=== PATIENT | male | born 1990 | race Caucasian/White ===

== ENCOUNTER 2016-11-28 21:00 | Emergency (ER) | payer MEDICARE, OTHER ==
[2016-11-28 21:07] VITALS: PULSE 85; RESP 20; TEMP 98.8
--- NOTE | 2016-11-28 21:24 | ED ---
Extremity Problem HPI - General Chief complaint: Extremity Problem,Nontraumatic Stated complaint: left leg pain Time Seen by Provider: 11/28/16 21:21 Source: patient, RN notes reviewed Mode of arrival: ambulatory Limitations: no limitations - History of Present Illness Initial comments: 26-year-old male presents to emergency room chief complaint of left calf pain. Patient states he's been driving around about 5 cigars a day for the past 2 weeks. Patient states he started some Pain and tightness. Patient denies any chest pain or shortness of breath with this. Patient states that he never anything this before. Patient denies any falls traumas or injuries. Patient states bony pains for just deep in the calf. Patient states is not currently having any other symptoms at this time.Patient denies any recent fever, chills, shortness of breath, chest pain, back pain, abdominal pain, nausea vomiting, numbness or tingling, dysuria or hematuria, constipation or diarrhea, headaches or visual changes, or any other current symptoms. - Related Data Home Medications Medication Instructions Recorded Confirmed Fenofibrate [Lofibra] 54 mg PO HS 09/06/16 11/28/16 LORazepam [Ativan] 1 mg PO TID 09/06/16 11/28/16 [place] Carbonate 300 mg PO TID 09/06/16 11/28/16 Ondansetron Odt [Zofran ODT] 4 mg PO Q8H PRN 09/08/16 11/28/16 Albuterol Inhaler [Ventolin Hfa 2 puff INHALATION RT-QID PRN 11/28/16 11/28/16 Inhaler] Dicyclomine [Bentyl] 20 mg PO QID PRN 11/28/16 11/28/16 Fluticasone/Vilanterol [Breo 1 puff INHALATION RT-DAILY 11/28/16 11/28/16 Ellipta 200-25 Mcg INH] PARoxetine HCL [Paxil] 30 mg PO HS 11/28/16 11/28/16 QUEtiapine FUMARATE [SEROquel] 300 mg PO HS 11/28/16 11/28/16 Previous Rx's Medication Instructions Recorded Cholecalciferol [Vitamin D3] 1,000 unit PO DAILY #14 tab 01/28/16 Multivitamin [Men's Multi-Vitamin] 1 tab PO DAILY #14 tablet 01/28/16 Omeprazole [PriLOSEC] 40 mg PO DAILY #14 capsule. 01/28/16 Allergies Allergy/AdvReac Type Severity Reaction Status Date / Time Latex, Natural Rubber Allergy Severe Rash/Hives Verified 11/28/16 21:07 bupropion HCl Allergy Anaphylaxis Verified 11/28/16 21:07 [From Wellbutrin] divalproex sodium Allergy Swelling Verified 11/28/16 21:07 [From Depakote] gabapentin [From Neurontin] Allergy Anaphylaxis Verified 11/28/16 21:07 lamotrigine [From Lamictal] Allergy Swelling Verified 11/28/16 21:07 NSAIDS (Non-Steroidal Allergy Rash/Hives Verified 11/28/16 21:07 Anti-Inflamma Review of Systems ROS Statement: Those systems with pertinent positive or pertinent negative responses have been documented in the HPI. ROS Other: All systems not noted in ROS Statement are negative. Past Medical History Past Medical History: GERD/Reflux, Hyperlipidemia, Osteoarthritis (OA), Sleep Apnea/CPAP/BIPAP Additional Past Medical History / Comment(s): IRRITABLE BOWEL, PAST ANEMIA CHRONIC BACK PAIN/DDD LUMBAR REGION,KIDNEY STONE asperger's syndrome, chronic heat rash to R-arm, R-torso and back. History of Any Multi-Drug Resistant Organisms: None Reported Past Surgical History: Adenoidectomy, Appendectomy, Tonsillectomy Additional Past Surgical History / Comment(s): UPPP, VASECTOMY, SX FOR UNDESCENDED TESTICLE RT SIDE,EGD W/BX(NEG), GRAFTS ON GUMS YOUTH,LUMBAR FACET ARTHROPATHY LEFT L4,L5 SACRAL ALA MEDIAL BRACH RADIAL FREQUENCY ABLATION Past Anesthesia/Blood Transfusion Reactions: No Reported Reaction Additional Past Anesthesia/Blood Transfusion Reaction / Comment(s): CLAUSTERPHOBIA Past Psychological History: Anxiety, Bipolar, Depression, PTSD Additional Psychological History / Comment(s): PYSCHOSIS,AUTISM , LIVES WITH HIS MOM SHE POA FOR MEDICL BUT PT SIGNS OWN CONSENTS Smoking Status: Heavy tobacco smoker Past Alcohol Use History: None Reported Additional Past Alcohol Use History / Comment(s): Patient was a smoker for 7 years and quit one and half years ago. He states he quit chewing tobacco 1 year ago. He denies any medical marijuana, marijuana or street drug use. He denies any alcohol use. Patient is single and does not have any children. Past Drug Use History: None Reported - Past Family History Father Family Medical History: Diabetes Mellitus Additional Family Medical History / Comment(s): Patient's father is alive with no major medical problems. Mother Family Medical History: Fibromyalgia, Thyroid Disorder Additional Family Medical History / Comment(s): IBS Sister(s) Additional Family Medical History / Comment(s): Patient has 1 sister with no major medical problems. He does not have any brothers. General Exam - General Exam Comments Initial Comments: General: The patient is awake and alert, in no distress, and does not appear acutely ill. Neck: The neck is supple, there is no tenderness. Cardiovascular: There is a regular rate and rhythm. No murmur, rub or gallop is appreciated. Respiratory: Lungs are clear to auscultation, respirations are non-labored, breath sounds are equal. No wheezes, stridor, rales, or rhonchi. Musculoskeletal: Sensation intact with 2+ pulses. Left extremity. Plantar motion of left hip left knee and left ankle. No bony tenderness. Patient does have tenderness to palpation of the left calf with a positive Homans sign. No associated swelling noted. No redness or erythema. Less than 2 capillary refill. Neurological: CN II-XII intact, There are no obvious motor or sensory deficits. Coordination appears grossly intact. Speech is normal. Skin: Skin is warm and dry and no rashes or lesions are noted. Psychiatric: Normal mood and affect. Limitations: no limitations Course Vital Signs 11/28/16 21:03 Temperature 98.8 F Pulse Rate 85 Respiratory 20 Rate O2 Sat by Pulse 100 Oximetry Medical Decision Making - Medical Decision Making 26-year-old male presents to emergency room chief complaint of left calf pain. At this time This patient underwent an ultrasound. is negative for dvt. at this time we discussed the patient with a Muscle strain. We discussed Motrin Tylenol for pain control. Discussed return parameters and follow-up. We discussed all patient's questions. He stated he understood. This will be discharged home. - Radiology Data Radiology results: report reviewed, image reviewed Disposition Clinical Impression: Pain of left calf Disposition: HOME SELF-CARE Condition: Stable Instructions: Leg Cramps (ED) Additional Instructions: Please use medication as discussed. Please follow up with family doctor if symptoms have not improved over the next two days. Please return to the emergency room if your symptoms increase or worsen or for any other concerns. Referrals: Lázaro Ramsey MD [Primary Care Provider] - 1-2 days Time of Disposition: 23:29
--- NOTE | 2016-11-28 23:28 | US ---
EXAMINATION TYPE: US venous doppler duplex LE LT DATE OF EXAM: 11/28/2016 10:59 PM COMPARISON: NONE CLINICAL HISTORY: left leg pain, no surgeries, no hx of blood clots, not on any blood thinners. SIDE PERFORMED: left VESSELS IMAGED: External Iliac Vein (EIV) Common Femoral Vein Deep Femoral Vein Greater Saphenous Vein * Femoral Vein Popliteal Vein Small Saphenous Vein * Proximal Calf Veins (* superficial vessels) TECHNOLOGIST IMPRESSION: Left Leg: Appears negative for DVT IMPRESSION: Normal exam. No evidence of deep venous thrombosis in the left leg.
== END 2016-11-28 23:34 | disposition home or self-care (01) ==
LOC: EC 21:00
DX: M79.662 Pain in left lower leg (principal); G47.30 Sleep apnea, unspecified; M19.90 Unspecified osteoarthritis, unspecified site; F84.5 Asperger's syndrome; K58.9 Irritable bowel syndrome, unspecified; F31.9 Bipolar disorder, unspecified; K21.9 Gastro-esophageal reflux disease without esophagitis; F43.10 Post-traumatic stress disorder, unspecified; F17.200 Nicotine dependence, unspecified, uncomplicated; Z88.8 Allergy status to other drugs, medicaments and biological substances; Z88.6 Allergy status to analgesic agent; Z91.040 Latex allergy status; Z79.899 Other long term (current) drug therapy
CPT/HCPCS: 99283

== ENCOUNTER 2016-12-02 15:37 | Emergency (ER) | payer MEDICARE, OTHER ==
[2016-12-02 15:48] VITALS: BP 136/72; PULSE 90; RESP 18; TEMP 98.7
--- NOTE | 2016-12-02 16:28 | XR ---
EXAMINATION TYPE: XR knee complete LT DATE OF EXAM: 12/02/2016 4:22 PM COMPARISON: NONE HISTORY: 26-year-old male left knee pain after fall yesterday TECHNIQUE: 3 views FINDINGS: No acute fracture, subluxation, or dislocation. No significant knee joint effusion seen. Extensor mec hanism appears intact. Corticated bony irregularity at the tibial tuberosity. Mild anterior soft tiss ue swelling along the infrapatellar region. IMPRESSION: 1. No acute osseous abnormality seen. 2. Some bony changes at the tibial tuberosity may reflect prior Jaye-Schlatter's disease. 3. Some anterior soft tissue swelling along the infrapatellar region could relate to soft tissue inju ry.
--- NOTE | 2016-12-02 16:31 | ED ---
Lower Extremity Injury HPI - General Chief Complaint: Extremity Injury, Lower Stated Complaint: Fall/Leg Pain Time Seen by Provider: 12/02/16 16:10 Source: patient, RN notes reviewed Mode of arrival: ambulatory Limitations: no limitations - History of Present Illness Initial Comments: Patient is a 26-year-old male presenting to the EC stating that he slipped on the ice and injured his left knee. Patient reports that he fell on his knee and swelling. Patient reports that he was recently seen in the EC for likely hours unrelated to this injury. He denies any other injuries on the fall. Patient states that he is able to walk over his leg however he does have due to pain. Denies any peripheral paresthesias and denies any hip or ankle pain. Patient has full range of motion of his foot and toes. Patient denies any recent fever, chills, shortness of breath, chest pain, back pain, abdominal pain , nausea vomiting, numbness or tingling, dysuria or hematuria, constipation or diarrhea, headaches or visual changes, or any other current symptoms - Related Data Home Medications Medication Instructions Recorded Confirmed Fenofibrate [Lofibra] 54 mg PO HS 09/06/16 12/02/16 LORazepam [Ativan] 1 mg PO TID 09/06/16 12/02/16 [place] Carbonate 300 mg PO TID 09/06/16 12/02/16 Ondansetron Odt [Zofran ODT] 4 mg PO Q8H PRN 09/08/16 12/02/16 Albuterol Inhaler [Ventolin Hfa 2 puff INHALATION RT-QID PRN 11/28/16 12/02/16 Inhaler] Dicyclomine [Bentyl] 20 mg PO QID PRN 11/28/16 12/02/16 Fluticasone/Vilanterol [Breo 1 puff INHALATION RT-DAILY 11/28/16 12/02/16 Ellipta 200-25 Mcg INH] PARoxetine HCL [Paxil] 30 mg PO HS 11/28/16 12/02/16 QUEtiapine FUMARATE [SEROquel] 300 mg PO HS 11/28/16 12/02/16 Previous Rx's Medication Instructions Recorded Cholecalciferol [Vitamin D3] 1,000 unit PO DAILY #14 tab 01/28/16 Multivitamin [Men's Multi-Vitamin] 1 tab PO DAILY #14 tablet 01/28/16 Omeprazole [PriLOSEC] 40 mg PO DAILY #14 capsule. 01/28/16 Allergies Allergy/AdvReac Type Severity Reaction Status Date / Time Latex, Natural Rubber Allergy Severe Rash/Hives Verified 12/02/16 15:49 bupropion HCl Allergy Anaphylaxis Verified 12/02/16 15:49 [From Wellbutrin] divalproex sodium Allergy Swelling Verified 12/02/16 15:49 [From Depakote] gabapentin [From Neurontin] Allergy Anaphylaxis Verified 12/02/16 15:49 lamotrigine [From Lamictal] Allergy Swelling Verified 12/02/16 15:49 NSAIDS (Non-Steroidal Allergy Rash/Hives Verified 12/02/16 15:49 Anti-Inflamma Review of Systems ROS Statement: Those systems with pertinent positive or pertinent negative responses have been documented in the HPI. ROS Other: All systems not noted in ROS Statement are negative. Past Medical History Past Medical History: GERD/Reflux, Hyperlipidemia, Osteoarthritis (OA), Sleep Apnea/CPAP/BIPAP Additional Past Medical History / Comment(s): IRRITABLE BOWEL, PAST ANEMIA CHRONIC BACK PAIN/DDD LUMBAR REGION,KIDNEY STONE asperger's syndrome, chronic heat rash to R-arm, R-torso and back. History of Any Multi-Drug Resistant Organisms: None Reported Past Surgical History: Adenoidectomy, Appendectomy, Tonsillectomy Additional Past Surgical History / Comment(s): UPPP, VASECTOMY, SX FOR UNDESCENDED TESTICLE RT SIDE,EGD W/BX(NEG), GRAFTS ON GUMS YOUTH,LUMBAR FACET ARTHROPATHY LEFT L4,L5 SACRAL ALA MEDIAL BRACH RADIAL FREQUENCY ABLATION Past Anesthesia/Blood Transfusion Reactions: No Reported Reaction Additional Past Anesthesia/Blood Transfusion Reaction / Comment(s): CLAUSTERPHOBIA Past Psychological History: Anxiety, Bipolar, Depression, PTSD Additional Psychological History / Comment(s): PYSCHOSIS,AUTISM , LIVES WITH HIS MOM SHE POA FOR MEDICL BUT PT SIGNS OWN CONSENTS Smoking Status: Heavy tobacco smoker Past Alcohol Use History: Daily Additional Past Alcohol Use History / Comment(s): Patient was a smoker for 7 years and quit one and half years ago. He states he quit chewing tobacco 1 year ago. He denies any medical marijuana, marijuana or street drug use. He denies any alcohol use. Patient is single and does not have any children. Past Drug Use History: None Reported - Past Family History Father Family Medical History: Diabetes Mellitus Additional Family Medical History / Comment(s): Patient's father is alive with no major medical problems. Mother Family Medical History: Fibromyalgia, Thyroid Disorder Additional Family Medical History / Comment(s): IBS Sister(s) Additional Family Medical History / Comment(s): Patient has 1 sister with no major medical problems. He does not have any brothers. General Exam - General Exam Comments Initial Comments: Is a pleasant 18-year-old male. He is on appear to be in any acute distress. Limitations: no limitations General appearance: alert, in no apparent distress Head exam: Present: atraumatic, normocephalic, normal inspection Eye exam: Present: normal appearance, PERRL, EOMI. Absent: scleral icterus, conjunctival injection, periorbital swelling ENT exam: Present: normal exam, mucous membranes moist Neck exam: Present: normal inspection. Absent: tenderness, meningismus, lymphadenopathy Respiratory exam: Present: normal lung sounds bilaterally. Absent: respiratory distress, wheezes, rales, rhonchi, stridor Cardiovascular Exam: Present: regular rate, normal rhythm, normal heart sounds. Absent: systolic murmur, diastolic murmur, rubs, gallop, clicks Extremities exam: Present: normal inspection, full ROM, normal capillary refill. Absent: tenderness, pedal edema, joint swelling, calf tenderness Left Upper Leg exam: Present: normal inspection, full ROM Knee exam: Present: normal inspection, full ROM Lower Leg exam: Present: normal inspection, full ROM (Evidence of [place]- Schlatter syndrome with increased tibial tuberosity.), tenderness (mild tenderness to MCL) Ankle exam: Present: normal inspection, full ROM Foot/Toe exam: Present: normal inspection, full ROM Neurovascular tendon exam: Present: no vascular compromise Gait: observed and normal Back exam: Present: normal inspection Neurological exam: Present: alert, oriented X3, CN II-XII intact Psychiatric exam: Present: normal affect, normal mood Skin exam: Present: warm, dry, intact, normal color. Absent: rash Course Vital Signs 12/02/16 15:45 Temperature 98.7 F Pulse Rate 90 Respiratory 18 Rate Blood Pressure 136/72 O2 Sat by Pulse 96 Oximetry Medical Decision Making - Medical Decision Making Patient is 26-year-old with chief complaint of left knee injury after slipping on the ice and falling. He denies any other injury. X-rays read to know no acute abnormalities. 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 Patient will be given an Zeeshan wrap and anti-inflammatory medications. Patient also be given a referral to orthopedics. - Radiology Data Radiology results: report reviewed Left knee x-ray reveals no acute osseous abnormality seen. There are some bony changes at the tibial tuberosity that may reflect prior Neil-Schlatter's disease. Some anterior soft tissue swelling along the infrapatellar region which could relate to a soft tissue injury. Was read by Dr. Elam. Disposition Clinical Impression: Strain of left knee Disposition: HOME SELF-CARE Condition: Good Instructions: Knee Sprain (ED) Additional Instructions: Patient started to rest, ice, and elevate leg. Follow-up with a orthopedic physician symptoms continue to persist. Take anti-inflammatory medications as discussed. Return to the EC if any alarming signs or symptoms occur. Referrals: Lázaro Ramsey MD [Primary Care Provider] - 1-2 days Time of Disposition: 16:34
== END 2016-12-02 16:41 | disposition home or self-care (01) ==
LOC: EC 15:37
DX: S86.812A Strain of other muscle(s) and tendon(s) at lower leg level, left leg, initial encounter (principal); W00.0XXA Fall on same level due to ice and snow, initial encounter; E78.5 Hyperlipidemia, unspecified; M19.90 Unspecified osteoarthritis, unspecified site; Z79.899 Other long term (current) drug therapy; Z88.8 Allergy status to other drugs, medicaments and biological substances; Z88.6 Allergy status to analgesic agent; Z91.040 Latex allergy status; F17.200 Nicotine dependence, unspecified, uncomplicated; Z79.51 Long term (current) use of inhaled steroids; F43.10 Post-traumatic stress disorder, unspecified
CPT/HCPCS: 99283

== ENCOUNTER 2016-12-23 00:20 | Emergency (ER) | payer MEDICARE, OTHER ==
--- NOTE | 2016-12-23 00:29 | ED ---
General Adult HPI - General Stated complaint: SOB Time Seen by Provider: 12/23/16 00:20 Source: RN notes reviewed - History of Present Illness Initial comments: This is a 26-year-old male who presents emergency Department by EMS after having an asthma attack at home. Patient states she could barely breathe when he called EMS. EMS states he wasn't moving much air at the scene they gave him 2 breathing treatments as well as some Solu-Medrol. Patient states that much better but not quite to his baseline. Patient states this started about 2 hours prior to arrival. Patient states prior to that he was having no symptoms. Patient denied any fever chills or cough recently. Patient denied any chest pain. Patient denied headache patient denied numbness weakness. Patient denied abdominal pain patient denies nausea vomiting diarrhea. Patient denied any lightheadedness dizziness or near syncopal episode. Patient denies any leg swelling or calf pain. Patient states he only has a rescue inhaler at home and he uses had a couple of times it did not seem to help. - Related Data Home Medications Medication Instructions Recorded Confirmed Fenofibrate [Lofibra] 54 mg PO HS 09/06/16 12/23/16 LORazepam [Ativan] 1 mg PO TID 09/06/16 12/23/16 [place] Carbonate 300 mg PO TID 09/06/16 12/23/16 Ondansetron Odt [Zofran ODT] 4 mg PO Q8H PRN 09/08/16 12/23/16 Albuterol Inhaler [Ventolin Hfa 2 puff INHALATION RT-QID PRN 11/28/16 12/23/16 Inhaler] Dicyclomine [Bentyl] 20 mg PO QID PRN 11/28/16 12/23/16 Fluticasone/Vilanterol [Breo 1 puff INHALATION RT-DAILY 11/28/16 12/23/16 Ellipta 200-25 Mcg INH] PARoxetine HCL [Paxil] 30 mg PO HS 11/28/16 12/23/16 QUEtiapine FUMARATE [SEROquel] 300 mg PO HS 11/28/16 12/23/16 Previous Rx's Medication Instructions Recorded Cholecalciferol [Vitamin D3] 1,000 unit PO DAILY #14 tab 01/28/16 Multivitamin [Men's Multi-Vitamin] 1 tab PO DAILY #14 tablet 01/28/16 Omeprazole [PriLOSEC] 40 mg PO DAILY #14 capsule. 01/28/16 predniSONE 40 mg PO DAILY #8 tab 12/23/16 Allergies Allergy/AdvReac Type Severity Reaction Status Date / Time Latex, Natural Rubber Allergy Severe Rash/Hives Verified 12/23/16 00:32 bupropion HCl Allergy Anaphylaxis Verified 12/23/16 00:32 [From Wellbutrin] divalproex sodium Allergy Swelling Verified 12/23/16 00:32 [From Depakote] gabapentin [From Neurontin] Allergy Anaphylaxis Verified 12/23/16 00:32 lamotrigine [From Lamictal] Allergy Swelling Verified 12/23/16 00:32 NSAIDS (Non-Steroidal Allergy Rash/Hives Verified 12/23/16 00:32 Anti-Inflamma Review of Systems ROS Statement: Those systems with pertinent positive or pertinent negative responses have been documented in the HPI. ROS Other: All systems not noted in ROS Statement are negative. Past Medical History Past Medical History: GERD/Reflux, Hyperlipidemia, Osteoarthritis (OA), Sleep Apnea/CPAP/BIPAP Additional Past Medical History / Comment(s): IRRITABLE BOWEL, PAST ANEMIA CHRONIC BACK PAIN/DDD LUMBAR REGION,KIDNEY STONE asperger's syndrome, chronic heat rash to R-arm, R-torso and back. History of Any Multi-Drug Resistant Organisms: None Reported Past Surgical History: Adenoidectomy, Appendectomy, Tonsillectomy Additional Past Surgical History / Comment(s): UPPP, VASECTOMY, SX FOR UNDESCENDED TESTICLE RT SIDE,EGD W/BX(NEG), GRAFTS ON GUMS YOUTH,LUMBAR FACET ARTHROPATHY LEFT L4,L5 SACRAL ALA MEDIAL BRACH RADIAL FREQUENCY ABLATION Past Anesthesia/Blood Transfusion Reactions: No Reported Reaction Additional Past Anesthesia/Blood Transfusion Reaction / Comment(s): CLAUSTERPHOBIA Past Psychological History: Anxiety, Bipolar, Depression, PTSD Additional Psychological History / Comment(s): PYSCHOSIS,AUTISM , LIVES WITH HIS MOM SHE POA FOR MEDICL BUT PT SIGNS OWN CONSENTS Smoking Status: Heavy tobacco smoker Past Alcohol Use History: Daily Additional Past Alcohol Use History / Comment(s): Patient was a smoker for 7 years and quit one and half years ago. He states he quit chewing tobacco 1 year ago. He denies any medical marijuana, marijuana or street drug use. He denies any alcohol use. Patient is single and does not have any children. Past Drug Use History: None Reported - Past Family History Father Family Medical History: Diabetes Mellitus Additional Family Medical History / Comment(s): Patient's father is alive with no major medical problems. Mother Family Medical History: Fibromyalgia, Thyroid Disorder Additional Family Medical History / Comment(s): IBS Sister(s) Additional Family Medical History / Comment(s): Patient has 1 sister with no major medical problems. He does not have any brothers. General Exam - General Exam Comments Initial Comments: GENERAL: Patient is well-developed and well-nourished. Patient is nontoxic and well- hydrated and is in mild distress. ENT: Neck is soft and supple. No significant lymphadenopathy is noted. Oropharynx is clear. Moist mucous membranes. Neck has full range of motion without eliciting any pain. EYES: The sclera were anicteric and conjunctiva were pink and moist. Extraocular movements were intact and pupils were equal round and reactive to light. Eyelids were unremarkable. PULMONARY: Unlabored respirations. Good breath sounds bilaterally. No audible rales rhonchi or wheezing was noted. CARDIOVASCULAR: Patient is tachycardic at about 110 beats a minute ABDOMEN: Soft and nontender with normal bowel sounds. No palpable organomegaly was noted. There is no palpable pulsatile mass. SKIN: Skin is clear with no lesions or rashes and otherwise unremarkable. NEUROLOGIC: Patient is alert and oriented x3. Cranial nerves II through XII are grossly intact. Motor and sensory are also intact. Normal speech, volume and content. Symmetrical smile. MUSCULOSKELETAL: Normal extremities with adequate strength and full range of motion. LYMPHATICS: No significant lymphadenopathy is noted PSYCHIATRIC: Normal psychiatric evaluation. Course Vital Signs 12/23/16 12/23/16 00:20 01:10 Temperature 97.8 F Pulse Rate 115 H 98 Respiratory 24 18 Rate Blood Pressure 125/85 133/81 O2 Sat by Pulse 100 Oximetry Medical Decision Making - Medical Decision Making EKG shows a sinus tachycardia at 109 bpm [place] interval 236 QRS is under 22 QT interval 368 QTC is 495. Patient's EKG shows no ST segment elevation or depression or T wave abnormalities are noted Patient's chest x-ray shows no acute abdomen. I went back into the room to reevaluate the patient his lungs were clear and he stated he felt back to his baseline. Patient states he does have access to a nebulizer at home and he will do that next few days. - Lab Data Result diagrams: 12/23/16 00:38 12/23/16 00:38 Lab Results 12/23/16 12/23/16 Range/Units 00:38 00:38 WBC 6.7 (3.8-10.6) k/uL RBC 4.40 (4.30-5.90) m/uL Hgb 13.4 (13.0-17.5) gm/dL Hct 41.7 (39.0-53.0) % MCV 94.7 (80.0-100.0) fL MCH 30.5 (25.0-35.0) pg MCHC 32.2 (31.0-37.0) g/dL RDW 13.5 (11.5-15.5) % Plt Count 217 (150-450) k/uL Neutrophils % 62 % Lymphocytes % 27 % Monocytes % 6 % Eosinophils % 3 % Basophils % 1 % Neutrophils # 4.2 (1.3-7.7) k/uL Lymphocytes # 1.8 (1.0-4.8) k/uL Monocytes # 0.4 (0-1.0) k/uL Eosinophils # 0.2 (0-0.7) k/uL Basophils # 0.0 (0-0.2) k/uL Sodium 141 (137-145) mmol/L Potassium 3.5 (3.5-5.1) mmol/L Chloride 107 (98-107) mmol/L Carbon Dioxide 23 (22-30) mmol/L Anion Gap 11 mmol/L BUN 16 (9-20) mg/dL Creatinine 1.00 (0.66-1.25) mg/dL Est GFR (MDRD) Af Amer >60 (>60 ml/min/1.73 sqM) Est GFR (MDRD) Non-Af >60 (>60 ml/min/1.73 sqM) Glucose 139 H (74-99) mg/dL Calcium 9.9 (8.4-10.2) mg/dL Total Bilirubin 0.8 (0.2-1.3) mg/dL AST 20 (17-59) U/L ALT 32 (21-72) U/L Alkaline Phosphatase 40 (38-126) U/L Total Protein 6.9 (6.3-8.2) g/dL Albumin 4.4 (3.5-5.0) g/dL Disposition Clinical Impression: Acute asthma exacerbation Disposition: HOME SELF-CARE Instructions: Asthma (ED) Prescriptions: predniSONE 40 mg PO DAILY #8 tab Referrals: Lázaro Ramsey MD [Primary Care Provider] - 1-2 days Time of Disposition: 01:35
[2016-12-23 00:32] VITALS: TEMP 97.8
[2016-12-23 01:00] LABS: Basophils % (A) 1 %; CHCM 32.9; Eosinophils # (A) 0.2 k/uL (0-0.7); Eosinophils % (A) 3 %; HCT 41.7 % (39.0-53.0); HDW 2.53; HGB 13.4 gm/dL (13.0-17.5); Luc % (Auto) 2; Lymphocytes # (A) 1.8 k/uL (1.0-4.8); Lymphocytes % (A) 27 %; MCH 30.5 pg (25.0-35.0); MCHC 32.2 g/dL (31.0-37.0); MCV 94.7 fL (80.0-100.0); Mean Platelet Volume 8.8; Monocytes # (A) 0.4 k/uL (0-1.0); Monocytes % (A) 6 %; Neutrophils # (A) 4.2 k/uL (1.3-7.7); Neutrophils % (A) 62 %; RDW 13.5 % (11.5-15.5); WBC 6.7 k/uL (3.8-10.6); WBC (Perox) 6.88
--- NOTE | 2016-12-23 01:14 | XR ---
EXAMINATION TYPE: XR chest 2V DATE OF EXAM: 12/23/2016 12:47 AM COMPARISON: October 28, 2016 HISTORY: Difficulty in breathing TECHNIQUE: Frontal and lateral views of the chest are obtained. FINDINGS: There is suggestion of azygous fissure in the right upper lobe of lung. There is possibility of chron ic bronchitis changes with peribronchial cuffing. There is suggestion of mild left-sided pleural effu nadira and left basilar lung infiltrate. No pneumothorax is noted. The cardiac silhouette size is within normal limits. The osseous structures are intact. IMPRESSION: 1. Suggestion of mild left-sided pleural effusion and left basilar lung infiltrate better seen in the lateral view. 2. Possible chronic bronchitis.
[2016-12-23 01:21] LABS: ALT 32 U/L (21-72); AST 20 U/L (17-59); Alkaline Phosphatase 40 U/L (38-126); Anion Gap 11 mmol/L; Blood Urea Nitrogen 16 mg/dL (9-20); Calcium 9.9 mg/dL (8.4-10.2); Carbon Dioxide 23 mmol/L (22-30); Chloride 107 mmol/L (98-107); Glucose 139 mg/dL (74-99); Non-African American GFR(MDRD) >60 (>60 ml/min/1.73 sqM); Potassium 3.5 mmol/L (3.5-5.1); Sodium 141 mmol/L (137-145); Total Bilirubin 0.8 mg/dL (0.2-1.3); Total Protein 6.9 g/dL (6.3-8.2)
[2016-12-23 01:43] VITALS: BP 133/75; PULSE 100; RESP 20
== END 2016-12-23 01:42 | disposition home or self-care (01) ==
LOC: EC 00:20
DX: J45.901 Unspecified asthma with (acute) exacerbation (principal); F41.9 Anxiety disorder, unspecified; E78.5 Hyperlipidemia, unspecified; F31.9 Bipolar disorder, unspecified; K58.9 Irritable bowel syndrome, unspecified; Z79.899 Other long term (current) drug therapy; Z79.51 Long term (current) use of inhaled steroids; Z88.8 Allergy status to other drugs, medicaments and biological substances; Z91.040 Latex allergy status; G47.30 Sleep apnea, unspecified; Z99.89 Dependence on other enabling machines and devices; Z87.891 Personal history of nicotine dependence
CPT/HCPCS: 36415; 71020; 80053; 85025; 93005; 99285

== ENCOUNTER 2016-12-23 18:29 | Observation (INO) | payer MEDICARE, OTHER ==
[2016-12-23] MEDS ORDERED: ALBUTEROL NEBULIZED 2.5 MG/3 ML INHALATION STA (18:39)
[2016-12-23] MEDS ORDERED: IPRATROPIUM-ALBUTEROL 3 ML NEB INHALATION STA (19:01)
[2016-12-23] MEDS ORDERED: SODIUM CHLORIDE 0.9% 1,000 ML IV ONE (19:06)
[2016-12-23] MEDS ORDERED: methylPREDNISolone SOD SUCCI 125 MG/2 ML VIAL IV STA (19:06)
[2016-12-23] MEDS ORDERED: ACETAMINOPHEN TAB 500 MG TAB PO STA (19:07)
--- NOTE | 2016-12-23 19:27 | ED ---
SOB HPI - General Chief Complaint: Shortness of Breath Stated Complaint: nya Time Seen by Provider: 12/23/16 18:56 Source: patient Mode of arrival: ambulatory Limitations: no limitations - History of Present Illness Initial Comments: This is a 26-year-old male with a recent diagnosis of asthma who presents emergency department for worsening shortness of breath over the last 24 hours. He was seen here in the emergency department earlier this morning and was discharged home after negative workup. He states he's been using his albuterol throughout the day and he has had progressively worsening shortness of breath. He denies any cough. No chest pain. No abdominal pain. No fevers or chills at home. He denies any other complaints. - Related Data Home Medications Medication Instructions Recorded Confirmed Fenofibrate [Lofibra] 54 mg PO HS 09/06/16 12/23/16 LORazepam [Ativan] 1 mg PO TID PRN 09/06/16 12/23/16 [place] Carbonate 300 mg PO TID 09/06/16 12/23/16 Ondansetron Odt [Zofran ODT] 4 mg PO Q8H PRN 09/08/16 12/23/16 Albuterol Inhaler [Ventolin Hfa 2 puff INHALATION RT-QID PRN 11/28/16 12/23/16 Inhaler] Dicyclomine [Bentyl] 20 mg PO QID PRN 11/28/16 12/23/16 Fluticasone/Vilanterol [Breo 1 puff INHALATION RT-DAILY 11/28/16 12/23/16 Ellipta 200-25 Mcg INH] PARoxetine HCL [Paxil] 30 mg PO HS 11/28/16 12/23/16 Montelukast [Singulair] 10 mg PO HS 12/23/16 12/23/16 QUEtiapine [SEROquel] 800 mg PO HS 12/23/16 12/23/16 Previous Rx's Medication Instructions Recorded Cholecalciferol [Vitamin D3] 1,000 unit PO DAILY #14 tab 01/28/16 Multivitamin [Men's Multi-Vitamin] 1 tab PO DAILY #14 tablet 01/28/16 Omeprazole [PriLOSEC] 40 mg PO DAILY #14 capsule. 01/28/16 predniSONE 40 mg PO DAILY #8 tab 12/23/16 Allergies Allergy/AdvReac Type Severity Reaction Status Date / Time Latex, Natural Rubber Allergy Severe Rash/Hives Verified 12/23/16 19:39 bupropion HCl Allergy Anaphylaxis Verified 12/23/16 19:39 [From Wellbutrin] divalproex sodium Allergy Swelling Verified 12/23/16 19:39 [From Depakote] gabapentin [From Neurontin] Allergy Anaphylaxis Verified 12/23/16 19:39 lamotrigine [From Lamictal] Allergy Swelling Verified 12/23/16 19:39 NSAIDS (Non-Steroidal Allergy Rash/Hives Verified 12/23/16 19:39 Anti-Inflamma Review of Systems ROS Statement: Those systems with pertinent positive or pertinent negative responses have been documented in the HPI. ROS Other: All systems not noted in ROS Statement are negative. Past Medical History Past Medical History: GERD/Reflux, Hyperlipidemia, Osteoarthritis (OA), Sleep Apnea/CPAP/BIPAP Additional Past Medical History / Comment(s): IRRITABLE BOWEL, PAST ANEMIA CHRONIC BACK PAIN/DDD LUMBAR REGION,KIDNEY STONE asperger's syndrome, chronic heat rash to R-arm, R-torso and back. History of Any Multi-Drug Resistant Organisms: None Reported Past Surgical History: Adenoidectomy, Appendectomy, Tonsillectomy Additional Past Surgical History / Comment(s): UPPP, VASECTOMY, SX FOR UNDESCENDED TESTICLE RT SIDE,EGD W/BX(NEG), GRAFTS ON GUMS YOUTH,LUMBAR FACET ARTHROPATHY LEFT L4,L5 SACRAL ALA MEDIAL BRACH RADIAL FREQUENCY ABLATION Past Anesthesia/Blood Transfusion Reactions: No Reported Reaction Additional Past Anesthesia/Blood Transfusion Reaction / Comment(s): CLAUSTERPHOBIA Past Psychological History: Anxiety, Bipolar, Depression, PTSD Additional Psychological History / Comment(s): PYSCHOSIS,AUTISM , LIVES WITH HIS MOM SHE POA FOR MEDICL BUT PT SIGNS OWN CONSENTS Smoking Status: Heavy tobacco smoker Past Alcohol Use History: Daily Additional Past Alcohol Use History / Comment(s): Patient was a smoker for 7 years and quit one and half years ago. He states he quit chewing tobacco 1 year ago. He denies any medical marijuana, marijuana or street drug use. He denies any alcohol use. Patient is single and does not have any children. Past Drug Use History: None Reported - Past Family History Father Family Medical History: Diabetes Mellitus Additional Family Medical History / Comment(s): Patient's father is alive with no major medical problems. Mother Family Medical History: Fibromyalgia, Thyroid Disorder Additional Family Medical History / Comment(s): IBS Sister(s) Additional Family Medical History / Comment(s): Patient has 1 sister with no major medical problems. He does not have any brothers. General Exam - General Exam Comments Initial Comments: Constitutional: Awake alert Appears comfortable Head: Normocephalic atraumatic Eyes: no conjunctival injection No scleral icterus EOMI Neck: No JVD Supple Heart: Regular rate rhythm normal S1-S2 no murmurs Lungs: Diminished breath sounds bilaterally No wheezing No rales, tachypnea Abdomen: Soft nondistended nontender Extremities: Non edematous DP pulses intact Radial pulses intact Neuro: A&Ox3 No focal neurologic deficits Psych: Appropriate mood and affect Limitations: no limitations Course Vital Signs 12/23/16 12/23/16 12/23/16 18:32 18:48 18:59 Temperature 100 F H Pulse Rate 130 H 128 H 115 H Respiratory 26 H Rate Blood Pressure 129/79 O2 Sat by Pulse 100 Oximetry 12/23/16 12/23/16 12/23/16 19:03 19:23 20:07 Temperature 98.0 F Pulse Rate 117 H 94 91 Respiratory 20 Rate Blood Pressure 135/73 O2 Sat by Pulse 99 Oximetry Medical Decision Making - Medical Decision Making Patient is improved after breathing treatments. Patient's breath sounds are equal bilaterally and improved. Ox and saturations have been stable since he arrived. He has not required oxygen. Chest x-ray was reviewed from this morning and showed what appeared to be a left-sided infiltrate. Chest x-ray now and does not show the same however the patient is febrile and tachycardic on arrival with elevated lactate. A going to keep him in observation overnight for breathing treatments and antibiotics. Dr. Terrazas accepts the admission. - Lab Data Result diagrams: 12/23/16 19:22 12/23/16 19:22 Lab Results 12/23/16 12/23/16 12/23/16 Range/Units 19:22 19:22 19:22 WBC 9.8 (3.8-10.6) k/uL RBC 4.33 (4.30-5.90) m/uL Hgb 13.2 (13.0-17.5) gm/dL Hct 40.8 (39.0-53.0) % MCV 94.2 (80.0-100.0) fL MCH 30.4 (25.0-35.0) pg MCHC 32.3 (31.0-37.0) g/dL RDW 13.7 (11.5-15.5) % Plt Count 282 (150-450) k/uL Neutrophils % 79 % Lymphocytes % 13 % Monocytes % 8 % Eosinophils % 0 % Basophils % 0 % Neutrophils # 7.7 (1.3-7.7) k/uL Lymphocytes # 1.2 (1.0-4.8) k/uL Monocytes # 0.8 (0-1.0) k/uL Eosinophils # 0.0 (0-0.7) k/uL Basophils # 0.0 (0-0.2) k/uL Sodium 142 (137-145) mmol/L Potassium 4.3 (3.5-5.1) mmol/L Chloride 104 (98-107) mmol/L Carbon Dioxide 22 (22-30) mmol/L Anion Gap 16 mmol/L BUN 13 (9-20) mg/dL Creatinine 1.06 (0.66-1.25) mg/dL Est GFR (MDRD) Af Amer >60 (>60 ml/min/1.73 sqM) Est GFR (MDRD) Non-Af >60 (>60 ml/min/1.73 sqM) Glucose 107 H (74-99) mg/dL Plasma Lactic Acid Gaudencio 3.5 H* (0.7-2.0) mmol/L Calcium 10.5 H (8.4-10.2) mg/dL Magnesium 2.0 (1.6-2.3) mg/dL Total Bilirubin 0.4 (0.2-1.3) mg/dL AST 20 (17-59) U/L ALT 28 (21-72) U/L Alkaline Phosphatase 45 (38-126) U/L Total Protein 7.4 (6.3-8.2) g/dL Albumin 4.7 (3.5-5.0) g/dL Influenza Type A RNA (Not Detectd) Influenza Type B (PCR) (Not Detectd) 12/23/16 Range/Units 19:22 WBC (3.8-10.6) k/uL RBC (4.30-5.90) m/uL Hgb (13.0-17.5) gm/dL Hct (39.0-53.0) % MCV (80.0-100.0) fL MCH (25.0-35.0) pg MCHC (31.0-37.0) g/dL RDW (11.5-15.5) % Plt Count (150-450) k/uL Neutrophils % % Lymphocytes % % Monocytes % % Eosinophils % % Basophils % % Neutrophils # (1.3-7.7) k/uL Lymphocytes # (1.0-4.8) k/uL Monocytes # (0-1.0) k/uL Eosinophils # (0-0.7) k/uL Basophils # (0-0.2) k/uL Sodium (137-145) mmol/L Potassium (3.5-5.1) mmol/L Chloride (98-107) mmol/L Carbon Dioxide (22-30) mmol/L Anion Gap mmol/L BUN (9-20) mg/dL Creatinine (0.66-1.25) mg/dL Est GFR (MDRD) Af Amer (>60 ml/min/1.73 sqM) Est GFR (MDRD) Non-Af (>60 ml/min/1.73 sqM) Glucose (74-99) mg/dL Plasma Lactic Acid Gaudencio (0.7-2.0) mmol/L Calcium (8.4-10.2) mg/dL Magnesium (1.6-2.3) mg/dL Total Bilirubin (0.2-1.3) mg/dL AST (17-59) U/L ALT (21-72) U/L Alkaline Phosphatase (38-126) U/L Total Protein (6.3-8.2) g/dL Albumin (3.5-5.0) g/dL Influenza Type A RNA Not Detected (Not Detectd) Influenza Type B (PCR) Not Detected (Not Detectd) Disposition Clinical Impression: Asthma exacerbation, CAP (community acquired pneumonia) Disposition: ADMITTED IP TO THIS HOSP Condition: Stable
[2016-12-23 19:39] LABS: Basophils % (A) 0 %; CH 31.2; CHCM 33.3; Eosinophils % (A) 0 %; HCT 40.8 % (39.0-53.0); HDW 2.53; HGB 13.2 gm/dL (13.0-17.5); Luc # (Auto) 0.06; Luc % (Auto) 1; Lymphocytes # (A) 1.2 k/uL (1.0-4.8); Lymphocytes % (A) 13 %; MCH 30.4 pg (25.0-35.0); MCHC 32.3 g/dL (31.0-37.0); MCV 94.2 fL (80.0-100.0); Mean Platelet Volume 8.6; Monocytes # (A) 0.8 k/uL (0-1.0); Monocytes % (A) 8 %; Neutrophils # (A) 7.7 k/uL (1.3-7.7); Neutrophils % (A) 79 %; RBC 4.33 m/uL (4.30-5.90); RDW 13.7 % (11.5-15.5); WBC 9.8 k/uL (3.8-10.6); WBC (Perox) 10.07
[2016-12-23 19:49] LABS: ALT 28 U/L (21-72); AST 20 U/L (17-59); Alkaline Phosphatase 45 U/L (38-126); Anion Gap 16 mmol/L; Blood Urea Nitrogen 13 mg/dL (9-20); Calcium 10.5 mg/dL (8.4-10.2); Carbon Dioxide 22 mmol/L (22-30); Chloride 104 mmol/L (98-107); Glucose 107 mg/dL (74-99); Non-African American GFR(MDRD) >60 (>60 ml/min/1.73 sqM); Potassium 4.3 mmol/L (3.5-5.1); Sodium 142 mmol/L (137-145); Total Bilirubin 0.4 mg/dL (0.2-1.3); Total Protein 7.4 g/dL (6.3-8.2)
[2016-12-23] MEDS ORDERED: LEVOFLOXACIN 500MG-D5W PMX 500 MG in DEXTROSE/WATER 1 100ML.BAG IVPB STA (20:11)
--- NOTE | 2016-12-23 20:21 | XR ---
EXAMINATION TYPE: XR chest 3V DATE OF EXAM: 12/23/2016 7:45 PM COMPARISON: NONE HISTORY: Pain and fever TECHNIQUE: Frontal and 2 lateral views of the chest are obtained. FINDINGS: There is no focal air space opacity, pleural effusion, or pneumothorax seen. The cardiac silhouette size is within normal limits. The osseous structures are intact. IMPRESSION: No acute cardiopulmonary process.
[2016-12-23] MEDS: SODIUM CHLORIDE 0.9% 1,000 ML IV SCH (20:56)
[2016-12-23] MEDS ORDERED: PARoxetine 10 MG TAB PO SCH (21:00)
[2016-12-23] MEDS: QUEtiapine 400 MG TAB PO SCH (21:46)
[2016-12-23] MEDS: LITHIUM CARBONATE 300 MG CAP PO SCH (21:47)
[2016-12-23] MEDS: MONTELUKAST 10 MG TAB PO SCH (21:47)
[2016-12-23] MEDS: LORazepam 1 MG TAB PO PRN (21:50)
[2016-12-23] MEDS ORDERED: IPRATROPIUM-ALBUTEROL 3 ML NEB INHALATION PRN (23:02)
[2016-12-24] MEDS: IPRATROPIUM-ALBUTEROL 3 ML NEB INHALATION SCH ×4 (07:49→19:00)
[2016-12-24] MEDS: predniSONE 20 MG TAB PO SCH (08:40)
[2016-12-24] MEDS: LITHIUM CARBONATE 300 MG CAP PO SCH ×3 (08:41→19:38)
[2016-12-24] MEDS: PANTOPRAZOLE 40 MG TABLET PO SCH (08:41)
[2016-12-24] MEDS: LORazepam 1 MG TAB PO PRN ×3 (08:43→19:35)
[2016-12-24] MEDS: SODIUM CHLORIDE 0.9% 1,000 ML IV SCH ×3 (09:11→19:50)
--- NOTE | 2016-12-24 14:07 | HP ---
DATE OF ADMISSION: CHIEF COMPLAINT: Difficulty in breathing. HISTORY OF PRESENT ILLNESS: Mr. Delgado is a 26-year-old male with a past medical history of GERD, hyperlipidemia, Asperger syndrome, anxiety, bipolar disorder, depression, PTSD, coming into the hospital with a chief complaint of difficulty in breathing. The patient came into the ER yesterday morning and then he was given breathing treatments and sent home but states after going home he was taking his albuterol inhalations, but did not feel better and so came into the hospital again. At the time of admission, the patient was found to have fever of 100 and he was tachycardic and tachypneic so patient was admitted for further evaluation. Patient states that he has been having difficulty in breathing and also chest tightness for the past 2 days. Patient has cough but no increased sputum production. He smokes everyday and thinks that he has chronic bronchitis. But overall he was feeling fatigue and has generalized weakness. He denies having any chest pain or abdominal pain. REVIEW OF SYSTEMS: CONSTITUTIONAL: No fevers, chills or rigors. RESPIRATORY: As per HPI. CARDIAC: No chest pain or palpitations. GI: No abdominal pain, nausea, vomiting, or diarrhea. : No dysuria or hematuria. HEMATOLOGICAL: No history of recurrent infections or easy bruising. RHEUMATOLOGICAL: No history of joint aches or pains. All 13 review of systems are done and negative except for the ones mentioned in the HPI. Past medical history is significant for GERD, hyperlipidemia, IBS, Asperger syndrome and anxiety, depression, PTSD. Allergies to LATEX, BUPROPION, DEPAKOTE, GABAPENTIN, LAMOTRIGINE and NSAIDs. The patient's home medications he is on: 1. Multivitamin 1 tablet p.o. daily. 2. Omeprazole 40 mg p.o. daily. 3. Cholecalciferol 1000 units p.o. daily. 4. [place] carbonate 300 mg p.o. 3 times a day. 5. Ativan 1 mg p.o. 3 times a day. 6. Fenofibrate 54 mg q.h.s. 7. Zofran 4 mg p.o. q.8 hours p.r.n. for nausea and vomiting. 8. Breo Ellipta 200/25 one puff b.i.d. 9. Albuterol inhalations ( ) mg p.o. 4 times a day. 10. Prednisone 20 mg p.o. daily. 11. Singulair 10 mg p.o. q.h.s. 12. Seroquel 400 mg p.o. 2 pills q.h.s. SOCIAL HISTORY: He smokes every day 1 to 2 cigarettes per day. Alcohol occasionally and socially and no history of intravenous drug abuse. PSYCHIATRIC HISTORY: Patient has significant psychiatric history with anxiety, depression, bipolar disorder as Asperger syndrome. He lives with his mother at home and fiance. FAMILY HISTORY: The patient denies having any family history of asthma, but positive for IBS and diabetes mellitus. On examination at the time of admission, the patient's heart rate 130, respiratory rate 26, temperature 100, blood pressure 129/79, saturating at 100% on room air. GENERAL EXAMINATION: The patient is appropriate for his age. He has mild tremors. HEAD: Atraumatic, normocephalic. EYES: Pupils round and reactive to light. NECK: No JVD. No thyromegaly. CARDIOVASCULAR: S1, S2 heard. No additional sounds. LUNGS: Bilateral breath sounds are positive and no wheezing. Slightly diminished breath sounds on the right side compared to the left. ABDOMEN: Soft, nontender, no organomegaly. Bowel sounds are positive. EXTREMITIES: No edema, no cyanosis, no clubbing. 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 No focal neurological deficits. PSYCHIATRIC: Appropriate in mood and affect. PATIENT'S LABS: White count of 9.8, hemoglobin 13.2, platelets of 282. Sodium 142, potassium 4.3, chloride 104, bicarb 22, BUN 13, creatinine 1.06. Lactic acid at 3.5 and repeat at 2.3. Serology negative for influenza A and B. Chest x-ray that was done from yesterday showing mild left-sided pleural effusion and left basilar lung infiltrate that was seen in the lateral view. ASSESSMENT AND PLAN: 1. Community-acquired pneumonia. The patient has been started on Levaquin, that will be continued. 2. Acute exacerbation of asthma secondary to #1. Will continue with steroids and breathing treatments. 3. History of posttraumatic stress disorder. 4. History of anxiety/depression. 5. Asperger syndrome. 6. Hyperlipidemia. 7. Gastroesophageal reflux disease. 8. Irritable bowel syndrome. 9. Osteoarthritis. PLAN: Plan is to continue the patient on Levaquin, breathing treatments and steroids. Resume his home medications and further recommendations to follow depending on the progress of the patient.
[2016-12-24] MEDS ORDERED: ACETAMINOPHEN TAB 325 MG TAB PO PRN (19:36)
[2016-12-24] MEDS: MONTELUKAST 10 MG TAB PO SCH (19:38)
[2016-12-24] MEDS: QUEtiapine 400 MG TAB PO SCH (19:38)
[2016-12-24] MEDS ORDERED: LORazepam 2 MG/ML SYRINGE IV PRN (19:49)
[2016-12-24] MEDS: HYDROcodone/APAP 5-325MG 1 EACH TAB PO PRN (20:16)
[2016-12-24] MEDS ORDERED: LEVOFLOXACIN 500 MG TAB PO SCH (21:00)
[2016-12-24 23:40] VITALS: RESP 18
[2016-12-25 06:31] LABS: Basophils % (A) 0 %; CH 30.6; CHCM 31.5; Eosinophils % (A) 1 %; HCT 38.3 % (39.0-53.0); HDW 2.56; HGB 12.2 gm/dL (13.0-17.5); Luc % (Auto) 2; Lymphocytes # (A) 1.8 k/uL (1.0-4.8); Lymphocytes % (A) 29 %; MCH 31.1 pg (25.0-35.0); MCHC 31.9 g/dL (31.0-37.0); MCV 97.5 fL (80.0-100.0); Mean Platelet Volume 8.2; Monocytes # (A) 0.3 k/uL (0-1.0); Monocytes % (A) 5 %; Neutrophils % (A) 63 %; RBC 3.92 m/uL (4.30-5.90); WBC 6.3 k/uL (3.8-10.6); WBC (Perox) 6.57
[2016-12-25 06:53] LABS: Anion Gap 8 mmol/L; Blood Urea Nitrogen 8 mg/dL (9-20); Carbon Dioxide 26 mmol/L (22-30); Chloride 110 mmol/L (98-107); Glucose 86 mg/dL (74-99); Non-African American GFR(MDRD) >60 (>60 ml/min/1.73 sqM); Potassium 4.1 mmol/L (3.5-5.1); Sodium 144 mmol/L (137-145)
[2016-12-25 07:38] VITALS: BP 139/76; TEMP 97.9
[2016-12-25] MEDS: IPRATROPIUM-ALBUTEROL 3 ML NEB INHALATION SCH ×2 (08:17→11:11)
[2016-12-25] MEDS: HYDROcodone/APAP 5-325MG 1 EACH TAB PO PRN (08:58)
[2016-12-25] MEDS: predniSONE 20 MG TAB PO SCH (08:59)
[2016-12-25] MEDS: LITHIUM CARBONATE 300 MG CAP PO SCH (08:59)
[2016-12-25] MEDS: LORazepam 1 MG TAB PO PRN (09:03)
[2016-12-25] MEDS: PANTOPRAZOLE 40 MG TABLET PO SCH (10:03)
[2016-12-25 11:13] VITALS: PULSE 92
[2016-12-25] MEDS ORDERED: LORazepam 1 MG TAB PO SCH (14:00)
--- NOTE | 2016-12-26 17:38 | DS ---
DATE OF ADMISSION: 12/23/2016 DATE OF DISCHARGE: 12/25/2016 HOSPITAL COURSE: Mr. Delgado is a 26-year-old I made a past medical history of GERD, hypertension, Asperger syndrome, anxiety bipolar disorder, depression, PTSD, coming the hospital with a chief complaint of difficulty in breathing. The patient was found to have fever at the time of admission was tachycardic and tachypneic. So the patient has been treated for acute asthma exacerbation secondary to community acquired pneumonia. The patient was started on steroids and given breathing treatments and started on Levaquin. Patient's symptoms did improve. The patient has long-standing history of psychiatric disorders including anxiety, Asperger syndrome and depression. His symptoms were under control during the hospital stay. The patient states that his breathing has improved and he does not have any fevers. On clinical exam today, patient's lungs are clear to auscultation. No wheezes are heard. So he is being discharged home in stable condition. DISCHARGE DIAGNOSES: 1. Community acquired pneumonia. 2. Acute exacerbation of asthma, secondary to #1. 3. History of PTSD. 4. History of anxiety/depression unspecified. 5. Asperger syndrome. 6. Hyperlipidemia. 7. Gastroesophageal reflux disease. 8. Irritable bowel syndrome. 9. Osteoarthritis. Patient's discharge medications: 1. Vitamin D3 1000 units p.o. daily. 2. Multivitamin 1 tablet p.o. daily. 3. Omeprazole 40 mg p.o. daily. 4. ( ) 55 mg p.o. q.h.s. 5. Ativan 1 mg p.o. 3 times a day. 6. [place] carbonate 300 mg p.o. 3 times a day. 7. Zofran 4 mg p.o. q.8 hours p.r.n. for nausea and vomiting. 8. Albuterol inhalation 2 puffs p.r.n. for shortness of breath. 9. Bentyl 20 mg p.o. 4 times a day p.r.n. for muscle spasms. 10. Breo Ellipta 200/25 mcg p.o. daily. 11. Singulair 10 mg p.o. q.h.s. 12. Quietepine 100 mg p.o. q.h.s. 13. Prednisone 40 mg p.o. for 3 days. 14. Levofloxacin 500 mg p.o. for 3 days. Follow-up: The patient is advised to follow up with his primary care physician, Dr. Ramsey in 2 to 3 days. Activity as tolerated. Diet: Normal diet. The patient is being discharged home in stable condition today.
== END 2016-12-25 12:12 | disposition home or self-care (01) ==
LOC: EC 18:29 → 3OBS 20:34
PROVIDERS: ADMIT Hospitalist; ATTEND Hospitalist
DX: J18.9 Pneumonia, unspecified organism (principal); J45.901 Unspecified asthma with (acute) exacerbation; F43.10 Post-traumatic stress disorder, unspecified; F41.9 Anxiety disorder, unspecified; F84.5 Asperger's syndrome; E78.5 Hyperlipidemia, unspecified; K21.9 Gastro-esophageal reflux disease without esophagitis; K58.9 Irritable bowel syndrome, unspecified; M19.90 Unspecified osteoarthritis, unspecified site; Z79.899 Other long term (current) drug therapy; F17.210 Nicotine dependence, cigarettes, uncomplicated; Z79.52 Long term (current) use of systemic steroids; Z88.8 Allergy status to other drugs, medicaments and biological substances; Z88.6 Allergy status to analgesic agent; Z91.040 Latex allergy status; F31.9 Bipolar disorder, unspecified; Z79.51 Long term (current) use of inhaled steroids
CPT/HCPCS: 96361 ×3; 96375 ×2; 99285 ×3; 96365; 36415; 94640 ×6; 94760; 93005; 80053; 80048; 83605; 83735; 85025 ×2; 87040; 87502; 71020; G0378 ×3; J2930; J1956; J7512 ×2

== ENCOUNTER 2016-12-26 18:51 | Emergency (ER) | payer MEDICARE, OTHER ==
[2016-12-26 19:10] VITALS: TEMP 98.4
[2016-12-26] MEDS ORDERED: HYDROmorphone 1 MG/ML 1 ML SYRINGE IM STA (20:02)
--- NOTE | 2016-12-26 20:09 | ED ---
General Adult HPI - General Chief complaint: Shortness of Breath Stated complaint: rt side pain, diff breathing Time Seen by Provider: 12/26/16 19:41 Source: patient, family, RN notes reviewed, old records reviewed Mode of arrival: wheelchair Limitations: no limitations - History of Present Illness Initial comments: Chief complaint and history of present illness: Patient was in emergency room twice in hospital once over the last 4 days. He saw's solution consultant today. The patient does have a history of asthma. He was placed on Pulmicort today. He was also complaining of a costochondritic-type pain in the right anterior lateral rib cage. Pain increases with coughing twisting turning and palpation. Conjunctiva control the pain by splinting it was just enough pressure from his 2 hands. No direct injury no fever. Currently on antibiotics. - Related Data Home Medications Medication Instructions Recorded Confirmed Fenofibrate [Lofibra] 54 mg PO HS 09/06/16 12/26/16 LORazepam [Ativan] 1 mg PO TID 09/06/16 12/26/16 [place] Carbonate 300 mg PO TID 09/06/16 12/26/16 Albuterol Inhaler [Ventolin Hfa 2 puff INHALATION RT-QID PRN 11/28/16 12/26/16 Inhaler] Dicyclomine [Bentyl] 20 mg PO QID PRN 11/28/16 12/26/16 Montelukast [Singulair] 10 mg PO HS 12/23/16 12/26/16 QUEtiapine [SEROquel] 800 mg PO HS 12/23/16 12/26/16 Budesonide/Formoterol Fumarate 2 puff INHALATION RT-BID 12/26/16 12/26/16 [Symbicort 160-4.5 Mcg Inhaler] Previous Rx's Medication Instructions Recorded Cholecalciferol [Vitamin D3] 1,000 unit PO DAILY #14 tab 01/28/16 Omeprazole [PriLOSEC] 40 mg PO DAILY #14 capsule. 01/28/16 Levofloxacin [Levaquin] 500 mg PO Q24H #3 tab 12/25/16 predniSONE 40 mg PO DAILY #3 tab 12/25/16 Acetaminophen-Codeine 300-30mg 1 tab PO Q6H PRN #20 tablet 12/26/16 [Tylenol #3] Allergies Allergy/AdvReac Type Severity Reaction Status Date / Time Latex, Natural Rubber Allergy Severe Rash/Hives Verified 12/26/16 19:10 bupropion HCl Allergy Anaphylaxis Verified 12/26/16 19:10 [From Wellbutrin] divalproex sodium Allergy Swelling Verified 12/26/16 19:10 [From Depakote] gabapentin [From Neurontin] Allergy Anaphylaxis Verified 12/26/16 19:10 lamotrigine [From Lamictal] Allergy Swelling Verified 12/26/16 19:10 NSAIDS (Non-Steroidal Allergy Rash/Hives Verified 12/26/16 19:10 Anti-Inflamma Review of Systems ROS Statement: Those systems with pertinent positive or pertinent negative responses have been documented in the HPI. Review of systems no headache or visual acuity changes no palpitations by does have chest pain which is reproducible with palpation coughing and breathing deep breathing. No rash noted though early shingles was discussed. No abdominal pain. No nausea vomiting or diarrhea. No neuro deficits. All systems are reviewed. Past medical problems significant for GERD, hyperlipidemia, osteoarthritis, sleep apnea for which she uses CPAP. And-year- old bowel syndrome. Surgeries include tonsils, adenoids, appendectomy.. Family history noncontributory ALLERGIES multiple as listed including nonsteroidals. Nonsmoker nondrinker. ROS Other: All systems not noted in ROS Statement are negative. Past Medical History Past Medical History: GERD/Reflux, Hyperlipidemia, Osteoarthritis (OA), Sleep Apnea/CPAP/BIPAP Additional Past Medical History / Comment(s): IRRITABLE BOWEL, PAST ANEMIA CHRONIC BACK PAIN/DDD LUMBAR REGION,KIDNEY STONE asperger's syndrome, chronic heat rash to R-arm, R-torso and back. History of Any Multi-Drug Resistant Organisms: None Reported Past Surgical History: Adenoidectomy, Appendectomy, Tonsillectomy Additional Past Surgical History / Comment(s): UPPP, VASECTOMY, SX FOR UNDESCENDED TESTICLE RT SIDE,EGD W/BX(NEG), GRAFTS ON GUMS YOUTH,LUMBAR FACET ARTHROPATHY LEFT L4,L5 SACRAL ALA MEDIAL BRACH RADIAL FREQUENCY ABLATION Past Anesthesia/Blood Transfusion Reactions: No Reported Reaction Additional Past Anesthesia/Blood Transfusion Reaction / Comment(s): CLAUSTERPHOBIA Past Psychological History: Anxiety, Bipolar, Depression, PTSD Additional Psychological History / Comment(s): PYSCHOSIS, AUTISM Smoking Status: Current every day smoker Past Alcohol Use History: Occasional Additional Past Alcohol Use History / Comment(s): Patient was a smoker for 7 years and quit one and half years ago. He states he quit chewing tobacco 1 year ago. He denies any medical marijuana, marijuana or street drug use. He denies any alcohol use. Patient is single and does not have any children. Past Drug Use History: None Reported - Past Family History Father Family Medical History: Diabetes Mellitus Additional Family Medical History / Comment(s): Patient's father is alive with no major medical problems. Mother Family Medical History: Fibromyalgia, Thyroid Disorder Additional Family Medical History / Comment(s): IBS Sister(s) Additional Family Medical History / Comment(s): depression General Exam - General Exam Comments Initial Comments: General: The patient is awake and alert, with moderate discomfort with deep breathing coughing twisting turning to the right lower lateral rib cage. Vital signs temp 98.4 pulse 150 her story rate 20 pulse ox I percent room air blood pressure 136/84. Eye: Pupils are equal, round and reactive to light, extra-ocular movements are intact ; there is normal conjunctiva bilaterally. No signs of icterus. Ears, nose, mouth and throat: There are moist mucous membranes and no oral lesions. Healed tympanic membranes from ear tubes. Neck: The neck is supple, there is no tenderness , no anterior cervical lymphadenopathy, no stiff neck. Cardiovascular: Tachycardic heart rate 1:15. No murmur, rub or gallop is appreciated. Respiratory: Lungs are clear to auscultation, respirations are non-labored, breath sounds are equal. No wheezes, stridor, rales, or rhonchi. Pain to the right anterolateral rib cage with palpation, coughing or deep breathing. He is able to splint the area and control of pain. Gastrointestinal: Soft, non-distended, non-tender abdomen without masses or organomegaly noted. There is no rebound or guarding present. No CVA tenderness. Bowel sounds are unremarkable. Back: There is no tenderness to palpation in the midline. There is no obvious deformity. No rashes noted. Musculoskeletal: Normal ROM, no tenderness, There is no pedal edema. There is no calf tenderness or swelling. Sensation intact. Neurological: No neuro deficits Skin: No rashes noted Limitations: no limitations Course Vital Signs 12/26/16 19:08 Temperature 98.4 F Pulse Rate 115 H Respiratory 20 Rate Blood Pressure 136/84 O2 Sat by Pulse 98 Oximetry Medical Decision Making - Medical Decision Making Medical decision-making. The patient has discomfort. Tylenol is not working. Nonsteroidals cannot be taken. He'll be placed on Tylenol threes which she has used in the past. We discussed risk of dependency. Patient will also received 1 pain shot emergency room prior to going his significant other will drive him home. Advised to follow-up with the family physician and his solution consultant or return emergency room as needed. Disposition Clinical Impression: Costochondritis, acute Narrative: Splint the area with her hands in order to decrease movement of the chest wall when coughing twisting turning or breathing. Use pain medication as directed continue with your inhalers and antibiotics. Follow-up with your family physician and solution consultant with emergency room as needed Disposition: HOME SELF-CARE Condition: Stable Instructions: Costochondritis (ED) Additional Instructions: Splint the area with your hand to control pain take Tylenol 3 for pain. Prescriptions: Acetaminophen-Codeine 300-30mg [Tylenol #3] 1 tab PO Q6H PRN #20 tablet PRN Reason: Pain Time of Disposition: 20:09
[2016-12-26 20:46] VITALS: BP 131/74; PULSE 78; RESP 16
== END 2016-12-26 20:45 | disposition home or self-care (01) ==
LOC: EC 18:51
DX: M94.0 Chondrocostal junction syndrome [Tietze] (principal); K21.9 Gastro-esophageal reflux disease without esophagitis; E78.5 Hyperlipidemia, unspecified; G47.30 Sleep apnea, unspecified; K58.9 Irritable bowel syndrome, unspecified; F31.9 Bipolar disorder, unspecified; F41.9 Anxiety disorder, unspecified; F43.10 Post-traumatic stress disorder, unspecified; F84.0 Autistic disorder; F29 Unspecified psychosis not due to a substance or known physiological condition; Z87.891 Personal history of nicotine dependence; Z79.51 Long term (current) use of inhaled steroids; Z79.899 Other long term (current) drug therapy; Z91.040 Latex allergy status; Z88.6 Allergy status to analgesic agent; Z88.8 Allergy status to other drugs, medicaments and biological substances
CPT/HCPCS: 99285; 96372; J1170; 71020; 99213

== ENCOUNTER 2017-01-10 18:22 | Emergency (ER) | payer MEDICARE, OTHER ==
--- NOTE | 2017-01-10 19:13 | ED ---
General Adult HPI - General Chief complaint: Urogenital Stated complaint: Testicule pain Time Seen by Provider: 01/10/17 19:00 Source: patient, RN notes reviewed Mode of arrival: ambulatory Limitations: no limitations - History of Present Illness Initial comments: Is a 26-year-old male presents to the emergency department complaining of left testicular pain. Patient states his been intermittent pain for the last 3 months. Patient states she had to have his right testicle tacked down when he was 1 years old. Patient states that the testicle seems to go up into the inguinal canal and it comes down and it causes excruciating pain today. Patient states it started before but never cause this much pain. Patient denies any dysuria hematuria urinary frequency. Patient states he does have a little bit of flank pain however. Patient denies any nausea vomiting or diarrhea. Patient states she's never followed up with this with his primary medical care doctor or urologist. Patient denies any fever or chills - Related Data Home Medications Medication Instructions Recorded Confirmed Fenofibrate [Lofibra] 54 mg PO HS 09/06/16 01/10/17 LORazepam [Ativan] 1 mg PO TID 09/06/16 01/10/17 Blackey Carbonate 300 mg PO TID 09/06/16 01/10/17 Albuterol Inhaler [Ventolin Hfa 2 puff INHALATION RT-QID PRN 11/28/16 01/10/17 Inhaler] Montelukast [Singulair] 10 mg PO HS 12/23/16 01/10/17 QUEtiapine [SEROquel] 800 mg PO HS 12/23/16 01/10/17 Budesonide/Formoterol Fumarate 2 puff INHALATION RT-BID 12/26/16 01/10/17 [Symbicort 160-4.5 Mcg Inhaler] Previous Rx's Medication Instructions Recorded Cholecalciferol [Vitamin D3] 1,000 unit PO DAILY #14 tab 01/28/16 Omeprazole [PriLOSEC] 40 mg PO DAILY #14 capsule. 01/28/16 Acetaminophen-Codeine 300-30mg 1 tab PO Q6H PRN #20 tablet 12/26/16 [Tylenol #3] Doxycycline [Vibramycin] 100 mg PO Q12HR 10 Days 01/10/17 Allergies Allergy/AdvReac Type Severity Reaction Status Date / Time Latex, Natural Rubber Allergy Severe Rash/Hives Verified 01/10/17 19:26 bupropion HCl Allergy Anaphylaxis Verified 01/10/17 19:26 [From Wellbutrin] divalproex sodium Allergy Swelling Verified 01/10/17 19:26 [From Depakote] gabapentin [From Neurontin] Allergy Anaphylaxis Verified 01/10/17 19:26 lamotrigine [From Lamictal] Allergy Swelling Verified 01/10/17 19:26 NSAIDS (Non-Steroidal Allergy Rash/Hives Verified 01/10/17 19:26 Anti-Inflamma Review of Systems ROS Statement: Those systems with pertinent positive or pertinent negative responses have been documented in the HPI. ROS Other: All systems not noted in ROS Statement are negative. Past Medical History Past Medical History: GERD/Reflux, Hyperlipidemia, Osteoarthritis (OA), Sleep Apnea/CPAP/BIPAP Additional Past Medical History / Comment(s): IRRITABLE BOWEL, PAST ANEMIA CHRONIC BACK PAIN/DDD LUMBAR REGION,KIDNEY STONE asperger's syndrome, chronic heat rash to R-arm, R-torso and back. History of Any Multi-Drug Resistant Organisms: None Reported Past Surgical History: Adenoidectomy, Appendectomy, Tonsillectomy Additional Past Surgical History / Comment(s): UPPP, VASECTOMY, SX FOR UNDESCENDED TESTICLE RT SIDE,EGD W/BX(NEG), GRAFTS ON GUMS YOUTH,LUMBAR FACET ARTHROPATHY LEFT L4,L5 SACRAL ALA MEDIAL BRACH RADIAL FREQUENCY ABLATION Past Anesthesia/Blood Transfusion Reactions: No Reported Reaction Additional Past Anesthesia/Blood Transfusion Reaction / Comment(s): CLAUSTERPHOBIA Past Psychological History: Anxiety, Bipolar, Depression, PTSD Additional Psychological History / Comment(s): PYSCHOSIS, AUTISM Smoking Status: Current every day smoker Past Alcohol Use History: Occasional Additional Past Alcohol Use History / Comment(s): Patient was a smoker for 7 years and quit one and half years ago. He states he quit chewing tobacco 1 year ago. He denies any medical marijuana, marijuana or street drug use. He denies any alcohol use. Patient is single and does not have any children. Past Drug Use History: None Reported - Past Family History Father Family Medical History: Diabetes Mellitus Additional Family Medical History / Comment(s): Patient's father is alive with no major medical problems. Mother Family Medical History: Fibromyalgia, Thyroid Disorder Additional Family Medical History / Comment(s): IBS Sister(s) Additional Family Medical History / Comment(s): depression General Exam - General Exam Comments Initial Comments: GENERAL Patient is well-developed and well-nourished. Patient is in mild distress. EYES Patient's pupils are equal and round. Extraocular motion is intact SKIN Unremarkable NEURO The patient is alert and oriented 3 PYSCH Patient has normal interpersonal interactions. MUSCULOSKELETAL All 4 times and full range of motion Genitalia On testicle exam there was no masses on any of the testicles there was some tenderness in the left testicle did not feel a prominent epididymis. Patient had no redness of the scrotum no lesions were noted Limitations: no limitations Course Vital Signs 01/10/17 18:56 Temperature 97.4 F L Pulse Rate 95 Respiratory 20 Rate Blood Pressure 127/82 O2 Sat by Pulse 100 Oximetry Medical Decision Making - Medical Decision Making Ultrasound shows no torsion and a possible epididymitis. - Lab Data Lab Results 01/10/17 Range/Units 19:26 Urine Color Yellow Urine Appearance Clear (Clear) Urine pH 7.5 (5.0-8.0) Ur Specific [place] 1.022 (1.001-1.035) Urine Protein 1+ H (Negative) Urine Glucose (UA) Negative (Negative) Urine Ketones Negative (Negative) Urine Blood Negative (Negative) Urine Nitrate Negative (Negative) Urine Bilirubin Negative (Negative) Urine Urobilinogen 6.0 (<2.0) mg/dL Ur Leukocyte Esterase Negative (Negative) Urine RBC 2 (0-5) /hpf Urine WBC 9 H (0-5) /hpf Urine WBC Clumps Rare H (None) /hpf Ur Squamous Epith Cells 5 H (0-4) /hpf Amorphous Sediment Rare H (None) /hpf Hyaline Casts 4 H (0-2) /lpf Urine Mucus Occasional H (None) /hpf Disposition Clinical Impression: Epididymitis Disposition: HOME SELF-CARE Condition: Good Instructions: Epididymitis (ED) Prescriptions: Doxycycline [Vibramycin] 100 mg PO Q12HR 10 Days Time of Disposition: 20:45
[2017-01-10 19:36] LABS: Amorphous Sediment,Urine Rare /hpf; Appearance,Urine Clear (Clear); Bilirubin,Urine Negative (Negative); Glucose,Urine (UA) Negative (Negative); Ketones,Urine Negative (Negative); Leukocyte Esterase,Urine Negative (Negative); Mucus,Urine Occasional /hpf; Nitrite,Urine Negative (Negative); PH, Urine 7.5 (5.0-8.0); Particle Count 6192; Protein,Urine 1+ (Negative); RBC,Urine 2 /hpf (0-5); Specific Gravity,Urine 1.022 (1.001-1.035); Squamous Epithelial Cell,Urine 5 /hpf (0-4); UA Billing (MACRO vs. MICRO) MICRO; WBC,Urine 9 /hpf (0-5)
--- NOTE | 2017-01-10 20:08 | US ---
EXAMINATION TYPE: US scrotum with doppler. Grayscale and color Doppler Duplex imaging performed of t billy scrotum. DATE OF EXAM: 01/10/2017 7:52 PM COMPARISON: NONE CLINICAL HISTORY: Pain in left testicle. EXAM MEASUREMENTS: TESTICLES: Right Testicle: 3.7 x 2.5 x 2.6 cm Left Testicle: 5.5 x 3.2 x 3.5 cm EPIDIDYMIS HEAD: Right Epididymis: 1.0 cm Left Epididymis: 1.6 cm, Appears heterogeneous Doppler performed to assess for testicular vascularity; good bilateral color flow and waveforms are s een. There is no evidence of testicular torsion. Presence of hydroceles: No Presence of varicoceles: Yes, small on the left TECHNOLOGIST IMPRESSION: Within the left testicle in the area of the mediastinum appears heterogeneo us, possible tubular ectasia of the rete testis vs other etiology. The left testicle also appears hyp ervascular compared to the right IMPRESSION: No testicular torsion or mass. No free fluid. Left epididymis is slightly larger than the right that is suggestive of epididymitis.
[2017-01-10] MEDS ORDERED: cefTRIAXone 1,000 MG VIAL (IM USE) IM STA (20:45)
[2017-01-10] MEDS ORDERED: MORPHINE SULFATE 10 MG/ML SYRINGE IM STA (20:51)
[2017-01-10 21:09] VITALS: BP 132/71; PULSE 89; RESP 18; TEMP 98.1
== END 2017-01-10 21:08 | disposition home or self-care (01) ==
LOC: EC 18:22
DX: N45.1 Epididymitis (principal); G47.30 Sleep apnea, unspecified; K21.9 Gastro-esophageal reflux disease without esophagitis; F84.5 Asperger's syndrome; E78.5 Hyperlipidemia, unspecified; F41.9 Anxiety disorder, unspecified; F31.9 Bipolar disorder, unspecified; F17.200 Nicotine dependence, unspecified, uncomplicated; Z87.442 Personal history of urinary calculi; Z79.899 Other long term (current) drug therapy; Z88.8 Allergy status to other drugs, medicaments and biological substances; Z91.040 Latex allergy status
CPT/HCPCS: 99284; 96372 ×2; 87591; 87491; 81001; 87086; 93975; 76870; J2270; J0696

== ENCOUNTER 2017-01-15 14:50 | Emergency (ER) | payer MEDICARE, OTHER ==
[2017-01-15 15:04] VITALS: BP 142/87; PULSE 83; RESP 17; TEMP 98.6
--- NOTE | 2017-01-15 16:18 | XR ---
EXAMINATION TYPE: XR knee complete LT DATE OF EXAM: 01/15/2017 3:58 PM CLINICAL HISTORY: EXAMINATION TYPE: XR knee complete LT DATE OF EXAM: 01/15/2017 3:58 PM CLINICAL HISTORY: pain TECHNIQUE: Three views of the left knee are obtained. COMPARISON: None. FINDINGS: There is no acute fracture/dislocation. The tri-compartment joint spaces appear within no rmal limits. The overlying soft tissue appears unremarkable. IMPRESSION: There is no acute fracture or dislocation
--- NOTE | 2017-01-15 16:43 | ED ---
Lower Extremity Injury HPI - General Chief Complaint: Extremity Injury, Lower Stated Complaint: Knee Pain Time Seen by Provider: 01/15/17 15:37 Source: patient Mode of arrival: wheelchair Limitations: physical limitation - History of Present Illness Initial Comments: Patient is a 26-year-old white male presenting to the emergency department with complaints of left knee pain. Patient states that he went to the refrigerator to get some food at 3 AM last night and when he bent down and he felt a pop. Patient complains of a tightness and sharp pain particularly to his lateral and posterior left knee and feels like his knee is unstable when he's walking. Pain is exacerbated with walking. Patient denies previous injury or trauma to left lower extremity. Patient is able to ambulate in the hospital and at the scene of injury. Patient denies chills, fevers, nausea, vomiting, shortness of breath, chest pain, or abdominal pain. Patient denies numbness or tingling. Place: home Severity: moderate Severity scale (1-10): 8 Improves With: immobilization, rest Worsens With: weight bearing, movement, palpation Context: other Associated Symptoms: snap/pop sensation, ambulatory Treatments Prior to Arrival: other (Tylenol.) - Related Data Home Medications Medication Instructions Recorded Confirmed Fenofibrate [Lofibra] 54 mg PO HS 09/06/16 01/10/17 LORazepam [Ativan] 1 mg PO TID 09/06/16 01/10/17 [place]cl[place] Carbonate 300 mg PO TID 09/06/16 01/10/17 Albuterol Inhaler [Ventolin Hfa 2 puff INHALATION RT-QID PRN 11/28/16 01/10/17 Inhaler] Montelukast [Singulair] 10 mg PO HS 12/23/16 01/10/17 QUEtiapine [SEROquel] 800 mg PO HS 12/23/16 01/10/17 Budesonide/Formoterol Fumarate 2 puff INHALATION RT-BID 12/26/16 01/10/17 [Symbicort 160-4.5 Mcg Inhaler] Previous Rx's Medication Instructions Recorded Cholecalciferol [Vitamin D3] 1,000 unit PO DAILY #14 tab 01/28/16 Omeprazole [PriLOSEC] 40 mg PO DAILY #14 capsule. 01/28/16 Acetaminophen-Codeine 300-30mg 1 tab PO Q6H PRN #20 tablet 12/26/16 [Tylenol #3] Doxycycline [Vibramycin] 100 mg PO Q12HR 10 Days 01/10/17 Allergies Allergy/AdvReac Type Severity Reaction Status Date / Time Latex, Natural Rubber Allergy Severe Rash/Hives Verified 01/15/17 15:01 bupropion HCl Allergy Anaphylaxis Verified 01/15/17 15:01 [From Wellbutrin] divalproex sodium Allergy Swelling Verified 01/15/17 15:01 [From Depakote] gabapentin [From Neurontin] Allergy Anaphylaxis Verified 01/15/17 15:01 lamotrigine [From Lamictal] Allergy Swelling Verified 01/15/17 15:01 NSAIDS (Non-Steroidal Allergy Rash/Hives Verified 01/15/17 15:01 Anti-Inflamma Review of Systems ROS Statement: Those systems with pertinent positive or pertinent negative responses have been documented in the HPI. ROS Other: All systems not noted in ROS Statement are negative. Past Medical History Past Medical History: GERD/Reflux, Hyperlipidemia, Osteoarthritis (OA), Sleep Apnea/CPAP/BIPAP Additional Past Medical History / Comment(s): IRRITABLE BOWEL, PAST ANEMIA CHRONIC BACK PAIN/DDD LUMBAR REGION,KIDNEY STONE asperger's syndrome, chronic heat rash to R-arm, R-torso and back. History of Any Multi-Drug Resistant Organisms: None Reported Past Surgical History: Adenoidectomy, Appendectomy, Tonsillectomy Additional Past Surgical History / Comment(s): UPPP, VASECTOMY, SX FOR UNDESCENDED TESTICLE RT SIDE,EGD W/BX(NEG), GRAFTS ON GUMS YOUTH,LUMBAR FACET ARTHROPATHY LEFT L4,L5 SACRAL ALA MEDIAL BRACH RADIAL FREQUENCY ABLATION Past Anesthesia/Blood Transfusion Reactions: No Reported Reaction Additional Past Anesthesia/Blood Transfusion Reaction / Comment(s): CLAUSTERPHOBIA Past Psychological History: Anxiety, Bipolar, Depression, PTSD Additional Psychological History / Comment(s): PYSCHOSIS, AUTISM Smoking Status: Current every day smoker Past Alcohol Use History: Occasional Additional Past Alcohol Use History / Comment(s): Patient was a smoker for 7 years and quit one and half years ago. He states he quit chewing tobacco 1 year ago. He denies any medical marijuana, marijuana or street drug use. He denies any alcohol use. Patient is single and does not have any children. Past Drug Use History: None Reported - Past Family History Father Family Medical History: Diabetes Mellitus Additional Family Medical History / Comment(s): Patient's father is alive with no major medical problems. Mother Family Medical History: Fibromyalgia, Thyroid Disorder Additional Family Medical History / Comment(s): IBS Sister(s) Additional Family Medical History / Comment(s): depression General Exam Limitations: physical limitation Course Vital Signs 01/15/17 15:01 Temperature 98.6 F Pulse Rate 83 Respiratory 17 Rate Blood Pressure 142/87 O2 Sat by Pulse 100 Oximetry Medical Decision Making - Medical Decision Making Left knee sprain. X-ray of left knee negative for acute fracture or dislocation. Knee immobilizer applied. Patient provided with prescription for crutches. Patient instructed to follow-up with orthopedic surgeon for management. Patient agrees with treatment plan. Discharge instructions and return parameters reviewed. Patient offered pain medication in the emergency department but refused. - Radiology Data Radiology results: report reviewed Left knee x-ray: No acute fracture or dislocation. Tricompartment joint spaces appear within normal limits. Overlying soft tissues appear unremarkable. Disposition Clinical Impression: Sprain of left knee Disposition: HOME SELF-CARE Condition: Good Instructions: Knee Sprain (ED) Additional Instructions: Avoid activity that causes pain. Use knee immobilizer and crutches for stability. Apply ice 20 minutes 4 times a day usually for 2-3 days. Elevate leg as much as possible. Continue Tylenol as needed for pain. Follow-up with orthopedic surgeon as directed. Please return to the emergency department if symptoms do not improve or get worse. Referrals: None,Stated [Primary Care Provider] - 1-2 days Nikolay Nieves DO [Doctor of Osteopathic Medicine] - 1-2 days Time of Disposition: 16:43
== END 2017-01-15 16:45 | disposition home or self-care (01) ==
LOC: EC 14:50
DX: S83.92XA Sprain of unspecified site of left knee, initial encounter (principal); X58.XXXA Exposure to other specified factors, initial encounter; K21.9 Gastro-esophageal reflux disease without esophagitis; E78.5 Hyperlipidemia, unspecified; Z87.442 Personal history of urinary calculi; F41.9 Anxiety disorder, unspecified; F32.9 Major depressive disorder, single episode, unspecified; F43.10 Post-traumatic stress disorder, unspecified; Z79.899 Other long term (current) drug therapy; Z79.51 Long term (current) use of inhaled steroids; F17.200 Nicotine dependence, unspecified, uncomplicated; Z88.6 Allergy status to analgesic agent; Z91.040 Latex allergy status; Z88.8 Allergy status to other drugs, medicaments and biological substances
CPT/HCPCS: 73562; 99283; L1830

== ENCOUNTER 2017-01-24 19:09 | Emergency (ER) | payer MEDICARE, OTHER ==
[2017-01-24 19:15] VITALS: BP 139/77; PULSE 94; RESP 18; TEMP 99.8
[2017-01-24] MEDS ORDERED: ORPHENADRINE 30 MG/ML 2 ML VIAL IM STA (19:27)
[2017-01-24] MEDS ORDERED: methylPREDNISolone SOD SUCCI 125 MG/2 ML VIAL IM STA (19:30)
[2017-01-24] MEDS ORDERED: ACETAMINOPHEN TAB 500 MG TAB PO STA (19:30)
--- NOTE | 2017-01-24 19:30 | ED ---
Back Pain HPI - General Chief Complaint: Back Pain/Injury Stated Complaint: Back Pain Time Seen by Provider: 01/24/17 19:16 Source: patient, RN notes reviewed Limitations: no limitations - History of Present Illness Initial Comments: 26-year-old male presents emergency department for evaluation of his chronic back pain. Patient has chronic back pain and he's been having this chronic back pain for many years. Patient states today his back pain for absolutely on the ground which normally helps but did not help today. Patient states that since that her back and goes down to the lumbar region. Patient states additional radiation in the legs. Patient states he has no loss of bladder function or saddle anesthesia. Patient states she was concerned due to the continuing pains without that he should be evaluated. Patient states that he is not currently having any other symptoms at this time.Patient denies any recent fever, chills, shortness of breath, chest pain, abdominal pain, nausea vomiting, numbness or tingling, dysuria or hematuria, constipation or diarrhea, headaches or visual changes, or any other current symptoms. - Related Data Home Medications Medication Instructions Recorded Confirmed Fenofibrate [Lofibra] 54 mg PO HS 09/06/16 01/24/17 LORazepam [Ativan] 1 mg PO TID 09/06/16 01/24/17 Ecru Carbonate 300 mg PO TID 09/06/16 01/24/17 Albuterol Inhaler [Ventolin Hfa 2 puff INHALATION RT-QID PRN 11/28/16 01/24/17 Inhaler] Montelukast [Singulair] 10 mg PO HS 12/23/16 01/24/17 QUEtiapine [SEROquel] 800 mg PO HS 12/23/16 01/24/17 Budesonide/Formoterol Fumarate 2 puff INHALATION RT-BID 12/26/16 01/24/17 [Symbicort 160-4.5 Mcg Inhaler] Previous Rx's Medication Instructions Recorded Cholecalciferol [Vitamin D3] 1,000 unit PO DAILY #14 tab 01/28/16 Omeprazole [PriLOSEC] 40 mg PO DAILY #14 capsule. 01/28/16 Acetaminophen-Codeine 300-30mg 1 tab PO Q6H PRN #20 tablet 12/26/16 [Tylenol #3] Doxycycline [Vibramycin] 100 mg PO Q12HR 10 Days 01/10/17 predniSONE 50 mg PO DAILY #5 tab 01/24/17 Allergies Allergy/AdvReac Type Severity Reaction Status Date / Time Latex, Natural Rubber Allergy Severe Rash/Hives Verified 01/15/17 15:01 bupropion HCl Allergy Anaphylaxis Verified 01/15/17 15:01 [From Wellbutrin] divalproex sodium Allergy Swelling Verified 01/15/17 15:01 [From Depakote] gabapentin [From Neurontin] Allergy Anaphylaxis Verified 01/15/17 15:01 lamotrigine [From Lamictal] Allergy Swelling Verified 01/15/17 15:01 NSAIDS (Non-Steroidal Allergy Rash/Hives Verified 01/15/17 15:01 Anti-Inflamma Review of Systems ROS Statement: Those systems with pertinent positive or pertinent negative responses have been documented in the HPI. ROS Other: All systems not noted in ROS Statement are negative. Past Medical History Past Medical History: GERD/Reflux, Hyperlipidemia, Osteoarthritis (OA), Sleep Apnea/CPAP/BIPAP Additional Past Medical History / Comment(s): IRRITABLE BOWEL, PAST ANEMIA CHRONIC BACK PAIN/DDD LUMBAR REGION,KIDNEY STONE asperger's syndrome, chronic heat rash to R-arm, R-torso and back. History of Any Multi-Drug Resistant Organisms: None Reported Past Surgical History: Adenoidectomy, Appendectomy, Tonsillectomy Additional Past Surgical History / Comment(s): UPPP, VASECTOMY, SX FOR UNDESCENDED TESTICLE RT SIDE,EGD W/BX(NEG), GRAFTS ON GUMS YOUTH,LUMBAR FACET ARTHROPATHY LEFT L4,L5 SACRAL ALA MEDIAL BRACH RADIAL FREQUENCY ABLATION Past Anesthesia/Blood Transfusion Reactions: No Reported Reaction Additional Past Anesthesia/Blood Transfusion Reaction / Comment(s): CLAUSTERPHOBIA Past Psychological History: Anxiety, Bipolar, Depression, PTSD Additional Psychological History / Comment(s): PYSCHOSIS, AUTISM Smoking Status: Current every day smoker Past Alcohol Use History: Occasional Additional Past Alcohol Use History / Comment(s): Patient was a smoker for 7 years and quit one and half years ago. He states he quit chewing tobacco 1 year ago. He denies any medical marijuana, marijuana or street drug use. He denies any alcohol use. Patient is single and does not have any children. Past Drug Use History: None Reported - Past Family History Father Family Medical History: Diabetes Mellitus Additional Family Medical History / Comment(s): Patient's father is alive with no major medical problems. Mother Family Medical History: Fibromyalgia, Thyroid Disorder Additional Family Medical History / Comment(s): IBS Sister(s) Additional Family Medical History / Comment(s): depression General Exam - General Exam Comments Initial Comments: General: The patient is awake and alert, in no distress, and does not appear acutely ill. Eye: Pupils are equal, round. Ears, nose, mouth and throat: There are moist mucous membranes. Neck: The neck is supple, there is no tenderness. Cardiovascular: There is a regular rate and rhythm. No murmur, rub or gallop is appreciated. Respiratory: Lungs are clear to auscultation, respirations are non-labored, breath sounds are equal. No wheezes, stridor, rales, or rhonchi. Gastrointestinal: Soft, non-distended, non-tender abdomen without masses or organomegaly noted. There is no rebound or guarding present. No CVA tenderness. Bowel sounds are unremarkable. Back: There is no tenderness to palpation in the midline. Bilateral straight leg raise. There is no obvious deformity. No rashes noted. Musculoskeletal: Normal ROM, no tenderness, There is no pedal edema. There is no calf tenderness or swelling. Sensation intact. Pulses equal bilaterally 2+. Neurological: CN II-XII intact, There are no obvious motor or sensory deficits. Coordination appears grossly intact. Speech is normal. Skin: Skin is warm and dry and no rashes or lesions are noted. Psychiatric: Cooperative, appropriate mood & affect, normal judgment. Limitations: no limitations Course Vital Signs 01/24/17 19:11 Temperature 99.8 F H Pulse Rate 94 Respiratory 18 Rate Blood Pressure 139/77 O2 Sat by Pulse 100 Oximetry Medical Decision Making - Medical Decision Making 26-year-old male presents emergency Department chief complaint for chronic back pain. This time patient will be placed on steroids for home. Due to the fact that he does have a positive straight leg raise. He received Norflex and financial here. We discussed return parameters and follow-up. We did discuss signs and symptoms to return the emergency department. We discussed all the patient's family's questions. He stated he understood the plan. EVIDENCE. He' ll be discharged. Disposition Clinical Impression: Chronic back pain Disposition: HOME SELF-CARE Condition: Stable Instructions: Chronic Back Pain (ED) Additional Instructions: Please use medication as discussed. Please follow up with family doctor if symptoms have not improved over the next two days. Please return to the emergency room if your symptoms increase or worsen or for any other concerns. Prescriptions: predniSONE 50 mg PO DAILY #5 tab Referrals: None,Stated [Primary Care Provider] - 1-2 days Chapin Isabel MD [STAFF PHYSICIAN] - 1-2 days Time of Disposition: 19:31
== END 2017-01-24 19:45 | disposition home or self-care (01) ==
LOC: EC 19:09
DX: M54.5 Low back pain (principal); G89.29 Other chronic pain; G47.30 Sleep apnea, unspecified; K21.9 Gastro-esophageal reflux disease without esophagitis; E78.5 Hyperlipidemia, unspecified; F31.9 Bipolar disorder, unspecified; F41.9 Anxiety disorder, unspecified; F84.5 Asperger's syndrome; F17.200 Nicotine dependence, unspecified, uncomplicated; Z88.8 Allergy status to other drugs, medicaments and biological substances; Z91.040 Latex allergy status; Z99.89 Dependence on other enabling machines and devices; Z79.51 Long term (current) use of inhaled steroids; Z87.442 Personal history of urinary calculi
CPT/HCPCS: 99283; 96372 ×2; J2360; J2930

== ENCOUNTER 2017-01-31 15:08 | Emergency (ER) | payer MEDICARE, OTHER ==
[2017-01-31 15:16] VITALS: RESP 18
[2017-01-31] MEDS ORDERED: SODIUM CHLORIDE 0.9% 500 ML IV STA (15:44)
[2017-01-31] MEDS ORDERED: SODIUM CHLORIDE 0.9% 1,000 ML IV STA (15:44)
--- NOTE | 2017-01-31 15:58 | ED ---
General Adult HPI - General Chief complaint: Abdominal Pain Stated complaint: Left side pain Time Seen by Provider: 01/31/17 15:38 Source: patient, RN notes reviewed, old records reviewed Mode of arrival: ambulatory Limitations: no limitations - History of Present Illness Initial comments: This is a 18-year-old male the ER for evaluation multiple nonspecific symptoms. Some bipolar disease on lithium. Multiple erythematous depressants. Patient denies drugs or upper patient coming in with left-sided facial numbness as well as left leg and arm numbness. Patient denies any recent fevers or illnesses, no recent headaches or trauma. Patient was seen by his family doctor earlier today and sent to ER for evaluation of possible CVA. Patient states the left side of his cheek and the left side of his face does feel numb. No pain. Patient also feels weak in his arm and leg. Patient never has prior symptoms before, he does have high cholesterol and his father did have a stroke at a young age - Related Data Home Medications Medication Instructions Recorded Confirmed Fenofibrate [Lofibra] 54 mg PO HS 09/06/16 01/31/17 LORazepam [Ativan] 1 mg PO TID 09/06/16 01/31/17 [place] Carbonate 300 mg PO TID 09/06/16 01/31/17 Albuterol Inhaler [Ventolin Hfa 2 puff INHALATION RT-QID PRN 11/28/16 01/31/17 Inhaler] Montelukast [Singulair] 10 mg PO HS 12/23/16 01/31/17 QUEtiapine [SEROquel] 800 mg PO HS 12/23/16 01/31/17 Budesonide/Formoterol Fumarate 2 puff INHALATION RT-BID 12/26/16 01/31/17 [Symbicort 160-4.5 Mcg Inhaler] Previous Rx's Medication Instructions Recorded Cholecalciferol [Vitamin D3] 1,000 unit PO DAILY #14 tab 01/28/16 Omeprazole [PriLOSEC] 40 mg PO DAILY #14 capsule. 01/28/16 Allergies Allergy/AdvReac Type Severity Reaction Status Date / Time Latex, Natural Rubber Allergy Severe Rash/Hives Verified 01/31/17 16:11 bupropion HCl Allergy Anaphylaxis Verified 01/31/17 16:11 [From Wellbutrin] divalproex sodium Allergy Swelling Verified 01/31/17 16:11 [From Depakote] gabapentin [From Neurontin] Allergy Anaphylaxis Verified 01/31/17 16:11 lamotrigine [From Lamictal] Allergy Swelling Verified 01/31/17 16:11 NSAIDS (Non-Steroidal Allergy Rash/Hives Verified 01/31/17 16:11 Anti-Inflamma Review of Systems ROS Statement: Those systems with pertinent positive or pertinent negative responses have been documented in the HPI. ROS Other: All systems not noted in ROS Statement are negative. Past Medical History Past Medical History: GERD/Reflux, Hyperlipidemia, Osteoarthritis (OA), Sleep Apnea/CPAP/BIPAP Additional Past Medical History / Comment(s): IRRITABLE BOWEL, PAST ANEMIA CHRONIC BACK PAIN/DDD LUMBAR REGION,KIDNEY STONE asperger's syndrome, chronic heat rash to R-arm, R-torso and back. History of Any Multi-Drug Resistant Organisms: None Reported Past Surgical History: Adenoidectomy, Appendectomy, Tonsillectomy Additional Past Surgical History / Comment(s): UPPP, VASECTOMY, SX FOR UNDESCENDED TESTICLE RT SIDE,EGD W/BX(NEG), GRAFTS ON GUMS YOUTH,LUMBAR FACET ARTHROPATHY LEFT L4,L5 SACRAL ALA MEDIAL BRACH RADIAL FREQUENCY ABLATION Past Anesthesia/Blood Transfusion Reactions: No Reported Reaction Additional Past Anesthesia/Blood Transfusion Reaction / Comment(s): CLAUSTERPHOBIA Past Psychological History: Anxiety, Bipolar, Depression, PTSD Additional Psychological History / Comment(s): PYSCHOSIS, AUTISM Smoking Status: Current every day smoker Past Alcohol Use History: Occasional Additional Past Alcohol Use History / Comment(s): Patient was a smoker for 7 years and quit one and half years ago. He states he quit chewing tobacco 1 year ago. He denies any medical marijuana, marijuana or street drug use. He denies any alcohol use. Patient is single and does not have any children. Past Drug Use History: None Reported - Past Family History Father Family Medical History: Diabetes Mellitus Additional Family Medical History / Comment(s): Patient's father is alive with no major medical problems. Mother Family Medical History: Fibromyalgia, Thyroid Disorder Additional Family Medical History / Comment(s): IBS Sister(s) Additional Family Medical History / Comment(s): depression General Exam - General Exam Comments Initial Comments: NIH of 0 Limitations: no limitations General appearance: alert, in no apparent distress Head exam: Present: atraumatic, normocephalic, normal inspection Eye exam: Present: normal appearance, PERRL, EOMI. Absent: scleral icterus, conjunctival injection, periorbital swelling ENT exam: Present: normal exam, mucous membranes moist Neck exam: Present: normal inspection. Absent: tenderness, meningismus, lymphadenopathy Respiratory exam: Present: normal lung sounds bilaterally. Absent: respiratory distress, wheezes, rales, rhonchi, stridor Cardiovascular Exam: Present: regular rate, normal rhythm, normal heart sounds. Absent: systolic murmur, diastolic murmur, rubs, gallop, clicks GI/Abdominal exam: Present: soft, normal bowel sounds. Absent: distended, tenderness, guarding, rebound, rigid Extremities exam: Present: normal inspection, full ROM, normal capillary refill. Absent: tenderness, pedal edema, joint swelling, calf tenderness Back exam: Present: normal inspection Neurological exam: Present: alert, oriented X3, CN II-XII intact Psychiatric exam: Present: normal affect, normal mood Skin exam: Present: warm, dry, intact, normal color. Absent: rash Course Vital Signs 01/31/17 15:13 Temperature 98.1 F Pulse Rate 121 H Respiratory 18 Rate Blood Pressure 145/90 O2 Sat by Pulse 100 Oximetry EKG Findings - EKG Comments: EKG Findings:: EKG shows normal sinus rhythm rate of 97 and a QRS 146, QRS 122, QTc 464 Medical Decision Making - Medical Decision Making 26 male to ER for evaluation. This patient is here today for evaluation of left -sided numbness in his face. Patient does appear to have sinus infection, CT brain is negative lab work is normal lithium level is normal. Patient has no profound and found neurological deficit on exam. Patient will be discharged home - Lab Data Result diagrams: 01/31/17 16:03 01/31/17 16:03 Lab Results 01/31/17 01/31/17 01/31/17 Range/Units 16:03 16:03 16:03 WBC 8.0 (3.8-10.6) k/uL RBC 4.74 (4.30-5.90) m/uL Hgb 14.8 (13.0-17.5) gm/dL Hct 45.1 (39.0-53.0) % MCV 95.1 (80.0-100.0) fL MCH 31.3 (25.0-35.0) pg MCHC 32.9 (31.0-37.0) g/dL RDW 13.5 (11.5-15.5) % Plt Count 261 (150-450) k/uL Neutrophils % 70 % Lymphocytes % 20 % Monocytes % 5 % Eosinophils % 2 % Basophils % 0 % Neutrophils # 5.6 (1.3-7.7) k/uL Lymphocytes # 1.6 (1.0-4.8) k/uL Monocytes # 0.4 (0-1.0) k/uL Eosinophils # 0.2 (0-0.7) k/uL Basophils # 0.0 (0-0.2) k/uL PT (9.0-12.0) sec INR (<1.1) APTT (22.0-30.0) sec Sodium 141 (137-145) mmol/L Potassium 4.7 (3.5-5.1) mmol/L Chloride 106 (98-107) mmol/L Carbon Dioxide 27 (22-30) mmol/L Anion Gap 8 mmol/L BUN 19 (9-20) mg/dL Creatinine 1.20 (0.66-1.25) mg/dL Est GFR (MDRD) Af Amer >60 (>60 ml/min/1.73 sqM) Est GFR (MDRD) Non-Af >60 (>60 ml/min/1.73 sqM) Glucose 87 (74-99) mg/dL Calcium 10.2 (8.4-10.2) mg/dL Phosphorus 3.7 (2.5-4.5) mg/dL Magnesium 2.2 (1.6-2.3) mg/dL Total Bilirubin 0.4 (0.2-1.3) mg/dL AST 23 (17-59) U/L ALT 32 (21-72) U/L Alkaline Phosphatase 43 (38-126) U/L Total Creatine Kinase 89 (55-170) U/L Total Protein 7.4 (6.3-8.2) g/dL Albumin 4.6 (3.5-5.0) g/dL Urine Color Urine Appearance (Clear) Urine pH (5.0-8.0) Ur Specific [place] (1.001-1.035) Urine Protein (Negative) Urine Glucose (UA) (Negative) Urine Ketones (Negative) Urine Blood (Negative) Urine Nitrate (Negative) Urine Bilirubin (Negative) Urine Urobilinogen (<2.0) mg/dL Ur Leukocyte Esterase (Negative) Urine Opiates Screen (NotDetected) Ur Oxycodone Screen (NotDetected) Urine Methadone Screen (NotDetected) Ur Propoxyphene Screen (NotDetected) Acetaminophen <10.0 ug/mL Ur Barbiturates Screen (NotDetected) U Tricyclic Antidepress (NotDetected) Ur Phencyclidine Scrn (NotDetected) Ur Amphetamines Screen (NotDetected) U Methamphetamines Scrn (NotDetected) U Benzodiazepines Scrn (NotDetected) [place] mmol/L Urine Cocaine Screen (NotDetected) U Marijuana (THC) Screen (NotDetected) 01/31/17 01/31/17 01/31/17 Range/Units 16:03 16:03 16:03 WBC (3.8-10.6) k/uL RBC (4.30-5.90) m/uL Hgb (13.0-17.5) gm/dL Hct (39.0-53.0) % MCV (80.0-100.0) fL MCH (25.0-35.0) pg MCHC (31.0-37.0) g/dL RDW (11.5-15.5) % Plt Count (150-450) k/uL Neutrophils % % Lymphocytes % % Monocytes % % Eosinophils % % Basophils % % Neutrophils # (1.3-7.7) k/uL Lymphocytes # (1.0-4.8) k/uL Monocytes # (0-1.0) k/uL Eosinophils # (0-0.7) k/uL Basophils # (0-0.2) k/uL PT 10.5 (9.0-12.0) sec INR 1.0 (<1.1) APTT 23.3 (22.0-30.0) sec Sodium (137-145) mmol/L Potassium (3.5-5.1) mmol/L Chloride (98-107) mmol/L Carbon Dioxide (22-30) mmol/L Anion Gap mmol/L BUN (9-20) mg/dL Creatinine (0.66-1.25) mg/dL Est GFR (MDRD) Af Amer (>60 ml/min/1.73 sqM) Est GFR (MDRD) Non-Af (>60 ml/min/1.73 sqM) Glucose (74-99) mg/dL Calcium (8.4-10.2) mg/dL Phosphorus (2.5-4.5) mg/dL Magnesium (1.6-2.3) mg/dL Total Bilirubin (0.2-1.3) mg/dL AST (17-59) U/L ALT (21-72) U/L Alkaline Phosphatase (38-126) U/L Total Creatine Kinase (55-170) U/L Total Protein (6.3-8.2) g/dL Albumin (3.5-5.0) g/dL Urine Color Yellow Urine Appearance Clear (Clear) Urine pH 6.5 (5.0-8.0) Ur Specific [place] 1.011 (1.001-1.035) Urine Protein Negative (Negative) Urine Glucose (UA) Negative (Negative) Urine Ketones Negative (Negative) Urine Blood Negative (Negative) Urine Nitrate Negative (Negative) Urine Bilirubin Negative (Negative) Urine Urobilinogen <2.0 (<2.0) mg/dL Ur Leukocyte Esterase Negative (Negative) Urine Opiates Screen Not Detected (NotDetected) Ur Oxycodone Screen Not Detected (NotDetected) Urine Methadone Screen Not Detected (NotDetected) Ur Propoxyphene Screen Not Detected (NotDetected) Acetaminophen ug/mL Ur Barbiturates Screen Not Detected (NotDetected) U Tricyclic Antidepress Detected H (NotDetected) Ur Phencyclidine Scrn Not Detected (NotDetected) Ur Amphetamines Screen Not Detected (NotDetected) U Methamphetamines Scrn Not Detected (NotDetected) U Benzodiazepines Scrn Detected H (NotDetected) [place] 0.7 mmol/L Urine Cocaine Screen Not Detected (NotDetected) U Marijuana (THC) Screen Not Detected (NotDetected) - Radiology Data Radiology results: report reviewed (CT brain is negative for acute disease), image reviewed Disposition Clinical Impression: Bipolar disorder, Acute sinusitis Disposition: HOME SELF-CARE Condition: Good Instructions: Sinusitis (ED) Referrals: Nonstaff,Physician [Primary Care Provider] - 1-2 days
[2017-01-31 16:22] LABS: Appearance,Urine Clear (Clear); Basophils % (A) 0 %; Bilirubin,Urine Negative (Negative); CH 30.9; CHCM 32.7; Eosinophils # (A) 0.2 k/uL (0-0.7); Eosinophils % (A) 2 %; Glucose,Urine (UA) Negative (Negative); HCT 45.1 % (39.0-53.0); HDW 2.61; HGB 14.8 gm/dL (13.0-17.5); Ketones,Urine Negative (Negative); Leukocyte Esterase,Urine Negative (Negative); Luc # (Auto) 0.18; Luc % (Auto) 2; Lymphocytes # (A) 1.6 k/uL (1.0-4.8); Lymphocytes % (A) 20 %; MCH 31.3 pg (25.0-35.0); MCHC 32.9 g/dL (31.0-37.0); MCV 95.1 fL (80.0-100.0); Mean Platelet Volume 8.4; Monocytes # (A) 0.4 k/uL (0-1.0); Monocytes % (A) 5 %; Neutrophils # (A) 5.6 k/uL (1.3-7.7); Neutrophils % (A) 70 %; Nitrite,Urine Negative (Negative); PH, Urine 6.5 (5.0-8.0); Protein,Urine Negative (Negative); RBC 4.74 m/uL (4.30-5.90); RDW 13.5 % (11.5-15.5); Specific Gravity,Urine 1.011 (1.001-1.035); UA Billing (MACRO vs. MICRO) CHEM; Urobilinogen,Urine <2.0 mg/dL (<2.0); WBC (Perox) 7.88
--- NOTE | 2017-01-31 16:28 | CT ---
EXAMINATION TYPE: CT brain wo con DATE OF EXAM: 01/31/2017 4:24 PM COMPARISON: NONE INDICATION: Left sided numbness and weakness. DLP: 1180.00 mGycm, Automated exposure control for dose reduction was used. CONTRAST: None CT of the brain is performed utilizing 3 mm thick sections through the posterior fossa and 3 mm thick sections through the remaining calvarium. Study is performed within 24 hours of arrival to the hosp ital. No abnormal hyperdensity is present to suggest an acute intracranial hemorrhage. No mass lesion is evident. No acute infarcts are evident. Ventricles and sulci are appropriate for the patient age. Mucosal thickening is through right ethmoid air cells. Some mucosal thickening is within the inferior right maxillary sinus. Mastoid air cells are clear. IMPRESSIONS: 1. No acute intracranial process. 2. Mild mucosal thickening within right ethmoid air cells.
[2017-01-31 16:30] LABS: Partial Thromboplastin Time 23.3 sec (22.0-30.0); Prothrombin Time 10.5 sec (9.0-12.0)
[2017-01-31 16:32] LABS: ALT 32 U/L (21-72); AST 23 U/L (17-59); Acetaminophen <10.0 ug/mL; Alkaline Phosphatase 43 U/L (38-126); Anion Gap 8 mmol/L; Blood Urea Nitrogen 19 mg/dL (9-20); Calcium 10.2 mg/dL (8.4-10.2); Carbon Dioxide 27 mmol/L (22-30); Chloride 106 mmol/L (98-107); Glucose 87 mg/dL (74-99); Magnesium 2.2 mg/dL (1.6-2.3); Non-African American GFR(MDRD) >60 (>60 ml/min/1.73 sqM); Phosphorous 3.7 mg/dL (2.5-4.5); Potassium 4.7 mmol/L (3.5-5.1); Sodium 141 mmol/L (137-145); Total Bilirubin 0.4 mg/dL (0.2-1.3); Total Protein 7.4 g/dL (6.3-8.2)
[2017-01-31 16:44] LABS: Creatine Kinase 89 U/L (55-170)
[2017-01-31 16:56] LABS: Creatine Kinase MB 0.9 ng/mL (0.0-2.4); Troponin I <0.012 ng/mL (0.000-0.034)
[2017-01-31 17:00] VITALS: BP 118/78; PULSE 90; TEMP 98.3
== END 2017-01-31 17:05 | disposition home or self-care (01) ==
LOC: EC 15:08
DX: J01.90 Acute sinusitis, unspecified (principal); F31.9 Bipolar disorder, unspecified; R29.898 Other symptoms and signs involving the musculoskeletal system; R20.0 Anesthesia of skin; K21.9 Gastro-esophageal reflux disease without esophagitis; K58.9 Irritable bowel syndrome, unspecified; E78.5 Hyperlipidemia, unspecified; M19.90 Unspecified osteoarthritis, unspecified site; F43.10 Post-traumatic stress disorder, unspecified; F41.9 Anxiety disorder, unspecified; Z87.891 Personal history of nicotine dependence; Z79.899 Other long term (current) drug therapy; Z91.040 Latex allergy status; Z88.8 Allergy status to other drugs, medicaments and biological substances; Z88.6 Allergy status to analgesic agent; Z90.49 Acquired absence of other specified parts of digestive tract; Z90.89 Acquired absence of other organs
CPT/HCPCS: 36415; 70450; 80053; 80178; 80306; 81003; 82550; 82553; 83520; 83735; 84100; 84484; 85025; 85610; 85730; 87086; 93005; 96360; 99285

== ENCOUNTER → 2017-03-02 | Outpatient (CLI) | payer MEDICARE, OTHER ==
[2017-03-02 11:26] LABS: Blood Urea Nitrogen 12 mg/dL (9-20); Non-African American GFR(MDRD) >60 (>60 ml/min/1.73 sqM)
[2017-03-02 11:41] LABS: Lithium 0.9 mmol/L
== END | disposition home or self-care (01) ==
LOC: LABWHC1 09:33
PROVIDERS: ATTEND Psychiatry & Neurology Psychiatry
DX: F33.9 Major depressive disorder, recurrent, unspecified (principal)
CPT/HCPCS: 36415; 80178; 82565; 84520

== ENCOUNTER 2017-03-05 04:27 | Emergency (ER) | payer MEDICARE, OTHER ==
[2017-03-05 05:10] LABS: Basophils % (A) 0 %; CH 30.8; CHCM 33.2; Eosinophils # (A) 0.3 k/uL (0-0.7); Eosinophils % (A) 5 %; HCT 42.3 % (39.0-53.0); HDW 2.64; HGB 14.2 gm/dL (13.0-17.5); Luc # (Auto) 0.16; Luc % (Auto) 3; Lymphocytes # (A) 2.1 k/uL (1.0-4.8); Lymphocytes % (A) 35 %; MCH 31.4 pg (25.0-35.0); MCHC 33.7 g/dL (31.0-37.0); MCV 93.3 fL (80.0-100.0); Mean Platelet Volume 7.7; Monocytes # (A) 0.4 k/uL (0-1.0); Monocytes % (A) 7 %; Neutrophils # (A) 3.1 k/uL (1.3-7.7); Neutrophils % (A) 50 %; RBC 4.53 m/uL (4.30-5.90); RDW 13.4 % (11.5-15.5); WBC 6.1 k/uL (3.8-10.6); WBC (Perox) 5.99
[2017-03-05 05:13] LABS: Appearance,Urine Clear (Clear); Bilirubin,Urine Negative (Negative); Glucose,Urine (UA) Negative (Negative); Ketones,Urine Negative (Negative); Leukocyte Esterase,Urine Negative (Negative); Nitrite,Urine Negative (Negative); Protein,Urine Trace (Negative); Specific Gravity,Urine 1.015 (1.001-1.035); UA Billing (MACRO vs. MICRO) CHEM
[2017-03-05 05:24] LABS: ALT 30 U/L (21-72); AST 19 U/L (17-59); Alkaline Phosphatase 38 U/L (38-126); Anion Gap 12 mmol/L; Blood Urea Nitrogen 10 mg/dL (9-20); Calcium 9.9 mg/dL (8.4-10.2); Carbon Dioxide 23 mmol/L (22-30); Chloride 108 mmol/L (98-107); Glucose 142 mg/dL (74-99); Non-African American GFR(MDRD) >60 (>60 ml/min/1.73 sqM); Potassium 4.2 mmol/L (3.5-5.1); Sodium 143 mmol/L (137-145); Total Bilirubin 0.5 mg/dL (0.2-1.3)
[2017-03-05 05:47] LABS: Creatine Kinase 107 U/L (55-170)
[2017-03-05 05:59] LABS: Creatine Kinase MB 0.9 ng/mL (0.0-2.4); Troponin I <0.012 ng/mL (0.000-0.034)
--- NOTE | 2017-03-05 07:31 | ED ---
GI Bleed HPI - General Chief complaint: GI Bleed Stated complaint: Bloody Diarrhea Time Seen by Provider: 03/05/17 04:52 Source: patient, family Mode of arrival: ambulatory Limitations: no limitations - Related Data Home Medications Medication Instructions Recorded Confirmed Fenofibrate [Lofibra] 54 mg PO HS 09/06/16 03/05/17 LORazepam [Ativan] 1 mg PO TID 09/06/16 03/05/17 [place] Carbonate 300 mg PO TID 09/06/16 03/05/17 Albuterol Inhaler [Ventolin Hfa 2 puff INHALATION RT-QID PRN 11/28/16 03/05/17 Inhaler] Montelukast [Singulair] 10 mg PO HS 12/23/16 03/05/17 QUEtiapine [SEROquel] 800 mg PO HS 12/23/16 03/05/17 Budesonide/Formoterol Fumarate 2 puff INHALATION RT-BID 12/26/16 03/05/17 [Symbicort 160-4.5 Mcg Inhaler] Mirtazapine [Remeron] 15 mg PO HS 03/05/17 03/05/17 Previous Rx's Medication Instructions Recorded Cholecalciferol [Vitamin D3] 1,000 unit PO DAILY #14 tab 01/28/16 Omeprazole [PriLOSEC] 40 mg PO DAILY #14 capsule. 01/28/16 Amoxicillin 500 mg PO Q8H #30 capsule 01/31/17 Ciprofloxacin HCl [Cipro] 500 mg PO Q12HR #14 tablet 03/05/17 metroNIDAZOLE [Flagyl] 500 mg PO TID #21 tab 03/05/17 Allergies Allergy/AdvReac Type Severity Reaction Status Date / Time Latex, Natural Rubber Allergy Severe Rash/Hives Verified 03/05/17 04:44 bupropion HCl Allergy Anaphylaxis Verified 03/05/17 04:44 [From Wellbutrin] divalproex sodium Allergy Swelling Verified 03/05/17 04:44 [From Depakote] gabapentin [From Neurontin] Allergy Anaphylaxis Verified 03/05/17 04:44 lamotrigine [From Lamictal] Allergy Swelling Verified 03/05/17 04:44 NSAIDS (Non-Steroidal Allergy Rash/Hives Verified 03/05/17 04:44 Anti-Inflamma Review of Systems ROS Statement: Those systems with pertinent positive or pertinent negative responses have been documented in the HPI. ROS Other: All systems not noted in ROS Statement are negative. Past Medical History Past Medical History: GERD/Reflux, Hyperlipidemia, Osteoarthritis (OA), Sleep Apnea/CPAP/BIPAP Additional Past Medical History / Comment(s): IRRITABLE BOWEL, PAST ANEMIA CHRONIC BACK PAIN/DDD LUMBAR REGION,KIDNEY STONE asperger's syndrome, chronic heat rash to R-arm, R-torso and back. History of Any Multi-Drug Resistant Organisms: None Reported Past Surgical History: Adenoidectomy, Appendectomy, Tonsillectomy Additional Past Surgical History / Comment(s): UPPP, VASECTOMY, SX FOR UNDESCENDED TESTICLE RT SIDE,EGD W/BX(NEG), GRAFTS ON GUMS YOUTH,LUMBAR FACET ARTHROPATHY LEFT L4,L5 SACRAL ALA MEDIAL BRACH RADIAL FREQUENCY ABLATION Past Anesthesia/Blood Transfusion Reactions: No Reported Reaction Additional Past Anesthesia/Blood Transfusion Reaction / Comment(s): CLAUSTERPHOBIA Past Psychological History: Anxiety, Bipolar, Depression, PTSD Additional Psychological History / Comment(s): PYSCHOSIS, AUTISM Smoking Status: Current every day smoker Past Alcohol Use History: Occasional Additional Past Alcohol Use History / Comment(s): Patient was a smoker for 7 years and quit one and half years ago. He states he quit chewing tobacco 1 year ago. He denies any medical marijuana, marijuana or street drug use. He denies any alcohol use. Patient is single and does not have any children. Past Drug Use History: None Reported - Past Family History Father Family Medical History: Diabetes Mellitus Additional Family Medical History / Comment(s): Patient's father is alive with no major medical problems. Mother Family Medical History: Fibromyalgia, Thyroid Disorder Additional Family Medical History / Comment(s): IBS Sister(s) Additional Family Medical History / Comment(s): depression General Exam Limitations: no limitations Course Vital Signs 03/05/17 03/05/17 03/05/17 04:40 06:35 07:00 Temperature 98 F 97.9 F Pulse Rate 111 H 85 80 Respiratory 20 18 16 Rate Blood Pressure 133/81 104/58 O2 Sat by Pulse 98 97 97 Oximetry Medical Decision Making - Lab Data Result diagrams: 03/05/17 04:52 03/05/17 04:52 Lab Results 03/05/17 03/05/17 03/05/17 Range/Units 04:12 04:12 04:50 WBC (3.8-10.6) k/uL RBC (4.30-5.90) m/uL Hgb (13.0-17.5) gm/dL Hct (39.0-53.0) % MCV (80.0-100.0) fL MCH (25.0-35.0) pg MCHC (31.0-37.0) g/dL RDW (11.5-15.5) % Plt Count (150-450) k/uL Neutrophils % % Lymphocytes % % Monocytes % % Eosinophils % % Basophils % % Neutrophils # (1.3-7.7) k/uL Lymphocytes # (1.0-4.8) k/uL Monocytes # (0-1.0) k/uL Eosinophils # (0-0.7) k/uL Basophils # (0-0.2) k/uL APTT (22.0-30.0) sec Sodium (137-145) mmol/L Potassium (3.5-5.1) mmol/L Chloride (98-107) mmol/L Carbon Dioxide (22-30) mmol/L Anion Gap mmol/L BUN (9-20) mg/dL Creatinine (0.66-1.25) mg/dL Est GFR (MDRD) Af Amer (>60 ml/min/1.73 sqM) Est GFR (MDRD) Non-Af (>60 ml/min/1.73 sqM) Glucose (74-99) mg/dL Plasma Lactic Acid [place] 1.2 (0.7-2.0) mmol/L Calcium (8.4-10.2) mg/dL Total Bilirubin (0.2-1.3) mg/dL AST (17-59) U/L ALT (21-72) U/L Alkaline Phosphatase (38-126) U/L Total Creatine Kinase (55-170) U/L CK-MB (CK-2) (0.0-2.4) ng/mL CK-MB (CK-2) Rel Index Troponin I (0.000-0.034) ng/mL Total Protein (6.3-8.2) g/dL Albumin (3.5-5.0) g/dL Urine Color Urine Appearance (Clear) Urine pH (5.0-8.0) Ur Specific [place] (1.001-1.035) Urine Protein (Negative) Urine Glucose (UA) (Negative) Urine Ketones (Negative) Urine Blood (Negative) Urine Nitrite (Negative) Urine Bilirubin (Negative) Urine Urobilinogen (<2.0) mg/dL Ur Leukocyte Esterase (Negative) Stool Occult Blood Negative (Negative) C. difficile (EIA) Intrp Negative (Negative) Blood Type Blood Type Confirm Blood Type Recheck Antibody Screen Spec Expiration Date 03/05/17 03/05/17 03/05/17 Range/Units 04:52 04:52 04:52 WBC 6.1 (3.8-10.6) k/uL RBC 4.53 (4.30-5.90) m/uL Hgb 14.2 (13.0-17.5) gm/dL Hct 42.3 (39.0-53.0) % MCV 93.3 (80.0-100.0) fL MCH 31.4 (25.0-35.0) pg MCHC 33.7 (31.0-37.0) g/dL RDW 13.4 (11.5-15.5) % Plt Count 257 (150-450) k/uL Neutrophils % 50 % Lymphocytes % 35 % Monocytes % 7 % Eosinophils % 5 % Basophils % 0 % Neutrophils # 3.1 (1.3-7.7) k/uL Lymphocytes # 2.1 (1.0-4.8) k/uL Monocytes # 0.4 (0-1.0) k/uL Eosinophils # 0.3 (0-0.7) k/uL Basophils # 0.0 (0-0.2) k/uL APTT (22.0-30.0) sec Sodium 143 (137-145) mmol/L Potassium 4.2 (3.5-5.1) mmol/L Chloride 108 H (98-107) mmol/L Carbon Dioxide 23 (22-30) mmol/L Anion Gap 12 mmol/L BUN 10 (9-20) mg/dL Creatinine 1.10 (0.66-1.25) mg/dL Est GFR (MDRD) Af Amer >60 (>60 ml/min/1.73 sqM) Est GFR (MDRD) Non-Af >60 (>60 ml/min/1.73 sqM) Glucose 142 H (74-99) mg/dL Plasma Lactic Acid [place] (0.7-2.0) mmol/L Calcium 9.9 (8.4-10.2) mg/dL Total Bilirubin 0.5 (0.2-1.3) mg/dL AST 19 (17-59) U/L ALT 30 (21-72) U/L Alkaline Phosphatase 38 (38-126) U/L Total Creatine Kinase 107 (55-170) U/L CK-MB (CK-2) 0.9 (0.0-2.4) ng/mL CK-MB (CK-2) Rel Index 0.8 Troponin I <0.012 (0.000-0.034) ng/mL Total Protein 7.0 (6.3-8.2) g/dL Albumin 4.5 (3.5-5.0) g/dL Urine Color Urine Appearance (Clear) Urine pH (5.0-8.0) Ur Specific [place] (1.001-1.035) Urine Protein (Negative) Urine Glucose (UA) (Negative) Urine Ketones (Negative) Urine Blood (Negative) Urine Nitrite (Negative) Urine Bilirubin (Negative) Urine Urobilinogen (<2.0) mg/dL Ur Leukocyte Esterase (Negative) Stool Occult Blood (Negative) C. difficile (EIA) Intrp (Negative) Blood Type Blood Type Confirm Blood Type Recheck Antibody Screen Spec Expiration Date 03/05/17 03/05/17 03/05/17 Range/Units 04:52 04:52 04:52 WBC (3.8-10.6) k/uL RBC (4.30-5.90) m/uL Hgb (13.0-17.5) gm/dL Hct (39.0-53.0) % MCV (80.0-100.0) fL MCH (25.0-35.0) pg MCHC (31.0-37.0) g/dL RDW (11.5-15.5) % Plt Count (150-450) k/uL Neutrophils % % Lymphocytes % % Monocytes % % Eosinophils % % Basophils % % Neutrophils # (1.3-7.7) k/uL Lymphocytes # (1.0-4.8) k/uL Monocytes # (0-1.0) k/uL Eosinophils # (0-0.7) k/uL Basophils # (0-0.2) k/uL APTT 22.5 (22.0-30.0) sec Sodium (137-145) mmol/L Potassium (3.5-5.1) mmol/L Chloride (98-107) mmol/L Carbon Dioxide (22-30) mmol/L Anion Gap mmol/L BUN (9-20) mg/dL Creatinine (0.66-1.25) mg/dL Est GFR (MDRD) Af Amer (>60 ml/min/1.73 sqM) Est GFR (MDRD) Non-Af (>60 ml/min/1.73 sqM) Glucose (74-99) mg/dL Plasma Lactic Acid [place] (0.7-2.0) mmol/L Calcium (8.4-10.2) mg/dL Total Bilirubin (0.2-1.3) mg/dL AST (17-59) U/L ALT (21-72) U/L Alkaline Phosphatase (38-126) U/L Total Creatine Kinase (55-170) U/L CK-MB (CK-2) (0.0-2.4) ng/mL CK-MB (CK-2) Rel Index Troponin I (0.000-0.034) ng/mL Total Protein (6.3-8.2) g/dL Albumin (3.5-5.0) g/dL Urine Color Yellow Urine Appearance Clear (Clear) Urine pH 6.0 (5.0-8.0) Ur Specific [place] 1.015 (1.001-1.035) Urine Protein Trace H (Negative) Urine Glucose (UA) Negative (Negative) Urine Ketones Negative (Negative) Urine Blood Negative (Negative) Urine Nitrite Negative (Negative) Urine Bilirubin Negative (Negative) Urine Urobilinogen 2.0 (<2.0) mg/dL Ur Leukocyte Esterase Negative (Negative) Stool Occult Blood (Negative) C. difficile (EIA) Intrp (Negative) Blood Type A Positive Blood Type Confirm Blood Type Recheck CABO Indicated Antibody Screen NEGATIVE Spec Expiration Date 03/08/2017 - 235103/05/17 Range/Units 05:52 WBC (3.8-10.6) k/uL RBC (4.30-5.90) m/uL Hgb (13.0-17.5) gm/dL Hct (39.0-53.0) % MCV (80.0-100.0) fL MCH (25.0-35.0) pg MCHC (31.0-37.0) g/dL RDW (11.5-15.5) % Plt Count (150-450) k/uL Neutrophils % % Lymphocytes % % Monocytes % % Eosinophils % % Basophils % % Neutrophils # (1.3-7.7) k/uL Lymphocytes # (1.0-4.8) k/uL Monocytes # (0-1.0) k/uL Eosinophils # (0-0.7) k/uL Basophils # (0-0.2) k/uL APTT (22.0-30.0) sec Sodium (137-145) mmol/L Potassium (3.5-5.1) mmol/L Chloride (98-107) mmol/L Carbon Dioxide (22-30) mmol/L Anion Gap mmol/L BUN (9-20) mg/dL Creatinine (0.66-1.25) mg/dL Est GFR (MDRD) Af Amer (>60 ml/min/1.73 sqM) Est GFR (MDRD) Non-Af (>60 ml/min/1.73 sqM) Glucose (74-99) mg/dL Plasma Lactic Acid [place] (0.7-2.0) mmol/L Calcium (8.4-10.2) mg/dL Total Bilirubin (0.2-1.3) mg/dL AST (17-59) U/L ALT (21-72) U/L Alkaline Phosphatase (38-126) U/L Total Creatine Kinase (55-170) U/L CK-MB (CK-2) (0.0-2.4) ng/mL CK-MB (CK-2) Rel Index Troponin I (0.000-0.034) ng/mL Total Protein (6.3-8.2) g/dL Albumin (3.5-5.0) g/dL Urine Color Urine Appearance (Clear) Urine pH (5.0-8.0) Ur Specific [place] (1.001-1.035) Urine Protein (Negative) Urine Glucose (UA) (Negative) Urine Ketones (Negative) Urine Blood (Negative) Urine Nitrite (Negative) Urine Bilirubin (Negative) Urine Urobilinogen (<2.0) mg/dL Ur Leukocyte Esterase (Negative) Stool Occult Blood (Negative) C. difficile (EIA) Intrp (Negative) Blood Type Blood Type Confirm A Positive Blood Type Recheck Antibody Screen Spec Expiration Date Disposition Clinical Impression: Diarrhea, Abdominal pain Disposition: HOME SELF-CARE Condition: Fair Instructions: Abdominal Pain (ED) Prescriptions: Ciprofloxacin HCl [Cipro] 500 mg PO Q12HR #14 tablet metroNIDAZOLE [Flagyl] 500 mg PO TID #21 tab Referrals: Janna Sanderson MD [Primary Care Provider] - 1-2 days
[2017-03-05 08:13] VITALS: BP 106/70; PULSE 89; RESP 20; TEMP 97.1
== END 2017-03-05 08:13 | disposition home or self-care (01) ==
LOC: EC 04:27
DX: R19.7 Diarrhea, unspecified (principal); R10.9 Unspecified abdominal pain; E78.5 Hyperlipidemia, unspecified; F84.5 Asperger's syndrome; F41.9 Anxiety disorder, unspecified; F31.9 Bipolar disorder, unspecified; Z88.6 Allergy status to analgesic agent; Z88.8 Allergy status to other drugs, medicaments and biological substances; Z91.040 Latex allergy status; Z79.51 Long term (current) use of inhaled steroids; Z79.899 Other long term (current) drug therapy; Z87.891 Personal history of nicotine dependence
CPT/HCPCS: 36415; 80053; 81003; 82272; 82550; 82553; 83605; 84484; 85025; 85730; 86850; 86900; 86901; 87324; 99284

== ENCOUNTER → 2017-03-16 | Outpatient (CLI) | payer MEDICARE, OTHER ==
--- NOTE | 2017-03-16 11:36 | FL ---
Small bowel follow-through INDICATION: Periumbilical pain, blood in stool, diarrhea, right lower quadrant pain TECHNIQUE: Single contrast technique is followed through the small bowel loops. Fluoroscopic imaging is performed over the terminal ileum. Jejunal fold pattern appears normal. Ileal fold pattern appears normal. No suspicious dilated loops o f bowel are evident. Transit time to the colon is 180 minutes. Real-time observation of small bowel loops was performed. Loops of bowel appear freely mobile. Perist alsis is evident. Terminal ileum is normal. IMPRESSIONS: 1. Transit time to the colon is somewhat slow at 3 hours. 2. Suspicious small bowel abnormality or terminal ileum abnormality is not identified.
== END | disposition home or self-care (01) ==
LOC: RADFLMAIN 07:31
PROVIDERS: ATTEND Physician Assistant
DX: R19.7 Diarrhea, unspecified (principal)
CPT/HCPCS: 74250

== ENCOUNTER 2017-04-02 19:23 | Emergency (ER) | payer MEDICARE, OTHER ==
[2017-04-02] MEDS ORDERED: FAMOTIDINE 20 MG/2 ML VIAL IV STA (19:45)
[2017-04-02] MEDS ORDERED: methylPREDNISolone SOD SUCCI 125 MG/2 ML VIAL IV STA (19:45)
[2017-04-02] MEDS ORDERED: SODIUM CHLORIDE 0.9% 1,000 ML IV ONE (19:49)
[2017-04-02 20:07] LABS: Basophils % (A) 0 %; CH 30.9; CHCM 32.3; Eosinophils # (A) 0.4 k/uL (0-0.7); Eosinophils % (A) 5 %; HCT 43.9 % (39.0-53.0); HDW 2.44; HGB 14.1 gm/dL (13.0-17.5); Luc # (Auto) 0.12; Luc % (Auto) 1; Lymphocytes # (A) 2.4 k/uL (1.0-4.8); Lymphocytes % (A) 26 %; MCH 30.9 pg (25.0-35.0); MCHC 32.2 g/dL (31.0-37.0); Mean Platelet Volume 7.6; Monocytes # (A) 0.5 k/uL (0-1.0); Monocytes % (A) 5 %; Neutrophils # (A) 5.6 k/uL (1.3-7.7); Neutrophils % (A) 62 %; RBC 4.58 m/uL (4.30-5.90); RDW 13.9 % (11.5-15.5); WBC 9.1 k/uL (3.8-10.6); WBC (Perox) 9.14
[2017-04-02] MEDS ORDERED: MORPHINE SULFATE 4 MG/ML SYRINGE IVP STA (20:23)
[2017-04-02 20:59] VITALS: BP 137/85; PULSE 86; RESP 18; TEMP 99.2
--- NOTE | 2017-04-02 21:12 | ED ---
Allergic Reaction HPI - General Chief complaint: Allergic Reaction Stated complaint: Allergic Reaction Source: patient Mode of arrival: ambulatory Limitations: no limitations - History of Present Illness Initial Comments: 26-year-old male with past medical history of medication-induced Hardy-Georgi syndrome presented for evaluation of ALLERGIC reaction. He states that he was started on baclofen for fibromyalgia yesterday and had his first dose yesterday as well. He took a second dose today and couple hours later he started breaking out in a rash and feeling very warm. He denies any shortness of breath or wheezing and does not feel as though his tongue or throat are swelling or closing off. He states that he has had multiple admissions in the past for Hardy-Georgi syndrome where he has broken out in a similar rash which eventually became blistering requiring admission and treatment for a burn. He took 50 mg of Benadryl prior to coming to the ED and states that it only provided minor improvement. He denies any chest pain, shortness of breath although he does feel very hot generally. - Related Data Home Medications Medication Instructions Recorded Confirmed Fenofibrate [Lofibra] 54 mg PO HS 09/06/16 04/02/17 LORazepam [Ativan] 1 mg PO TID PRN 09/06/16 04/02/17 [place] Carbonate 300 mg PO TID 09/06/16 04/02/17 Albuterol Inhaler [Ventolin Hfa 2 puff INHALATION RT-QID PRN 11/28/16 04/02/17 Inhaler] Montelukast [Singulair] 10 mg PO HS 12/23/16 04/02/17 QUEtiapine [SEROquel] 800 mg PO HS 12/23/16 04/02/17 Budesonide/Formoterol Fumarate 2 puff INHALATION RT-DAILY 12/26/16 04/02/17 [Symbicort 160-4.5 Mcg Inhaler] Mirtazapine [Remeron] 15 mg PO HS 03/05/17 04/02/17 Baclofen [Lioresal] 10 mg PO BID 04/02/17 04/02/17 Cholecalciferol [Vitamin D3] 5,000 unit PO HS 04/02/17 04/02/17 Previous Rx's Medication Instructions Recorded Omeprazole [PriLOSEC] 40 mg PO DAILY #14 capsule. 01/28/16 Allergies Allergy/AdvReac Type Severity Reaction Status Date / Time Latex, Natural Rubber Allergy Severe Rash/Hives Verified 04/02/17 19:32 baclofen Allergy Rash/Hives Verified 04/02/17 19:33 bupropion HCl Allergy Anaphylaxis Verified 04/02/17 19:32 [From Wellbutrin] divalproex sodium Allergy Swelling Verified 04/02/17 19:32 [From Depakote] gabapentin [From Neurontin] Allergy Anaphylaxis Verified 04/02/17 19:32 lamotrigine [From Lamictal] Allergy Swelling Verified 04/02/17 19:32 NSAIDS (Non-Steroidal Allergy Rash/Hives Verified 04/02/17 19:32 Anti-Inflamma Review of Systems ROS Statement: Those systems with pertinent positive or pertinent negative responses have been documented in the HPI. ROS Other: All systems not noted in ROS Statement are negative. Constitutional: Reports: fever. Denies: chills, weakness Eyes: Denies: eye pain, eye discharge, vision change ENT: Denies: ear pain, throat pain, dental pain, hearing loss Respiratory: Denies: cough, dyspnea, wheezes, hemoptysis, stridor Cardiovascular: Denies: chest pain, palpitations, dyspnea on exertion, orthopnea Endocrine: Denies: fatigue, polydipsia, polyuria Gastrointestinal: Reports: nausea. Denies: abdominal pain, vomiting, diarrhea, constipation, hematemesis Genitourinary: Denies: urgency, dysuria Musculoskeletal: Denies: back pain, arthralgia, myalgia Skin: Reports: rash. Denies: lesions, change in color, change in hair/nails Neurological: Denies: headache, weakness Psychiatric: Denies: anxiety, depression Hematological/Lymphatic: Denies: easy bleeding, easy bruising Past Medical History Past Medical History: GERD/Reflux, Hyperlipidemia, Osteoarthritis (OA), Sleep Apnea/CPAP/BIPAP Additional Past Medical History / Comment(s): IRRITABLE BOWEL, PAST ANEMIA CHRONIC BACK PAIN/DDD LUMBAR REGION,KIDNEY STONE asperger's syndrome, chronic heat rash to R-arm, R-torso and back. History of Any Multi-Drug Resistant Organisms: None Reported Past Surgical History: Adenoidectomy, Appendectomy, Tonsillectomy Additional Past Surgical History / Comment(s): UPPP, VASECTOMY, SX FOR UNDESCENDED TESTICLE RT SIDE,EGD W/BX(NEG), GRAFTS ON GUMS YOUTH,LUMBAR FACET ARTHROPATHY LEFT L4,L5 SACRAL ALA MEDIAL BRACH RADIAL FREQUENCY ABLATION Past Anesthesia/Blood Transfusion Reactions: No Reported Reaction Additional Past Anesthesia/Blood Transfusion Reaction / Comment(s): CLAUSTERPHOBIA Past Psychological History: Anxiety, Bipolar, Depression, PTSD Additional Psychological History / Comment(s): PYSCHOSIS, AUTISM Smoking Status: Current every day smoker Past Alcohol Use History: Occasional Additional Past Alcohol Use History / Comment(s): Patient was a smoker for 7 years and quit one and half years ago. He states he quit chewing tobacco 1 year ago. He denies any medical marijuana, marijuana or street drug use. He denies any alcohol use. Patient is single and does not have any children. Past Drug Use History: None Reported - Past Family History Father Family Medical History: Diabetes Mellitus Additional Family Medical History / Comment(s): Patient's father is alive with no major medical problems. Mother Family Medical History: Fibromyalgia, Thyroid Disorder Additional Family Medical History / Comment(s): IBS Sister(s) Additional Family Medical History / Comment(s): depression General Exam Limitations: no limitations General appearance: alert, in distress Head exam: Present: atraumatic, normocephalic, normal inspection Eye exam: Present: normal appearance, PERRL, EOMI. Absent: scleral icterus, conjunctival injection, periorbital swelling ENT exam: Present: normal exam, mucous membranes moist Neck exam: Present: normal inspection. Absent: tenderness, meningismus, lymphadenopathy Respiratory exam: Present: normal lung sounds bilaterally. Absent: respiratory distress, wheezes, rales, rhonchi, stridor Cardiovascular Exam: Present: normal rhythm, tachycardia, normal heart sounds. Absent: systolic murmur, diastolic murmur, rubs, gallop, clicks GI/Abdominal exam: Present: soft, normal bowel sounds. Absent: distended, tenderness, guarding, rebound, rigid Rectal exam: Present: deferred Extremities exam: Present: normal inspection, full ROM, normal capillary refill. Absent: tenderness, pedal edema, joint swelling, calf tenderness Back exam: Present: normal inspection Neurological exam: Present: alert, oriented X3, CN II-XII intact Psychiatric exam: Present: normal affect, normal mood Skin exam: Present: warm, dry, intact, rash, urticaria. Absent: vesicles Course Vital Signs 04/02/17 04/02/17 04/02/17 19:30 19:55 20:24 Temperature 98.2 F Pulse Rate 118 H 92 87 Respiratory 24 26 H 24 Rate Blood Pressure 136/83 141/86 151/89 O2 Sat by Pulse 100 97 98 Oximetry 04/02/17 20:57 Temperature 99.2 F Pulse Rate 86 Respiratory 18 Rate Blood Pressure 137/85 O2 Sat by Pulse 98 Oximetry Medical Decision Making - Medical Decision Making 26-year-old male with past medical history of medication-induced Hardy-Georgi syndrome presented for evaluation of rash after his second day of baclofen treatment. On physical examination he appears mildly distressed and anxious however lungs are clear to auscultation bilaterally and there are no wheezing. He does have a localized area of urticaria to the right neck, left lateral back, and the back of his neck. The patient further states that he has pain and discomfort in his groin however on inspection there are no lesions in the groin and exam is benign. Patient was provided with Pepcid and steroids as well as some pain control. On reevaluation the patient stated his pain had nearly resolved and he was feeling much better. the rashes that were previously noted had decreased markedly and were no longer irritating. He was advised to discontinue taking the baclofen and to follow-up with his primary care physician this week. He was further advised to return to this facility if his symptoms should worsen or persist. The patient acknowledged an understanding of this information and agreed with this plan of care. - Lab Data Result diagrams: 04/02/17 19:40 04/02/17 19:40 Lab Results 04/02/17 04/02/17 04/02/17 Range/Units 19:40 19:40 20:00 WBC 9.1 (3.8-10.6) k/uL RBC 4.58 (4.30-5.90) m/uL Hgb 14.1 (13.0-17.5) gm/dL Hct 43.9 (39.0-53.0) % MCV 96.0 (80.0-100.0) fL MCH 30.9 (25.0-35.0) pg MCHC 32.2 (31.0-37.0) g/dL RDW 13.9 (11.5-15.5) % Plt Count 274 (150-450) k/uL Neutrophils % 62 % Lymphocytes % 26 % Monocytes % 5 % Eosinophils % 5 % Basophils % 0 % Neutrophils # 5.6 (1.3-7.7) k/uL Lymphocytes # 2.4 (1.0-4.8) k/uL Monocytes # 0.5 (0-1.0) k/uL Eosinophils # 0.4 (0-0.7) k/uL Basophils # 0.0 (0-0.2) k/uL Sodium 144 (137-145) mmol/L Potassium 4.3 (3.5-5.1) mmol/L Chloride 105 (98-107) mmol/L Carbon Dioxide 24 (22-30) mmol/L Anion Gap 15 mmol/L BUN 12 (9-20) mg/dL Creatinine 1.10 (0.66-1.25) mg/dL Est GFR (MDRD) Af Amer >60 (>60 ml/min/1.73 sqM) Est GFR (MDRD) Non-Af >60 (>60 ml/min/1.73 sqM) Glucose 104 H (74-99) mg/dL Plasma Lactic Acid Gaudencio 2.5 H* (0.7-2.0) mmol/L Calcium 9.9 (8.4-10.2) mg/dL C-Reactive Protein <5.0 (<10.0) mg/L 04/02/17 21:02 Normal sinus rhythm with a ventricular rate of 88, CAROL 142, QRS 114, QT/QTC 380/ 459. Disposition Clinical Impression: Allergic reaction Disposition: HOME SELF-CARE Condition: Stable Instructions: Anaphylaxis (ED) Referrals: Janna Sanderson MD [Primary Care Provider] - 1-2 days Time of Disposition: 21:25
[2017-04-02 21:14] LABS: Anion Gap 15 mmol/L; Blood Urea Nitrogen 12 mg/dL (9-20); C Reactive Protein <5.0 mg/L (<10.0); Calcium 9.9 mg/dL (8.4-10.2); Carbon Dioxide 24 mmol/L (22-30); Chloride 105 mmol/L (98-107); Glucose 104 mg/dL (74-99); Non-African American GFR(MDRD) >60 (>60 ml/min/1.73 sqM); Potassium 4.3 mmol/L (3.5-5.1); Sodium 144 mmol/L (137-145)
== END 2017-04-02 21:45 | disposition home or self-care (01) ==
LOC: EC 19:23
DX: R21 Rash and other nonspecific skin eruption (principal); T42.8X5A Adverse effect of antiparkinsonism drugs and other central muscle-tone depressants, initial encounter; E78.5 Hyperlipidemia, unspecified; M19.90 Unspecified osteoarthritis, unspecified site; D64.9 Anemia, unspecified; F84.5 Asperger's syndrome; F31.9 Bipolar disorder, unspecified; F41.9 Anxiety disorder, unspecified; F43.10 Post-traumatic stress disorder, unspecified; F17.200 Nicotine dependence, unspecified, uncomplicated; Z79.51 Long term (current) use of inhaled steroids; Z79.899 Other long term (current) drug therapy; Z91.040 Latex allergy status; Z88.6 Allergy status to analgesic agent; Z88.8 Allergy status to other drugs, medicaments and biological substances
CPT/HCPCS: 36415; 93005; 80048; 83605; 85025; 86140; 99283; 96374; 96375 ×2; 96361 ×2; J2270; J2930

== ENCOUNTER 2017-04-15 15:22 | Inpatient (IN) | payer MEDICARE, MEDICAID ==
--- NOTE | 2017-04-15 16:26 | ED ---
General Adult HPI - General Chief complaint: Psychiatric Symptoms Stated complaint: Mental Health Time Seen by Provider: 04/15/17 16:16 Source: patient, RN notes reviewed Mode of arrival: ambulatory Limitations: no limitations - History of Present Illness Initial comments: Patient 27-year-old male presents today with a chief complaint of increased auditory and visual hallucinations. Patient does admit that he's had symptoms similar to this in the past. He states he seemed to be stronger today than usual. He states he's concerned that he may harm himself. He states she's not having thoughts of suicide but when he hears these voices and hears and sees things he becomes upset and he punches other objects hurting his hands. Patient states the pills very frustrated. States he came here to see if he could get any help. He denies any homicidal thoughts or plans. Denies any other complaints or associated symptoms. States no change in his psychiatric meds but did recently began taking Flexeril. Patient denies any recent fever, chills, shortness of breath, chest pain, back pain, abdominal pain, nausea or vomiting, numbness or tingling, dysuria or hematuria, constipation or diarrhea, headaches or visual changes, or any other complaints. - Related Data Home Medications Medication Instructions Recorded Confirmed Fenofibrate [Lofibra] 54 mg PO HS 09/06/16 04/15/17 LORazepam [Ativan] 1 mg PO TID PRN 09/06/16 04/15/17 [place] Carbonate 300 mg PO TID 09/06/16 04/15/17 Albuterol Inhaler [Ventolin Hfa 2 puff INHALATION RT-QID PRN 11/28/16 04/15/17 Inhaler] Montelukast [Singulair] 10 mg PO DAILY 12/23/16 04/15/17 QUEtiapine [SEROquel] 800 mg PO HS 12/23/16 04/15/17 Mirtazapine [Remeron] 15 mg PO HS 03/05/17 04/15/17 Cholecalciferol [Vitamin D3] 5,000 unit PO HS 04/02/17 04/15/17 Cyanocobalamin (Vitamin B-12) 1,000 mcg PO DAILY 04/15/17 04/15/17 [Vitamin B-12] Cyanocobalamin [Vitamin B-12 1,000 mcg SQ TU 04/15/17 04/15/17 Injection] Cyclobenzaprine [Flexeril] 10 mg PO BID PRN 04/15/17 04/15/17 Levomefolate Calcium 15 mg PO DAILY 04/15/17 04/15/17 [l-Methylfolate Calcium] Omeprazole [PriLOSEC] 40 mg PO HS 04/15/17 04/15/17 Allergies Allergy/AdvReac Type Severity Reaction Status Date / Time Latex, Natural Rubber Allergy Severe Rash/Hives/ Verified 04/15/17 17:33 Dyspnea baclofen Allergy Erythema Verified 04/15/17 17:33 Multiforme Major bupropion HCl Allergy Anaphylaxis Verified 04/15/17 15:37 [From Wellbutrin] codeine Allergy Unknown Verified 04/15/17 17:33 divalproex sodium Allergy Swelling Verified 04/15/17 15:37 [From Depakote] fluticasone furoate Allergy Anaphylaxis Verified 04/15/17 17:43 [From [place]o Ellipta] gabapentin [From Neurontin] Allergy Anaphylaxis Verified 04/15/17 15:37 hydrocodone Allergy Unknown Verified 04/15/17 17:33 lamotrigine [From Lamictal] Allergy Swelling Verified 04/15/17 15:37 methadone Allergy Unknown Verified 04/15/17 17:33 NSAIDS (Non-Steroidal Allergy Rash/Hives Verified 04/15/17 15:37 Anti-Inflamma vilanterol Allergy Anaphylaxis Verified 04/15/17 17:43 [From Breo Ellipta] Review of Systems ROS Statement: Those systems with pertinent positive or pertinent negative responses have been documented in the HPI. ROS Other: All systems not noted in ROS Statement are negative. Past Medical History Past Medical History: Fibromyalgia, GERD/Reflux, Hyperlipidemia, Osteoarthritis (OA), Sleep Apnea/CPAP/BIPAP Additional Past Medical History / Comment(s): IRRITABLE BOWEL, PAST ANEMIA CHRONIC BACK PAIN/DDD LUMBAR REGION,KIDNEY STONE asperger's syndrome, chronic heat rash to R-arm, R-torso and back. History of Any Multi-Drug Resistant Organisms: None Reported Past Surgical History: Adenoidectomy, Appendectomy, Tonsillectomy Additional Past Surgical History / Comment(s): UPPP, VASECTOMY, SX FOR UNDESCENDED TESTICLE RT SIDE,EGD W/BX(NEG), GRAFTS ON GUMS YOUTH,LUMBAR FACET ARTHROPATHY LEFT L4,L5 SACRAL ALA MEDIAL BRACH RADIAL FREQUENCY ABLATION Past Anesthesia/Blood Transfusion Reactions: No Reported Reaction Additional Past Anesthesia/Blood Transfusion Reaction / Comment(s): CLAUSTERPHOBIA Past Psychological History: Anxiety, Bipolar, Depression, PTSD, Schizoaffective Disorder, Schizophrenia Additional Psychological History / Comment(s): PYSCHOSIS, AUTISM Smoking Status: Current every day smoker Past Alcohol Use History: Occasional Additional Past Alcohol Use History / Comment(s): Patient was a smoker for 7 years and quit one and half years ago. He states he quit chewing tobacco 1 year ago. He denies any medical marijuana, marijuana or street drug use. He denies any alcohol use. Patient is single and does not have any children. Past Drug Use History: None Reported - Past Family History Father Family Medical History: Diabetes Mellitus Additional Family Medical History / Comment(s): Patient's father is alive with no major medical problems. Mother Family Medical History: Fibromyalgia, Thyroid Disorder Additional Family Medical History / Comment(s): IBS Sister(s) Additional Family Medical History / Comment(s): depression General Exam - General Exam Comments Initial Comments: General: The patient is awake and alert, in no distress, and does not appear acutely ill. Eye: Pupils are equal, round and reactive to light, extra-ocular movements are intact. No nystagmus. There is normal conjunctiva bilaterally. No signs of icterus. Ears, nose, mouth and throat: There are moist mucous membranes and no oral lesions. Neck: The neck is supple, there is no tenderness or JVD. Cardiovascular: There is a regular rate and rhythm. No murmur, rub or gallop is appreciated. Respiratory: Lungs are clear to auscultation, respirations are non-labored, breath sounds are equal. No wheezes, stridor, rales, or rhonchi. Musculoskeletal: Normal ROM, no tenderness. Strength 5/5. Sensation intact. Pulses equal bilaterally 2+. Neurological: A&O x 3. CN II-XII intact, There are no obvious motor or sensory deficits. Coordination appears grossly intact. Speech is normal. Skin: Skin is warm and dry and no rashes or lesions are noted. Psychiatric: Cooperative. Limitations: no limitations Course Vital Signs 04/15/17 15:33 Temperature 98.6 F Pulse Rate 121 H Respiratory 20 Rate Blood Pressure 116/73 O2 Sat by Pulse 100 Oximetry Medical Decision Making - Medical Decision Making patient's been evaluated by mental health here in the emergency room. They recommend admission to the hospital. Patient will sign himself in. - Lab Data Lab Results 04/15/17 Range/Units 16:30 Urine Opiates Screen Not Detected (NotDetected) Ur Oxycodone Screen Not Detected (NotDetected) Urine Methadone Screen Not Detected (NotDetected) Ur Propoxyphene Screen Not Detected (NotDetected) Ur Barbiturates Screen Not Detected (NotDetected) U Tricyclic Antidepress Detected H (NotDetected) Ur Phencyclidine Scrn Not Detected (NotDetected) Ur Amphetamines Screen Not Detected (NotDetected) U Methamphetamines Scrn Not Detected (NotDetected) U Benzodiazepines Scrn Detected H (NotDetected) Urine Cocaine Screen Not Detected (NotDetected) U Marijuana (THC) Screen Not Detected (NotDetected) Disposition Clinical Impression: Hallucinations Disposition: TRANSFER TO PSYCH HOSP/UNIT Condition: Stable Referrals: Tami Chan MD [Primary Care Provider] - 1-2 days Time of Disposition: 18:03
[2017-04-15] MEDS ORDERED: MAGNESIUM HYDROXIDE 2,400 MG/10 ML CUP PO PRN (18:55)
[2017-04-15] MEDS ORDERED: MAG HYDROX/AL HYDROX/SIMETH 30 ML CUP PO PRN (18:55)
[2017-04-15] MEDS ORDERED: MIRTAZAPINE 15 MG TAB PO SCH (21:00)
[2017-04-15] MEDS: NICOTINE 21MG/24HR PATCH TRANSDERM SCH (21:01)
[2017-04-15] MEDS: QUEtiapine 400 MG TAB PO SCH (21:02)
[2017-04-15] MEDS: PANTOPRAZOLE 40 MG TABLET PO SCH (21:02)
[2017-04-15] MEDS: CHOLECALCIFEROL 1,000 UNIT TAB PO SCH (21:02)
[2017-04-15] MEDS: FENOFIBRATE 54 MG TAB PO SCH (22:18)
[2017-04-15] MEDS: LITHIUM CARBONATE 300 MG CAP PO SCH (22:19)
[2017-04-15 23:46] VITALS: BMI 28.0
[2017-04-16] MEDS: MONTELUKAST 10 MG TAB PO SCH (08:44)
[2017-04-16] MEDS: LORazepam 1 MG TAB PO PRN ×3 (08:44→20:10)
[2017-04-16] MEDS: LITHIUM CARBONATE 300 MG CAP PO SCH ×3 (09:09→20:09)
[2017-04-16 09:26] LABS: Basophils % (A) 1 %; CH 30.4; Eosinophils # (A) 0.2 k/uL (0-0.7); Eosinophils % (A) 3 %; HCT 43.9 % (39.0-53.0); HDW 2.41; Luc # (Auto) 0.12; Luc % (Auto) 2; Lymphocytes # (A) 1.7 k/uL (1.0-4.8); Lymphocytes % (A) 25 %; MCH 30.5 pg (25.0-35.0); MCHC 31.9 g/dL (31.0-37.0); MCV 95.4 fL (80.0-100.0); Mean Platelet Volume 7.7; Monocytes # (A) 0.4 k/uL (0-1.0); Monocytes % (A) 6 %; Neutrophils # (A) 4.3 k/uL (1.3-7.7); Neutrophils % (A) 64 %; WBC 6.7 k/uL (3.8-10.6); WBC (Perox) 6.71
[2017-04-16 09:52] LABS: ALT 25 U/L (21-72); AST 17 U/L (17-59); Alkaline Phosphatase 39 U/L (38-126); Anion Gap 8 mmol/L; Blood Urea Nitrogen 18 mg/dL (9-20); Calcium 10.2 mg/dL (8.4-10.2); Carbon Dioxide 26 mmol/L (22-30); Chloride 108 mmol/L (98-107); Glucose 79 mg/dL (74-99); Non-African American GFR(MDRD) >60 (>60 ml/min/1.73 sqM); Potassium 4.7 mmol/L (3.5-5.1); Sodium 142 mmol/L (137-145); Total Bilirubin 1.3 mg/dL (0.2-1.3)
[2017-04-16 10:36] LABS: Lithium 0.6 mmol/L
[2017-04-16] MEDS: FOLIC ACID 1 MG TAB PO SCH (10:58)
[2017-04-16] MEDS: CYCLOBENZAPRINE 10 MG TAB PO PRN ×2 (10:58→20:09)
[2017-04-16] MEDS: CYANOCOBALAMIN 500 MCG TAB PO SCH (10:58)
--- NOTE | 2017-04-16 11:28 | P.HP ---
Psychiatric H&P - . History & Physical: Allergies Allergy/AdvReac Type Severity Reaction Status Date / Time Latex, Natural Rubber Allergy Severe Rash/Hives/ Verified 04/15/17 23:33 Dyspnea baclofen Allergy Erythema Verified 04/15/17 23:33 Multiforme Major bupropion HCl Allergy Anaphylaxis Verified 04/15/17 23:33 [From Wellbutrin] codeine Allergy Unknown Verified 04/15/17 23:33 divalproex sodium Allergy Swelling Verified 04/15/17 23:33 [From Depakote] fluticasone furoate Allergy Anaphylaxis Verified 04/15/17 23:33 [From Breo Ellipta] gabapentin [From Neurontin] Allergy Anaphylaxis Verified 04/15/17 23:33 hydrocodone Allergy Unknown Verified 04/15/17 23:33 lamotrigine [From Lamictal] Allergy Swelling Verified 04/15/17 23:33 methadone Allergy Unknown Verified 04/15/17 23:33 NSAIDS (Non-Steroidal Allergy Rash/Hives Verified 04/15/17 15:37 Anti-Inflamma vilanterol Allergy Anaphylaxis Verified 04/15/17 17:43 [From Breo Ellipta] Vital Signs Temp 97.8 F 04/16/17 05:56 Pulse 94 04/16/17 05:56 Resp 16 04/16/17 05:56 BP 122/82 04/16/17 05:56 Pulse Ox 99 04/15/17 19:07 Intake & Output 04/15/17 04/16/17 04/16/17 18:59 06:59 18:59 Weight 104.326 kg 104.33 kg Laboratory Last Values WBC 6.7 k/uL (3.8-10.6) 04/16/17 09:06 RBC 4.60 m/uL (4.30-5.90) 04/16/17 09:06 Hgb 14.0 gm/dL (13.0-17.5) 04/16/17 09:06 Hct 43.9 % (39.0-53.0) 04/16/17 09:06 MCV 95.4 fL (80.0-100.0) 04/16/17 09:06 MCH 30.5 pg (25.0-35.0) 04/16/17 09:06 MCHC 31.9 g/dL (31.0-37.0) 04/16/17 09:06 RDW 14.0 % (11.5-15.5) 04/16/17 09:06 Plt Count 223 k/uL (150-450) 04/16/17 09:06 Neutrophils % 64 % 04/16/17 09:06 Lymphocytes % 25 % 04/16/17 09:06 Monocytes % 6 % 04/16/17 09:06 Eosinophils % 3 % 04/16/17 09:06 Basophils % 1 % 04/16/17 09:06 Neutrophils # 4.3 k/uL (1.3-7.7) 04/16/17 09:06 Lymphocytes # 1.7 k/uL (1.0-4.8) 04/16/17 09:06 Monocytes # 0.4 k/uL (0-1.0) 04/16/17 09:06 Eosinophils # 0.2 k/uL (0-0.7) 04/16/17 09:06 Basophils # 0.0 k/uL (0-0.2) 04/16/17 09:06 Sodium 142 mmol/L (137-145) 04/16/17 09:06 Potassium 4.7 mmol/L (3.5-5.1) 04/16/17 09:06 Chloride 108 mmol/L (98-107) H 04/16/17 09:06 Carbon Dioxide 26 mmol/L (22-30) 04/16/17 09:06 Anion Gap 8 mmol/L 04/16/17 09:06 BUN 18 mg/dL (9-20) 04/16/17 09:06 Creatinine 1.25 mg/dL (0.66-1.25) 04/16/17 09:06 Est GFR (MDRD) Af Amer >60 (>60 ml/min/1.73 sqM) 04/16/17 09:06 Est GFR (MDRD) Non-Af >60 (>60 ml/min/1.73 sqM) 04/16/17 09:06 Glucose 79 mg/dL (74-99) 04/16/17 09:06 Calcium 10.2 mg/dL (8.4-10.2) 04/16/17 09:06 Total Bilirubin 1.3 mg/dL (0.2-1.3) 04/16/17 09:06 AST 17 U/L (17-59) 04/16/17 09:06 ALT 25 U/L (21-72) 04/16/17 09:06 Alkaline Phosphatase 39 U/L (38-126) 04/16/17 09:06 Total Protein 7.0 g/dL (6.3-8.2) 04/16/17 09:06 Albumin 4.4 g/dL (3.5-5.0) 04/16/17 09:06 TSH 3.510 mIU/L (0.465-4.680) 04/16/17 09:06 Urine Opiates Screen Not Detected (NotDetected) 04/15/17 16:30 Ur Oxycodone Screen Not Detected (NotDetected) 04/15/17 16:30 Urine Methadone Screen Not Detected (NotDetected) 04/15/17 16:30 Ur Propoxyphene Screen Not Detected (NotDetected) 04/15/17 16:30 Ur Barbiturates Screen Not Detected (NotDetected) 04/15/17 16:30 U Tricyclic Antidepress Detected (NotDetected) H 04/15/17 16:30 Ur Phencyclidine Scrn Not Detected (NotDetected) 04/15/17 16:30 Ur Amphetamines Screen Not Detected (NotDetected) 04/15/17 16:30 U Methamphetamines Scrn Not Detected (NotDetected) 04/15/17 16:30 U Benzodiazepines Scrn Detected (NotDetected) H 04/15/17 16:30 [place]cher 0.6 mmol/L 04/16/17 09:06 Urine Cocaine Screen Not Detected (NotDetected) 04/15/17 16:30 U Marijuana (THC) Screen Not Detected (NotDetected) 04/15/17 16:30 Identifying Information: Mr. Scottie Delgado is 27-year-old unemployed male, who lives with his mother, with prior psychiatric diagnosis of bipolar disorder, who came to the ED last night complaining of severe auditory and visual hallucination that stress him out to the point he would injure himself. CC: "The hallucination is so severe and I am worried about hurting myself " History of Present Illness: The patient with long history of mental illness including bipolar disorder and psychosis presented yesterday to the ED stated that the auditory and visual hallucination are so severe and that he is worried he would punch himself punching de [place]ant[place] or doing something to hurt himself to make the voices to stop. Patient stated that the auditory hallucination get more intense and frequent over the past 2 weeks and he is hearing multiple voices of people talking about him or talking to each other and sometimes the voices giving him command or prompted him to do some activities. He denies voices telling him to hurt self or others. The patient reported seen many people who are and that stress him out and get him more agitated. He was thinking about punching [place] crash his hand or bang his head to get the voices to stop. The patient reported has been compliant with his medication but he addressed Remeron was making him sleepy and he left message to Dr. Dickson's office about his response to the Remeron. The patient stated recent financial stressors including his mother using his name to sign up for multiple credit cards and he feels distressed about that. Patient reported some fluctuation in his mood, and he feels more irritable, easily agitated. He denies any recent manic episodes, and he denies any worsening of paranoia. The patient denies any active thoughts to end his life and he denies any thoughts to hurt others. Past Psychiatric History: Hospitalizations: Patient has multiple prior psychiatric hospitalization including at least 4 times at this hospital besides others. According to the record last time has been hospitalized to the same unit was June 2016 Medications Trials: The patient had multiple trials with different psychotropic medication including different antidepressant and different mood stabilizers. Prior Psychiatrist: Patient is currently followed as outpatient was Dr. Dickson. The patient is currently on Seroquel, Remeron, and lithium. Prior Suicidal attempts/ Thoughts: Patient denies any prior suicidal attempt Prior Self injurious behavior: Denies. Substance use history: The patient denies any history of substance use disorder Social History: The patient is currently lives with his mother and his stepfather, unemployed on SSD, he is graduated high school. Patient has a girlfriend who lives with him and his parents. Patient denies any history of legal problems. Past history of trauma (physical/psychological/sexual): Pt denies history of abuse, or any psychological trauma. Past medical history: Hypertriglyceridemia, esophageal reflux, obesity Allergies: He reported ALLERGIES to multiple medications including baclofen, Wellbutrin, codeine, Depakote, Neurontin, Lamictal, methadone, nonsteroidal, and he reported ALLERGY to latex. Mental status examination; Appearance: The patient appears stated age, adequately groomed, no specific features Gait and posture: Steady gait, no abnormal movement Attitude and behavior: Engaged, cooperative, fair eye contact Motor activity: No psychomotor retardation or agitation Speech: Spontaneous, normal rate dressed and articulated Mood: Irritable, agitated Affect: Constricted Thought form goal directed, coherent Thought content: Non-delusional, denies suicidal thoughts but reported thoughts of self-harm due to hallucinations , denies homicidal thoughts, denies intentions or plans. Perception: reported auditory or visual hallucinations Attention: No impairment. Orientation: Patient patient was fully oriented to time place person and situation. Insight: Patient has limited insight about his psychiatric disorder. Judgment: Patient has limited judgment about his psychiatric treatment. Patient strengths: Optimism to change, SSD, Housing, access to mental health services Patient weaknesses: Poor coping skills, Limited social support, Poor compliance with treatment, financial Diagnostic impression: The patient is 27-year-old male with extensive history of multiple psychiatric hospitalizations, who presented yesterday with severe agitation and thoughts to hurt himself in context of continued auditory and visual hallucinations. Even the patient denied any suicidal intention but he couldn't commit for his safety because of the hallucinations. The patient was feeling to punch de [place]ant[place], banging head or hurting himself to stop the voices and visual hallucinations. Patient in [place] recent stressor include financial problems and some conflicts with his mother. Bipolar disorder type I with psychotic features This take spectrum by history Treatment/ plan: Patient has been admitted to inpatient psychiatric level of care Check: as per unit routine Diet: Low cholesterol Lab ordered on admission: CMP, CBC, TSH - ordered UDS on admission- ordered PSYCHIATRIC MEDICATIONS Continue lithium 300 mg by mouth 3 times a day for mood symptoms Seroquel 800 mg by mouth at bedtime as a mood stabilizer and for psychotic symptoms Remeron 15 mg by mouth at bedtime when necessary insomnia and for depression symptoms Ativan 1 mg by mouth 3 times a day when necessary severe anxiety or agitation PRN medications Non-psychiatric medications: Singulair 10 mg by mouth daily for asthma Fenofibrate or hypertriglyceridemia Protonix for GERD Psychoeducation about: Nature of psychiatric illnesses Adherence to treatment Participation in groups/ individual therapy, and other activities 04/16/17 11:01
[2017-04-16] MEDS ORDERED: MIRTAZAPINE 15 MG TAB PO PRN (11:29)
[2017-04-16] MEDS: PANTOPRAZOLE 40 MG TABLET PO SCH (20:09)
[2017-04-16] MEDS: NICOTINE 21MG/24HR PATCH TRANSDERM SCH (20:09)
[2017-04-16] MEDS: FENOFIBRATE 54 MG TAB PO SCH (20:09)
[2017-04-16] MEDS: CHOLECALCIFEROL 1,000 UNIT TAB PO SCH (20:09)
[2017-04-16] MEDS: QUEtiapine 400 MG TAB PO SCH (20:09)
--- NOTE | 2017-04-16 23:18 | CONS ---
DATE OF CONSULTATION: 04/16/2017 REASON FOR CONSULTATION: Advice regarding hypercholesterolemia and other medical issues, requested by psychiatry. HISTORY OF PRESENT ILLNESS: This 27-year-old gentleman with a past medical history of multiple medical problems including fibromyalgia, GERD, hyperlipidemia, DJD, sleep apnea, anxiety, depression, PTSD, disorder, followed by Dr. Ramsey in the outpatient setting, presented for psychiatric evaluation. There is no history of fever. No history of headache, loss of consciousness or seizures. The patient had asthma but without any episodes recently. The patient also was taking TriCor for hypercholesterolemia according to her. There is no history of chest pain, no history of palpitations. No history of headaches, loss of consciousness or seizure. PAST MEDICAL HISTORY: Fibromyalgia, GERD, hyperlipidemia, history of degenerative joint disease, history of sleep apnea, depression, PTSD. Medications prior to admission include: 1. Seroquel 18 mg p.o. at bedtime. 2. Prilosec 40 mg daily p.r.n. 3. Singulair 10 mg daily. 4. Remeron 50 mg daily. 5. [place] 300 mg p.o. daily. 7. Ativan 1 mg t.i.d. p.r.n. 8. Lofibra 54 mg p.o. at bedtime. 9. Flexeril 10 mg b.i.d. p.r.n. 10. Vitamin B12, 1000 mg daily. 11. Vitamin D 500 daily. 12. Ventolin HFA 1 to 2 puffs q.i.d. p.r.n. ALLERGIES: LATEX, BUPROPION, CODEINE, DEPAKOTE, FLUTICASONE, GABAPENTIN, HYDROCODONE, LAMICTAL, METHADONE, NSAIDS, FAMILY HISTORY: History of diabetes mellitus. SOCIAL HISTORY: History of smoking. No history of alcohol. No substance abuse. REVIEW OF SYSTEMS: ENT: No diminished hearing or vision. CARDIOVASCULAR: S1 and S2 muffled. GI: As mentioned. : No dysuria or hematuria. NERVOUS SYSTEM: No numbness or weakness. IMMUNOLOGY/ASTHMA: As mentioned. MUSCULOSKELETAL: As mentioned. HEMATOLOGY: No anemia. ENDOCRINE: As mentioned. CONSTITUTIONAL: As mentioned. DERMATOLOGY: As mentioned. PSYCHIATRY: As mentioned. ALLERGY/IMMUNOLOGY: Asthma. PHYSICAL EXAMINATION: GENERAL: Alert, oriented x3. VITAL SIGNS: Pulse 89, blood pressure 130/69, respirations 18, temperature 98.6, pulse ox 99% on room air. HEENT: Conjunctivae normal. Oral mucosa moist. NECK: No JVD. No carotid bruits. CARDIOVASCULAR: S1 and S2 muffled. LUNGS: Breath sounds diminished at the bases. Few rhonchi. No crackles. ABDOMEN: Soft, nontender. No masses palpable. EXTREMITIES: Legs no edema. CLINICAL AUDITOR: No focal motor or sensory deficits. No facial asymmetry. No nystagmus. LYMPHATICS: No lymph nodes palpable in the neck, axillae, groin. SKIN: No rashes. JOINTS: No deformity. LABS: CBC within normal limits. CMP within normal limits. Drug screen is positive for benzodiazepines as well as. ASSESSMENT: 1. Bipolar. 2. History of asthma, chronic, intermittent. 3. Fibromyalgia. 4. History of gastroesophageal reflux disease. 5. Hyperlipidemia. 6. History of degenerative joint disease. 7. Hypercholesterolemia. 8. History of irritable bowel syndrome. 9. History nephrolithiasis. 10. History of Asperger's syndrome. 11. History of anxiety, bipolar, depression, PTSD, and schizophrenia. 12. History of nicotine dependence. RECOMMENDATIONS AND DISCUSSION: In this 27-year-old year-old gentleman at this time I recommend to continue current medications, continue symptomatic treatment, resume the home medications. Advised follow up with the primary physician in the outpatient setting regarding the above stated medical problems. We will patient closely. Thank you for letting us participate in the care of this patient. SONY
[2017-04-17] MEDS: MONTELUKAST 10 MG TAB PO SCH (09:21)
[2017-04-17] MEDS: LITHIUM CARBONATE 300 MG CAP PO SCH ×3 (09:21→21:58)
[2017-04-17] MEDS: CYCLOBENZAPRINE 10 MG TAB PO PRN ×2 (09:22→21:58)
[2017-04-17] MEDS: LORazepam 1 MG TAB PO PRN ×2 (09:22→16:00)
[2017-04-17] MEDS: CYANOCOBALAMIN 500 MCG TAB PO SCH (12:54)
[2017-04-17] MEDS: FOLIC ACID 1 MG TAB PO SCH (12:54)
--- NOTE | 2017-04-17 14:48 | P.PN ---
Progress Note - Text SUBJECTIVE: I reviewed the medical record and interviewed Mr. Delgado. His 27- year-old male with history of schizophrenia. He presented to unit voluntarily with complaints of increasing auditory and visual hallucinations. During interview he complained of "stress". He attributed to stress to increasing psychotic symptoms and financial problems. He is living with his girlfriend/fianc and is responsible for all bills He is unable to meet all expenses and his mother pays for some of the utilities. He complained of continued auditory and visual hallucinations. The auditory hallucinations involve multiple voices that ask questions or distract him. He denied that the voices are critical or condemning. The hallucinations take the form of "seeing crowds of people." OBJECTIVE: He presented as a tall disheveled appearing male who was pleasant on approach. He made eye contact and attended the interview. He had no distinguishing features or prominent physical abnormalities. He had a blunted and distressed facial expression. He showed psychomotor retardation but no abnormal involuntary movements. His speech was spontaneous with decreased rate, rhythm and volume. His affect was blunted and depressed. He denied suicidal ideation or wishes. He denied homicidal ideation. He expresses feelings of helplessness and hopelessness. He ruminated about his hallucinations and "stress". He did not express ideas reference or paranoid ideation. His thinking was concrete but his associations were coherent and logical. He did not appear to be responding to internal stimuli. ASSESSMENT: Overall, he appears moderately mentally ill and minimally improved from admission. PLAN: Continue inpatient hospitalization. Continue suicide precautions with 15 minute checks. Continue lithium 300 mg 3 times a day (admission lithium level was 0.6), Ativan 1 mg 3 times a day and Seroquel 300 mg at bedtime. Discontinue Remeron at his request. He may benefit from trial of a different antipsychotic medication. Encourage participation in therapeutic groups and activities. Evaluate clinical status response to treatment daily basis.
[2017-04-17] MEDS ORDERED: ZIPRASIDONE 20 MG VIAL IM PRN (17:06)
[2017-04-17] MEDS ORDERED: LORazepam 2 MG/ML SYRINGE IM PRN (17:07)
[2017-04-17] MEDS ORDERED: WATER FOR INJECTION, STERILE 10 ML IV ONE (17:12)
[2017-04-17] MEDS ORDERED: ZIPRASIDONE 20 MG VIAL IM ONE (17:13)
[2017-04-17] MEDS: NICOTINE 21MG/24HR PATCH TRANSDERM SCH (21:57)
[2017-04-17] MEDS: CHOLECALCIFEROL 1,000 UNIT TAB PO SCH (21:57)
[2017-04-17] MEDS: PANTOPRAZOLE 40 MG TABLET PO SCH (21:58)
[2017-04-17] MEDS: FENOFIBRATE 54 MG TAB PO SCH (21:58)
[2017-04-17] MEDS: QUEtiapine 400 MG TAB PO SCH (21:58)
[2017-04-18] MEDS ORDERED: DIAZEPAM 5 MG TAB PO PRN (08:42)
--- NOTE | 2017-04-18 08:49 | P.PN ---
Progress Note - Text Interval history: The patient is found in the hallway he follows me to an interview room. He is known to my outpatient practice. He reports becoming overwhelmed with financial matters this is caused him to feel anxious panicky and he states he's had a reoccurrence of auditory hallucinations. He states he' s had no energy and doesn't know what to do. Apparently he does not have enough income to cover his expenses despite their best efforts to budget her money. He states that his mother manages credit card debt that is in his name and she is his payee. He presented to the hospital feeling overwhelmed he had hopeless thinking and suicidal thoughts. He was continued on his lithium Seroquel and Ativan. Mental status exam: The patient is an alert male he is a disheveled appearance the sides of his head are shaved. He is wearing eyeglasses. Eye contact is intermittent affect is bland. He reports a depressed mood with hopelessness thinking. He reports significant feelings of anxiety. He has endorsed some auditory hallucinations that are noncommanding at this time. He reports no homicidal ideation. He reports no visual hallucinations. He seated calmly he demonstrates no verbal or physical aggressiveness. He is oriented to person place and date. Insight and judgment limited. Plan: The patient will continue on his current psychotropic medications we will discontinue the Ativan and start Valium 5 mg up to twice daily as needed. The patient does tend to have this reaction with psychosocial stressors. He has been tried on numerous other antipsychotic medications as well as mood stabilizers and antidepressants. He has had adverse reactions to several antidepressants previously. He finds it difficult to communicate with his mother but it appears he needs to in order to better understand his financial situation. We discussed him possibly looking into other community resources. We will monitor him for safety and encourage his participation in the milieu. We will discuss his case during team meeting.
[2017-04-18] MEDS: MONTELUKAST 10 MG TAB PO SCH (09:59)
[2017-04-18] MEDS: CYCLOBENZAPRINE 10 MG TAB PO PRN ×2 (10:02→21:49)
[2017-04-18] MEDS: LITHIUM CARBONATE 300 MG CAP PO SCH ×3 (10:02→21:46)
[2017-04-18] MEDS: FOLIC ACID 1 MG TAB PO SCH (12:14)
[2017-04-18] MEDS: CYANOCOBALAMIN 500 MCG TAB PO SCH (12:14)
[2017-04-18] MEDS: NICOTINE 21MG/24HR PATCH TRANSDERM SCH (21:45)
[2017-04-18] MEDS: QUEtiapine 400 MG TAB PO SCH (21:46)
[2017-04-18] MEDS: CHOLECALCIFEROL 1,000 UNIT TAB PO SCH (21:46)
[2017-04-18] MEDS: PANTOPRAZOLE 40 MG TABLET PO SCH (21:46)
[2017-04-18] MEDS: FENOFIBRATE 54 MG TAB PO SCH (21:46)
--- NOTE | 2017-04-19 08:58 | P.PN ---
Progress Note - Text Interval history: The patient is found in the dining room he follows me to an interview room. He reports his mood is significantly improved. He did have a phone conversation with his mother ventilating his concerns about management of his finances. He reports a sense of relief in doing that and realizes he cannot change his mother's behavior. He has been participating in groups he reports using the Valium just once yesterday and feels his anxiety is significantly reduced. We discussed further coping skill development. He reports he slept last evening appetite is stable. Mental status exam: The patient is alert he seated calmly eye contact is appropriate hygiene grooming are adequate. Speech is fluent spontaneous nonpressured. He reports his mood is improved affect is brighter. He is reporting no suicidal or homicidal ideation intent or plan. He is endorsing no auditory or visual hallucinations no specific delusions. There is no evidence of psychosis. Thought process is linear he's mildly circumstantial there is no tangential thinking loose associations or flight of ideas. Insight and judgment improving. He remains oriented to person place and date. There is no verbal or physical aggressiveness. Plan: The patient will continue on his current medication we will monitor him for safety. Anticipate discharging him tomorrow if he demonstrates continued clinical stability vital signs reviewed. Social work will arrange a support meeting.
[2017-04-19] MEDS: LITHIUM CARBONATE 300 MG CAP PO SCH ×3 (09:08→20:41)
[2017-04-19] MEDS: CYCLOBENZAPRINE 10 MG TAB PO PRN ×2 (09:08→20:41)
[2017-04-19] MEDS: MONTELUKAST 10 MG TAB PO SCH (09:08)
[2017-04-19] MEDS: CYANOCOBALAMIN 500 MCG TAB PO SCH (12:09)
[2017-04-19] MEDS: FOLIC ACID 1 MG TAB PO SCH (12:09)
[2017-04-19] MEDS: CHOLECALCIFEROL 1,000 UNIT TAB PO SCH (20:40)
[2017-04-19] MEDS: PANTOPRAZOLE 40 MG TABLET PO SCH (20:40)
[2017-04-19] MEDS: FENOFIBRATE 54 MG TAB PO SCH (20:40)
[2017-04-19] MEDS: NICOTINE 21MG/24HR PATCH TRANSDERM SCH (20:40)
[2017-04-19] MEDS: QUEtiapine 400 MG TAB PO SCH (20:41)
[2017-04-19] MEDS: ACETAMINOPHEN TAB 325 MG TAB PO PRN (21:22)
[2017-04-20 06:55] VITALS: BP 121/69; PULSE 63; RESP 16; TEMP 98.1
[2017-04-20] MEDS: MONTELUKAST 10 MG TAB PO SCH (08:11)
[2017-04-20] MEDS: LITHIUM CARBONATE 300 MG CAP PO SCH (08:11)
[2017-04-20] MEDS: CYCLOBENZAPRINE 10 MG TAB PO PRN (08:12)
[2017-04-20] MEDS ORDERED: DIAZEPAM 5 MG TAB PO PRN (08:53)
[2017-04-20] MEDS: ACETAMINOPHEN TAB 325 MG TAB PO PRN (09:32)
--- NOTE | 2017-04-20 09:52 | P.DS ---
Providers Date of admission: 04/15/17 18:43 Expected date of discharge: 04/20/17 Attending physician: David Dickson Consults: 04/15/17 18:55 Consult Physician Routine Consulting Provider: Porter Terrazas Consult Reason/Comments: H and P and Medical management Do you want consulting provider notified?: Yes Primary care physician: Tami Chan - Discharge Diagnosis(es) (1) Bipolar 1 disorder, depressed Current Visit: Yes Status: Acute Priority: High (2) Generalized anxiety disorder Current Visit: Yes Status: Acute Priority: Medium (3) Chronic post-traumatic stress disorder (PTSD) Current Visit: Yes Status: Acute Priority: Low (4) Autism spectrum disorder Current Visit: Yes Status: Acute Priority: Low Hospital Course: Brief summary admission note: This patient is a 27-year-old single male who was admitted to the mental health unit through the emergency room as he presented with severe auditory and visual hallucinations and suicidal ideation. The patient was evaluated by the [facility] physician covering for the weekend. He was admitted for safety reasons. The patient stated he had concerns that his symptoms of psychosis would drive him to punch himself punch the [place] or do something else to hurt himself. The patient is well known to my outpatient practice. For full detail please refer to the psychiatric evaluation. Summary of hospital course: The patient was admitted to the mental health unit voluntarily. He was initially seen by the [facility] physician and I assumed his care on Monday. We discussed the presenting symptoms and appears that the patient was overwhelmed by financial concerns. He has had a dependent relationship on his mother for numerous years over the last 1-2 years he has from her and resides with his girlfriend. He has tried to become more independent but during that process feels overwhelmed with stressors. He was able to confront his mother via phone regarding his financial concerns and feels better after doing so. He continues to be supported by her and his girlfriend. We discontinue the Ativan and initiated Valium as needed he felt that that had a longer duration of action and actually used less benzodiazepine here than typically as an outpatient. We discussed trying to reduce the amount of benzodiazepine used and he was agreeable. His suicidal thoughts and symptoms of psychosis quickly resolved. He is feeling optimistic and is expressing future oriented thinking. He demonstrated no agitated behavior. Mental status exam: The patient is a male appearing his stated age. The size of his head or shaved. Eye contact is appropriate he is dressed in his own clothing. Speech is fluent spontaneous nonpressured. He states his mood is "much better". Affect is euthymic. He denies having any suicidal or homicidal ideation intent or plan. He is endorsing no auditory or visual hallucinations no specific delusions there is no evidence of psychosis. He does not appear hypomanic or manic. Insight and judgment have improved. Insight and judgment are grossly intact. Cognitively he is oriented to person place and date. He demonstrates no verbal or physical aggressiveness. No abnormal involuntary movements. Impressions 1. Bipolar 1 disorder most recent depressed, post rash stress disorder, generalized anxiety disorder, autism spectrum disorder 2. Cluster B traits 3. Asthma, GERD, hyperlipidemia Plan: The patient will be discharged from the mental health unit today to return home residing with his girlfriend. He will continue to follow with his individual therapist [place] and myself for psychiatric medication management. Social work will confirm his follow-up appointments. He will continue on lithium 300 mg 3 times daily, Seroquel 800 mg at bedtime, Valium 5 mg up to daily as needed. There is no imminent safety risk he is appropriate for transition back to outpatient care. He is instructed to return to the hospital any acute safety concerns and he is agreeable. Patient Condition at Discharge: Stable Plan - Discharge Summary New Discharge Prescriptions: New Diazepam [Valium] 5 mg PO DAILY PRN #30 tab PRN Reason: Anxiety Nicotine 21Mg/24Hr Patch [Habitrol] 1 patch TRANSDERM Q24H #12 patch Continue [place] Carbonate 300 mg PO TID Fenofibrate [Lofibra] 54 mg PO HS Albuterol Inhaler [Ventolin Hfa Inhaler] 1 - 2 puff INHALATION RT-Q4H PRN PRN Reason: Shortness Of Breath Montelukast [Singulair] 10 mg PO DAILY QUEtiapine [SEROquel] 800 mg PO HS Cholecalciferol [Vitamin D3] 5,000 unit PO DAILY Cyclobenzaprine [Flexeril] 10 mg PO BID PRN PRN Reason: Muscle Spasm/Pain Omeprazole [PriLOSEC] 40 mg PO DAILY PRN PRN Reason: Gi Upset Levomefolate Calcium [l-Methylfolate Calcium] 15 mg PO DAILY Cyanocobalamin [Vitamin B-12 Injection] 1,000 mcg SQ TU Cyanocobalamin (Vitamin B-12) [Vitamin B-12] 1,000 mcg PO DAILY Discontinued LORazepam [Ativan] 1 mg PO TID PRN PRN Reason: Anxiety Mirtazapine [Remeron] 15 mg PO HS Discharge Medication List Fenofibrate [Lofibra] 54 mg PO HS 09/06/16 [History] [place] Carbonate 300 mg PO TID 09/06/16 [History] Albuterol Inhaler [Ventolin Hfa Inhaler] 1 - 2 puff INHALATION RT-Q4H PRN [History] Montelukast [Singulair] 10 mg PO DAILY 12/23/16 [History] QUEtiapine [SEROquel] 800 mg PO HS 12/23/16 [History] Cholecalciferol [Vitamin D3] 5,000 unit PO DAILY 04/02/17 [History] Cyanocobalamin (Vitamin B-12) [Vitamin B-12] 1,000 mcg PO DAILY 04/15/17 [ History] Cyanocobalamin [Vitamin B-12 Injection] 1,000 mcg SQ TU 04/15/17 [History] Cyclobenzaprine [Flexeril] 10 mg PO BID PRN 04/15/17 [History] Levomefolate Calcium [l-Methylfolate Calcium] 15 mg PO DAILY 04/15/17 [History] Omeprazole [PriLOSEC] 40 mg PO DAILY PRN 04/15/17 [History] Diazepam [Valium] 5 mg PO DAILY PRN #30 tab 04/20/17 [Rx] Nicotine 21Mg/24Hr Patch [Habitrol] 1 patch TRANSDERM Q24H #12 patch 04/20/17 [ Rx] Follow up Appointment(s)/Referral(s): Tami Chan MD [Primary Care Provider] - 1-2 days
[2017-04-20] MEDS: CYANOCOBALAMIN 500 MCG TAB PO SCH (11:38)
[2017-04-20] MEDS: FOLIC ACID 1 MG TAB PO SCH (11:38)
== END 2017-04-20 12:20 | disposition home or self-care (01) | DRG 885 ==
LOC: EC 15:22 → 3MHU 18:43
PROVIDERS: ADMIT Psychiatry & Neurology Psychiatry; ATTEND Psychiatry & Neurology Psychiatry
DX: F31.5 Bipolar disorder, current episode depressed, severe, with psychotic features (principal); R45.851 Suicidal ideations; F84.5 Asperger's syndrome; E78.1 Pure hyperglyceridemia; E78.5 Hyperlipidemia, unspecified; F17.200 Nicotine dependence, unspecified, uncomplicated; F41.1 Generalized anxiety disorder; F43.12 Post-traumatic stress disorder, chronic; G47.00 Insomnia, unspecified; G47.30 Sleep apnea, unspecified; K21.9 Gastro-esophageal reflux disease without esophagitis; K58.9 Irritable bowel syndrome, unspecified; M79.7 Fibromyalgia; E66.9 Obesity, unspecified; G89.29 Other chronic pain; M19.90 Unspecified osteoarthritis, unspecified site; M46.96 Unspecified inflammatory spondylopathy, lumbar region; M51.36 Other intervertebral disc degeneration, lumbar region; R21 Rash and other nonspecific skin eruption; J45.20 Mild intermittent asthma, uncomplicated; F40.240 Claustrophobia; F20.9 Schizophrenia, unspecified; Z68.28 Body mass index [BMI] 28.0-28.9, adult; Z59.9 Problem related to housing and economic circumstances, unspecified; Z79.899 Other long term (current) drug therapy; Z88.5 Allergy status to narcotic agent; Z88.8 Allergy status to other drugs, medicaments and biological substances; Z88.1 Allergy status to other antibiotic agents; Z91.040 Latex allergy status
CPT/HCPCS: 80053; 80178; 80306; 82075; 84443; 85025

== ENCOUNTER 2017-04-25 19:44 | Emergency (ER) | payer MEDICARE, OTHER ==
[2017-04-25] MEDS ORDERED: SODIUM CHLORIDE 0.9% 1,000 ML IV STA (20:32)
[2017-04-25 21:08] LABS: Basophils % (A) 0 %; CH 30.8; CHCM 34.2; Eosinophils # (A) 0.3 k/uL (0-0.7); Eosinophils % (A) 3 %; HCT 42.6 % (39.0-53.0); HDW 2.55; HGB 14.7 gm/dL (13.0-17.5); Luc # (Auto) 0.16; Luc % (Auto) 2; Lymphocytes # (A) 2.1 k/uL (1.0-4.8); Lymphocytes % (A) 26 %; MCH 31.3 pg (25.0-35.0); MCHC 34.6 g/dL (31.0-37.0); MCV 90.6 fL (80.0-100.0); Mean Platelet Volume 7.4; Monocytes # (A) 0.4 k/uL (0-1.0); Monocytes % (A) 5 %; Neutrophils # (A) 5.2 k/uL (1.3-7.7); Neutrophils % (A) 64 %; RDW 13.5 % (11.5-15.5); WBC 8.1 k/uL (3.8-10.6); WBC (Perox) 8.12
[2017-04-25 21:16] LABS: INR 1.1 (<1.1); Partial Thromboplastin Time 24.8 sec (22.0-30.0); Prothrombin Time 10.7 sec (9.0-12.0)
--- NOTE | 2017-04-25 21:19 | ED ---
General Adult HPI - General Chief complaint: Shortness of Breath Stated complaint: Allergic reaction Time Seen by Provider: 04/25/17 20:25 Source: patient, RN notes reviewed Mode of arrival: ambulatory Limitations: no limitations - History of Present Illness Initial comments: 27 yo male presents to the emergency Department chief complaint of tremor. He states that over the last 2 days has developed this time. Patient states she's felt short of breath. Patient states that episode of lightheadedness. Patient states he's had changes in urination. Patient states he does not know what to do. Patient states he's never had anything like this before. Patient states she was concerned due to his tremors they thought that he should be evaluated. Patient states he is able to walk. Patient states he goes to do a task is able to do but as soon as he ends the task the Tremor returns. Patient denies any recent fever, chills, chest pain, back pain, abdominal pain, nausea vomiting, numbness or tingling, dysuria or hematuria, constipation or diarrhea, headaches or visual changes, or any other current symptoms. - Related Data Home Medications Medication Instructions Recorded Confirmed Fenofibrate [Lofibra] 54 mg PO HS 09/06/16 04/25/17 [place] Carbonate 300 mg PO TID 09/06/16 04/25/17 Albuterol Inhaler [Ventolin Hfa 2 puff INHALATION RT-Q4H PRN 11/28/16 04/25/17 Inhaler] Montelukast [Singulair] 10 mg PO DAILY 12/23/16 04/25/17 QUEtiapine [SEROquel] 800 mg PO HS 12/23/16 04/25/17 Cholecalciferol [Vitamin D3] 5,000 unit PO DAILY 04/02/17 04/25/17 Cyanocobalamin (Vitamin B-12) 1,000 mcg PO DAILY 04/15/17 04/25/17 [Vitamin B-12] Levomefolate Calcium 15 mg PO DAILY 04/15/17 04/25/17 [l-Methylfolate Calcium] Albuterol Nebulized [Ventolin 2.5 mg INHALATION RT-Q6H PRN 04/25/17 04/25/17 Nebulized] Previous Rx's Medication Instructions Recorded Diazepam [Valium] 5 mg PO DAILY PRN #30 tab 06/01/17 Allergies Allergy/AdvReac Type Severity Reaction Status Date / Time Latex, Natural Rubber Allergy Severe Rash/Hives/ Verified 04/25/17 20:27 Dyspnea baclofen Allergy Erythema Verified 04/25/17 20:27 Multiforme Major bupropion HCl Allergy Anaphylaxis Verified 04/25/17 20:27 [From Wellbutrin] codeine Allergy Unknown Verified 04/25/17 20:27 divalproex sodium Allergy Swelling Verified 04/25/17 20:27 [From Depakote] fluticasone furoate Allergy Anaphylaxis Verified 04/25/17 20:27 [From Breo Ellipta] gabapentin [From Neurontin] Allergy Anaphylaxis Verified 04/25/17 20:27 hydrocodone Allergy Unknown Verified 04/25/17 20:27 lamotrigine [From Lamictal] Allergy Swelling Verified 04/25/17 20:27 methadone Allergy Unknown Verified 04/25/17 20:27 NSAIDS (Non-Steroidal Allergy Rash/Hives Verified 04/25/17 20:27 Anti-Inflamma vilanterol Allergy Anaphylaxis Verified 04/25/17 20:27 [From Breo Ellipta] Review of Systems ROS Statement: Those systems with pertinent positive or pertinent negative responses have been documented in the HPI. ROS Other: All systems not noted in ROS Statement are negative. Past Medical History Past Medical History: Fibromyalgia, GERD/Reflux, Hyperlipidemia, Osteoarthritis (OA), Sleep Apnea/CPAP/BIPAP Additional Past Medical History / Comment(s): IRRITABLE BOWEL, PAST ANEMIA CHRONIC BACK PAIN/DDD LUMBAR REGION,KIDNEY STONE asperger's syndrome, chronic heat rash to R-arm, R-torso and back. History of Any Multi-Drug Resistant Organisms: None Reported Past Surgical History: Adenoidectomy, Appendectomy, Tonsillectomy Additional Past Surgical History / Comment(s): UPPP, VASECTOMY, SX FOR UNDESCENDED TESTICLE RT SIDE,EGD W/BX(NEG), GRAFTS ON GUMS YOUTH,LUMBAR FACET ARTHROPATHY LEFT L4,L5 SACRAL ALA MEDIAL BRACH RADIAL FREQUENCY ABLATION Past Anesthesia/Blood Transfusion Reactions: No Reported Reaction Additional Past Anesthesia/Blood Transfusion Reaction / Comment(s): CLAUSTERPHOBIA Past Psychological History: Anxiety, Bipolar, Depression, PTSD, Schizoaffective Disorder, Schizophrenia Additional Psychological History / Comment(s): PYSCHOSIS, AUTISM Smoking Status: Current every day smoker Past Alcohol Use History: Occasional Additional Past Alcohol Use History / Comment(s): Patient was a smoker for 7 years and quit one and half years ago. He states he quit chewing tobacco 1 year ago. He denies any medical marijuana, marijuana or street drug use. He denies any alcohol use. Patient is single and does not have any children. Past Drug Use History: None Reported - Past Family History Father Family Medical History: Diabetes Mellitus Additional Family Medical History / Comment(s): Patient's father is alive with no major medical problems. Mother Family Medical History: Fibromyalgia, Thyroid Disorder Additional Family Medical History / Comment(s): IBS Sister(s) Additional Family Medical History / Comment(s): depression General Exam - General Exam Comments Initial Comments: General: The patient is awake and alert, in no distress, and does not appear acutely ill. Eye: Pupils are equal, round and reactive to light, extra-ocular movements are intact; there is normal conjunctiva bilaterally. No signs of icterus. Ears, nose, mouth and throat: There are moist mucous membranes. Neck: The neck is supple, there is no tenderness. Cardiovascular: There is a regular rate and rhythm. No murmur, rub or gallop is appreciated. Respiratory: Lungs are clear to auscultation, respirations are non-labored, breath sounds are equal. No wheezes, stridor, rales, or rhonchi. Gastrointestinal: Soft, non-distended, non-tender abdomen without masses or organomegaly noted. There is no rebound or guarding present. No CVA tenderness. Bowel sounds are unremarkable. Back: There is no tenderness to palpation in the midline. There is no obvious deformity. No rashes noted. Musculoskeletal: Normal ROM, no tenderness, There is no pedal edema. There is no calf tenderness or swelling. Sensation intact. Pulses equal bilaterally 2+. Neurological: CN II-XII intact, There are no obvious motor or sensory deficits. Coordination appears grossly intact. Speech is normal. Patient appears to have an intention tremor. Skin: Skin is warm and dry and no rashes or lesions are noted. Psychiatric: Cooperative, appropriate mood & affect, normal judgment. Limitations: no limitations Course Vital Signs 04/25/17 04/25/17 19:46 21:46 Temperature 98.9 F Pulse Rate 65 Pulse Rate [ 74 Pulse Oximetery ] Respiratory 24 Rate Blood Pressure 129/90 Blood Pressure 138/87 [Sitting] Blood Pressure 151/94 [Standing] Blood Pressure 126/74 [Supine] O2 Sat by Pulse 100 99 Oximetry Medical Decision Making - Medical Decision Making 27-year-old male presents emergency room chief complaint of new onset tremor. The patient's tremor stopped prior to receiving any medication. At this time the patient's psychiatric history we believe that the tremor was not due to organic finding. At this time he denies any suicidal or homicidal ideation. Patient was not retaining urine however we will give him follow-up with urology for this. We did discuss the blood work otherwise does appear to be normal. We discussed return parameters and follow-up all patient's questions. He stated then he understood and is in good plan. He will be discharged. - Lab Data Result diagrams: 04/25/17 21:00 04/25/17 21:00 Lab Results 04/25/17 04/25/17 04/25/17 Range/Units 21:00 21:00 21:00 WBC 8.1 (3.8-10.6) k/uL RBC 4.70 (4.30-5.90) m/uL Hgb 14.7 (13.0-17.5) gm/dL Hct 42.6 (39.0-53.0) % MCV 90.6 (80.0-100.0) fL MCH 31.3 (25.0-35.0) pg MCHC 34.6 (31.0-37.0) g/dL RDW 13.5 (11.5-15.5) % Plt Count 284 (150-450) k/uL Neutrophils % 64 % Lymphocytes % 26 % Monocytes % 5 % Eosinophils % 3 % Basophils % 0 % Neutrophils # 5.2 (1.3-7.7) k/uL Lymphocytes # 2.1 (1.0-4.8) k/uL Monocytes # 0.4 (0-1.0) k/uL Eosinophils # 0.3 (0-0.7) k/uL Basophils # 0.0 (0-0.2) k/uL PT (9.0-12.0) sec INR (<1.1) APTT (22.0-30.0) sec Sodium 141 (137-145) mmol/L Potassium 4.4 (3.5-5.1) mmol/L Chloride 106 (98-107) mmol/L Carbon Dioxide 26 (22-30) mmol/L Anion Gap 9 mmol/L BUN 14 (9-20) mg/dL Creatinine 1.16 (0.66-1.25) mg/dL Est GFR (MDRD) Af Amer >60 (>60 ml/min/1.73 sqM) Est GFR (MDRD) Non-Af >60 (>60 ml/min/1.73 sqM) Glucose 93 (74-99) mg/dL Calcium 10.0 (8.4-10.2) mg/dL Magnesium 2.3 (1.6-2.3) mg/dL Total Bilirubin 0.6 (0.2-1.3) mg/dL AST 19 (17-59) U/L ALT 24 (21-72) U/L Alkaline Phosphatase 45 (38-126) U/L Total Creatine Kinase 139 (55-170) U/L CK-MB (CK-2) 1.3 (0.0-2.4) ng/mL CK-MB (CK-2) Rel Index 0.9 Troponin I <0.012 (0.000-0.034) ng/mL Total Protein 7.6 (6.3-8.2) g/dL Albumin 4.8 (3.5-5.0) g/dL Amylase 82 (30-110) U/L Lipase 99 (23-300) U/L Urine Color Urine Appearance (Clear) Urine pH (5.0-8.0) Ur Specific [place] (1.001-1.035) Urine Protein (Negative) Urine Glucose (UA) (Negative) Urine Ketones (Negative) Urine Blood (Negative) Urine Nitrite (Negative) Urine Bilirubin (Negative) Urine Urobilinogen (<2.0) mg/dL Ur Leukocyte Esterase (Negative) 04/25/17 04/25/17 Range/Units 21:00 21:13 WBC (3.8-10.6) k/uL RBC (4.30-5.90) m/uL Hgb (13.0-17.5) gm/dL Hct (39.0-53.0) % MCV (80.0-100.0) fL MCH (25.0-35.0) pg MCHC (31.0-37.0) g/dL RDW (11.5-15.5) % Plt Count (150-450) k/uL Neutrophils % % Lymphocytes % % Monocytes % % Eosinophils % % Basophils % % Neutrophils # (1.3-7.7) k/uL Lymphocytes # (1.0-4.8) k/uL Monocytes # (0-1.0) k/uL Eosinophils # (0-0.7) k/uL Basophils # (0-0.2) k/uL PT 10.7 (9.0-12.0) sec INR 1.1 (<1.1) APTT 24.8 (22.0-30.0) sec Sodium (137-145) mmol/L Potassium (3.5-5.1) mmol/L Chloride (98-107) mmol/L Carbon Dioxide (22-30) mmol/L Anion Gap mmol/L BUN (9-20) mg/dL Creatinine (0.66-1.25) mg/dL Est GFR (MDRD) Af Amer (>60 ml/min/1.73 sqM) Est GFR (MDRD) Non-Af (>60 ml/min/1.73 sqM) Glucose (74-99) mg/dL Calcium (8.4-10.2) mg/dL Magnesium (1.6-2.3) mg/dL Total Bilirubin (0.2-1.3) mg/dL AST (17-59) U/L ALT (21-72) U/L Alkaline Phosphatase (38-126) U/L Total Creatine Kinase (55-170) U/L CK-MB (CK-2) (0.0-2.4) ng/mL CK-MB (CK-2) Rel Index Troponin I (0.000-0.034) ng/mL Total Protein (6.3-8.2) g/dL Albumin (3.5-5.0) g/dL Amylase (30-110) U/L Lipase (23-300) U/L Urine Color Yellow Urine Appearance Clear (Clear) Urine pH 8.0 (5.0-8.0) Ur Specific [place] 1.010 (1.001-1.035) Urine Protein Negative (Negative) Urine Glucose (UA) Negative (Negative) Urine Ketones Negative (Negative) Urine Blood Negative (Negative) Urine Nitrite Negative (Negative) Urine Bilirubin Negative (Negative) Urine Urobilinogen <2.0 (<2.0) mg/dL Ur Leukocyte Esterase Negative (Negative) Disposition Clinical Impression: Urinary retention Disposition: HOME SELF-CARE Condition: Stable Instructions: Urinary Retention in Men (ED) Additional Instructions: Please use medication as discussed. Please follow up with family doctor if symptoms have not improved over the next two days. Please return to the emergency room if your symptoms increase or worsen or for any other concerns. Referrals: Tami Chan MD [Primary Care Provider] - 1-2 days Joey Corona MD [STAFF PHYSICIAN] - 1-2 days Time of Disposition: 22:11
[2017-04-25 21:21] LABS: Appearance,Urine Clear (Clear); Bilirubin,Urine Negative (Negative); Glucose,Urine (UA) Negative (Negative); Ketones,Urine Negative (Negative); Leukocyte Esterase,Urine Negative (Negative); Nitrite,Urine Negative (Negative); Protein,Urine Negative (Negative); UA Billing (MACRO vs. MICRO) CHEM; Urobilinogen,Urine <2.0 mg/dL (<2.0)
[2017-04-25] MEDS ORDERED: diphenhydrAMINE 50 MG/ML 1 ML VIAL IVP STA (21:21)
--- NOTE | 2017-04-25 21:25 | CT ---
EXAMINATION TYPE: CT brain wo con DATE OF EXAM: 04/25/2017 COMPARISON: 01/31/2017 HISTORY: Dizziness and tremors after new medication. CT DLP: 989.7 mGycm Automated exposure control for dose reduction was used. FINDINGS: Ventricles and sulci appear normal. There is no mass effect nor midline shift. There is no sign of in tracranial hemorrhage. The calvarium is intact. IMPRESSION: Negative unenhanced head CT scan. No change.
--- NOTE | 2017-04-25 21:26 | XR ---
EXAMINATION TYPE: XR chest 2V DATE OF EXAM: 04/25/2017 COMPARISON: 12/26/2016 HISTORY: Short of breath TECHNIQUE: Frontal and lateral views of the chest are obtained. FINDINGS: Heart and mediastinum are normal. Lungs are clear. Diaphragm is normal. Bony thorax is int act. IMPRESSION: Normal chest. No change.
[2017-04-25 21:32] LABS: ALT 24 U/L (21-72); AST 19 U/L (17-59); Alkaline Phosphatase 45 U/L (38-126); Amylase 82 U/L (30-110); Anion Gap 9 mmol/L; Blood Urea Nitrogen 14 mg/dL (9-20); Carbon Dioxide 26 mmol/L (22-30); Chloride 106 mmol/L (98-107); Glucose 93 mg/dL (74-99); Magnesium 2.3 mg/dL (1.6-2.3); Non-African American GFR(MDRD) >60 (>60 ml/min/1.73 sqM); Potassium 4.4 mmol/L (3.5-5.1); Sodium 141 mmol/L (137-145); Total Bilirubin 0.6 mg/dL (0.2-1.3); Total Protein 7.6 g/dL (6.3-8.2)
[2017-04-25 21:34] LABS: Creatine Kinase 139 U/L (55-170)
[2017-04-25 21:46] LABS: Creatine Kinase MB 1.3 ng/mL (0.0-2.4); Troponin I <0.012 ng/mL (0.000-0.034)
[2017-04-25 21:49] VITALS: PULSE 74
[2017-04-25 23:04] VITALS: BP 131/76; RESP 18; TEMP 98
== END 2017-04-25 23:11 | disposition home or self-care (01) ==
LOC: EC 19:44
DX: R33.9 Retention of urine, unspecified (principal); E78.5 Hyperlipidemia, unspecified; Z87.891 Personal history of nicotine dependence; Z91.040 Latex allergy status; Z88.5 Allergy status to narcotic agent; Z88.6 Allergy status to analgesic agent; Z88.8 Allergy status to other drugs, medicaments and biological substances; Z79.899 Other long term (current) drug therapy
CPT/HCPCS: 99285; 51702; 96374; 96361 ×2; 51798; 36415; 93005; 80053; 82150; 82550; 82553; 83690; 83735; 84484; 85025; 85610; 85730; 81003; 71020; 70450; J1200

== ENCOUNTER 2017-04-28 21:40 | Emergency (ER) | payer MEDICARE, OTHER ==
--- NOTE | 2017-04-28 22:19 | ED ---
General Adult HPI - General Chief complaint: Allergic Reaction Stated complaint: Allergic reaction to meds Time Seen by Provider: 04/28/17 21:50 Source: patient, family, RN notes reviewed Mode of arrival: ambulatory Limitations: no limitations - History of Present Illness Initial comments: This is a 27-year-old male who presents emergency Department stating his heart feels like it's racing and he has a warm sensation over his whole body. Patient states he took Flomax for the second time today and that is the only new drug that this evening. Patient states on multiple medications but all of which she has been on for a while. Patient denies any shortness of breath or difficulty breathing. Patient states it just feels as though his heart racing his whole body is warm. Patient denies any fever chills or cough recently. Patient denies any chest pain. Patient states this started about 6:30 tonight about 20 minutes after he took his pills. Patient denies any abdominal pain patient denies nausea vomiting diarrhea. Patient denies headache patient denies lightheadedness dizziness or near syncopal episode. - Related Data Home Medications Medication Instructions Recorded Confirmed Fenofibrate [Lofibra] 54 mg PO HS 09/06/16 04/28/17 [place] Carbonate 300 mg PO TID 09/06/16 04/28/17 Albuterol Inhaler [Ventolin Hfa 2 puff INHALATION RT-Q4H PRN 11/28/16 04/28/17 Inhaler] Montelukast [Singulair] 10 mg PO DAILY 12/23/16 04/28/17 QUEtiapine [SEROquel] 800 mg PO HS 12/23/16 04/28/17 Cholecalciferol [Vitamin D3] 5,000 unit PO DAILY 04/02/17 04/28/17 Cyanocobalamin (Vitamin B-12) 1,000 mcg PO DAILY 04/15/17 04/28/17 [Vitamin B-12] Levomefolate Calcium 15 mg PO DAILY 04/15/17 04/28/17 [l-Methylfolate Calcium] Albuterol Nebulized [Ventolin 2.5 mg INHALATION RT-Q6H PRN 04/25/17 04/28/17 Nebulized] Omeprazole 40 mg PO DAILY 04/28/17 04/28/17 Previous Rx's Medication Instructions Recorded Diazepam [Valium] 5 mg PO DAILY PRN #30 tab 04/20/17 Allergies Allergy/AdvReac Type Severity Reaction Status Date / Time Latex, Natural Rubber Allergy Severe Rash/Hives/ Verified 04/28/17 21:53 Dyspnea baclofen Allergy Erythema Verified 04/28/17 21:53 Multiforme Major bupropion HCl Allergy Anaphylaxis Verified 04/28/17 21:53 [From Wellbutrin] codeine Allergy Unknown Verified 04/28/17 21:53 divalproex sodium Allergy Swelling Verified 04/28/17 21:53 [From Depakote] fluticasone furoate Allergy Anaphylaxis Verified 04/28/17 21:53 [From Breo Ellipta] gabapentin [From Neurontin] Allergy Anaphylaxis Verified 04/28/17 21:53 hydrocodone Allergy Unknown Verified 04/28/17 21:53 lamotrigine [From Lamictal] Allergy Swelling Verified 04/28/17 21:53 methadone Allergy Unknown Verified 04/28/17 21:53 NSAIDS (Non-Steroidal Allergy Rash/Hives Verified 04/28/17 21:53 Anti-Inflamma vilanterol Allergy Anaphylaxis Verified 04/28/17 21:53 [From Breo Ellipta] Review of Systems ROS Statement: Those systems with pertinent positive or pertinent negative responses have been documented in the HPI. ROS Other: All systems not noted in ROS Statement are negative. Past Medical History Past Medical History: Fibromyalgia, GERD/Reflux, Hyperlipidemia, Osteoarthritis (OA), Sleep Apnea/CPAP/BIPAP Additional Past Medical History / Comment(s): IRRITABLE BOWEL, PAST ANEMIA CHRONIC BACK PAIN/DDD LUMBAR REGION,KIDNEY STONE asperger's syndrome, chronic heat rash to R-arm, R-torso and back. History of Any Multi-Drug Resistant Organisms: None Reported Past Surgical History: Adenoidectomy, Appendectomy, Tonsillectomy Additional Past Surgical History / Comment(s): UPPP, VASECTOMY, SX FOR UNDESCENDED TESTICLE RT SIDE,EGD W/BX(NEG), GRAFTS ON GUMS YOUTH,LUMBAR FACET ARTHROPATHY LEFT L4,L5 SACRAL ALA MEDIAL BRACH RADIAL FREQUENCY ABLATION Past Anesthesia/Blood Transfusion Reactions: No Reported Reaction Additional Past Anesthesia/Blood Transfusion Reaction / Comment(s): CLAUSTERPHOBIA Past Psychological History: Anxiety, Bipolar, Depression, PTSD, Schizoaffective Disorder, Schizophrenia Additional Psychological History / Comment(s): PYSCHOSIS, AUTISM Smoking Status: Current every day smoker Past Alcohol Use History: Occasional Additional Past Alcohol Use History / Comment(s): Patient was a smoker for 7 years and quit one and half years ago. He states he quit chewing tobacco 1 year ago. He denies any medical marijuana, marijuana or street drug use. He denies any alcohol use. Patient is single and does not have any children. Past Drug Use History: None Reported - Past Family History Father Family Medical History: Diabetes Mellitus Additional Family Medical History / Comment(s): Patient's father is alive with no major medical problems. Mother Family Medical History: Fibromyalgia, Thyroid Disorder Additional Family Medical History / Comment(s): IBS Sister(s) Additional Family Medical History / Comment(s): depression General Exam - General Exam Comments Initial Comments: GENERAL: Patient is well-developed and well-nourished. Patient is nontoxic and well- hydrated and is in mild distress. ENT: Neck is soft and supple. No significant lymphadenopathy is noted. Oropharynx is clear. Moist mucous membranes. Neck has full range of motion without eliciting any pain. EYES: The sclera were anicteric and conjunctiva were pink and moist. Extraocular movements were intact and pupils were equal round and reactive to light. Eyelids were unremarkable. PULMONARY: Unlabored respirations. Good breath sounds bilaterally. No audible rales rhonchi or wheezing was noted. CARDIOVASCULAR: Patient is tachycardic at 150 beats a minute ABDOMEN: Soft and nontender with normal bowel sounds. SKIN: Skin is clear with no lesions or rashes and otherwise unremarkable. NEUROLOGIC: Patient is alert and oriented x3. Cranial nerves II through XII are grossly intact. Motor and sensory are also intact. Normal speech, volume and content. Symmetrical smile. MUSCULOSKELETAL: Normal extremities with adequate strength and full range of motion. No lower extremity swelling or edema. No calf tenderness. LYMPHATICS: No significant lymphadenopathy is noted PSYCHIATRIC: Patient has mild anxiety Limitations: no limitations Course Vital Signs 04/28/17 04/28/17 04/28/17 21:49 22:21 22:47 Temperature 97.6 F Pulse Rate 140 H 112 H Pulse Rate [ 107 H Pulse Oximetery ] Respiratory 20 18 Rate Blood Pressure 126/80 138/90 O2 Sat by Pulse 100 99 Oximetry 04/28/17 04/29/17 22:55 00:02 Temperature Pulse Rate 103 H 108 H Pulse Rate [ Pulse Oximetery ] Respiratory 18 18 Rate Blood Pressure 123/87 142/90 O2 Sat by Pulse 99 100 Oximetry Medical Decision Making - Medical Decision Making EKG shows sinus tachycardia at 170 bpm SC interval 190 QRS is under 26 QT interval 348 QTC is 485. Patient's EKG shows no ST segment elevation or depression or T wave normalities are noted. There was a point the patient was tachycardia away at 150 beats a minute however we were unable to get a EKG while that was occurring. I will back into the room to reevaluate the patient he was asymptomatic. - Lab Data Result diagrams: 04/28/17 22:18 04/28/17 22:18 Lab Results 04/28/17 04/28/17 04/28/17 Range/Units 22:18 22:18 22:18 WBC 5.6 (3.8-10.6) k/uL RBC 4.29 L (4.30-5.90) m/uL Hgb 13.3 (13.0-17.5) gm/dL Hct 39.9 (39.0-53.0) % MCV 92.9 (80.0-100.0) fL MCH 31.1 (25.0-35.0) pg MCHC 33.5 (31.0-37.0) g/dL RDW 13.7 (11.5-15.5) % Plt Count 215 (150-450) k/uL Neutrophils % 53 % Lymphocytes % 37 % Monocytes % 5 % Eosinophils % 3 % Basophils % 0 % Neutrophils # 3.0 (1.3-7.7) k/uL Lymphocytes # 2.0 (1.0-4.8) k/uL Monocytes # 0.3 (0-1.0) k/uL Eosinophils # 0.2 (0-0.7) k/uL Basophils # 0.0 (0-0.2) k/uL PT (9.0-12.0) sec INR (<1.1) APTT (22.0-30.0) sec D-Dimer (<0.60) mg/L FEU Sodium 142 (137-145) mmol/L Potassium 4.2 (3.5-5.1) mmol/L Chloride 107 (98-107) mmol/L Carbon Dioxide 26 (22-30) mmol/L Anion Gap 9 mmol/L BUN 16 (9-20) mg/dL Creatinine 1.10 (0.66-1.25) mg/dL Est GFR (MDRD) Af Amer >60 (>60 ml/min/1.73 sqM) Est GFR (MDRD) Non-Af >60 (>60 ml/min/1.73 sqM) Glucose 110 H (74-99) mg/dL Calcium 10.3 H (8.4-10.2) mg/dL Magnesium 2.1 (1.6-2.3) mg/dL Total Bilirubin 0.4 (0.2-1.3) mg/dL AST 24 (17-59) U/L ALT 31 (21-72) U/L Alkaline Phosphatase 48 (38-126) U/L Total Creatine Kinase 354 H (55-170) U/L CK-MB (CK-2) 5.2 H* (0.0-2.4) ng/mL CK-MB (CK-2) Rel Index 1.5 Troponin I <0.012 (0.000-0.034) ng/mL Total Protein 6.8 (6.3-8.2) g/dL Albumin 4.5 (3.5-5.0) g/dL Urine Opiates Screen (NotDetected) Ur Oxycodone Screen (NotDetected) Urine Methadone Screen (NotDetected) Ur Propoxyphene Screen (NotDetected) Ur Barbiturates Screen (NotDetected) U Tricyclic Antidepress (NotDetected) Ur Phencyclidine Scrn (NotDetected) Ur Amphetamines Screen (NotDetected) U Methamphetamines Scrn (NotDetected) U Benzodiazepines Scrn (NotDetected) [place] 1.0 mmol/L Urine Cocaine Screen (NotDetected) U Marijuana (THC) Screen (NotDetected) 04/28/17 04/28/17 Range/Units 22:18 22:18 WBC (3.8-10.6) k/uL RBC (4.30-5.90) m/uL Hgb (13.0-17.5) gm/dL Hct (39.0-53.0) % MCV (80.0-100.0) fL MCH (25.0-35.0) pg MCHC (31.0-37.0) g/dL RDW (11.5-15.5) % Plt Count (150-450) k/uL Neutrophils % % Lymphocytes % % Monocytes % % Eosinophils % % Basophils % % Neutrophils # (1.3-7.7) k/uL Lymphocytes # (1.0-4.8) k/uL Monocytes # (0-1.0) k/uL Eosinophils # (0-0.7) k/uL Basophils # (0-0.2) k/uL PT 10.6 (9.0-12.0) sec INR 1.1 (<1.1) APTT 23.0 (22.0-30.0) sec D-Dimer <0.17 (<0.60) mg/L FEU Sodium (137-145) mmol/L Potassium (3.5-5.1) mmol/L Chloride (98-107) mmol/L Carbon Dioxide (22-30) mmol/L Anion Gap mmol/L BUN (9-20) mg/dL Creatinine (0.66-1.25) mg/dL Est GFR (MDRD) Af Amer (>60 ml/min/1.73 sqM) Est GFR (MDRD) Non-Af (>60 ml/min/1.73 sqM) Glucose (74-99) mg/dL Calcium (8.4-10.2) mg/dL Magnesium (1.6-2.3) mg/dL Total Bilirubin (0.2-1.3) mg/dL AST (17-59) U/L ALT (21-72) U/L Alkaline Phosphatase (38-126) U/L Total Creatine Kinase (55-170) U/L CK-MB (CK-2) (0.0-2.4) ng/mL CK-MB (CK-2) Rel Index Troponin I (0.000-0.034) ng/mL Total Protein (6.3-8.2) g/dL Albumin (3.5-5.0) g/dL Urine Opiates Screen Not Detected (NotDetected) Ur Oxycodone Screen Not Detected (NotDetected) Urine Methadone Screen Not Detected (NotDetected) Ur Propoxyphene Screen Not Detected (NotDetected) Ur Barbiturates Screen Not Detected (NotDetected) U Tricyclic Antidepress Detected H (NotDetected) Ur Phencyclidine Scrn Not Detected (NotDetected) Ur Amphetamines Screen Not Detected (NotDetected) U Methamphetamines Scrn Not Detected (NotDetected) U Benzodiazepines Scrn Detected H (NotDetected) [place] mmol/L Urine Cocaine Screen Not Detected (NotDetected) U Marijuana (THC) Screen Not Detected (NotDetected) Disposition Clinical Impression: Adverse reaction to drug Disposition: HOME SELF-CARE Instructions: Adverse Drug Reaction (ED) Additional Instructions: Patient should stop the Flomax and follow up with primary medical care doctor. Referrals: Chapin Isabel MD [Primary Care Provider] - 1-2 days Time of Disposition: 00:04
[2017-04-28 22:22] VITALS: RESP 18
[2017-04-28 22:43] LABS: Basophils % (A) 0 %; CH 30.7; CHCM 33.2; Eosinophils # (A) 0.2 k/uL (0-0.7); Eosinophils % (A) 3 %; HCT 39.9 % (39.0-53.0); HDW 2.42; HGB 13.3 gm/dL (13.0-17.5); Luc # (Auto) 0.12; Luc % (Auto) 2; Lymphocytes % (A) 37 %; MCH 31.1 pg (25.0-35.0); MCHC 33.5 g/dL (31.0-37.0); MCV 92.9 fL (80.0-100.0); Mean Platelet Volume 8.1; Monocytes # (A) 0.3 k/uL (0-1.0); Monocytes % (A) 5 %; Neutrophils % (A) 53 %; RBC 4.29 m/uL (4.30-5.90); RDW 13.7 % (11.5-15.5); WBC 5.6 k/uL (3.8-10.6); WBC (Perox) 5.55
[2017-04-28 22:51] LABS: ALT 31 U/L (21-72); AST 24 U/L (17-59); Alkaline Phosphatase 48 U/L (38-126); Anion Gap 9 mmol/L; Blood Urea Nitrogen 16 mg/dL (9-20); Calcium 10.3 mg/dL (8.4-10.2); Carbon Dioxide 26 mmol/L (22-30); Chloride 107 mmol/L (98-107); Glucose 110 mg/dL (74-99); Magnesium 2.1 mg/dL (1.6-2.3); Non-African American GFR(MDRD) >60 (>60 ml/min/1.73 sqM); Potassium 4.2 mmol/L (3.5-5.1); Sodium 142 mmol/L (137-145); Total Bilirubin 0.4 mg/dL (0.2-1.3); Total Protein 6.8 g/dL (6.3-8.2)
[2017-04-28 22:56] LABS: INR 1.1 (<1.1); Prothrombin Time 10.6 sec (9.0-12.0)
[2017-04-28 23:00] LABS: Creatine Kinase 354 U/L (55-170)
[2017-04-28 23:13] LABS: Troponin I <0.012 ng/mL (0.000-0.034)
[2017-04-28 23:14] LABS: Creatine Kinase MB 5.2 ng/mL (0.0-2.4)
--- NOTE | 2017-04-28 23:55 | XR ---
EXAM: XR Chest, 2 Views CLINICAL HISTORY: Reason: Chest Pain TECHNIQUE: Frontal and lateral views of the chest. COMPARISON: Compared to 04/25/17. FINDINGS: Lungs: Interval development of minimal left lower lobe atelectasis. No consolidation. 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 Heart: Unremarkable. No cardiomegaly. Mediastinum: Unremarkable. Bones/joints: Unremarkable. IMPRESSION: Interval development of minimal left lower lobe atelectasis.
[2017-04-29 00:03] VITALS: BP 142/90; PULSE 108
[2017-04-29 00:38] VITALS: TEMP 98.8
== END 2017-04-29 00:37 | disposition home or self-care (01) ==
LOC: EC 21:40
DX: R00.2 Palpitations (principal); T44.6X5A Adverse effect of alpha-adrenoreceptor antagonists, initial encounter; K21.9 Gastro-esophageal reflux disease without esophagitis; E78.5 Hyperlipidemia, unspecified; F31.9 Bipolar disorder, unspecified; F20.9 Schizophrenia, unspecified; F17.200 Nicotine dependence, unspecified, uncomplicated; Z91.040 Latex allergy status; Z88.1 Allergy status to other antibiotic agents; Z88.5 Allergy status to narcotic agent; Z88.6 Allergy status to analgesic agent; Z88.8 Allergy status to other drugs, medicaments and biological substances; Z79.899 Other long term (current) drug therapy
CPT/HCPCS: 36415; 71020; 80053; 80178; 80306; 82550; 82553; 83735; 84484; 85025; 85379; 85610; 85730; 93005; 99285

== ENCOUNTER → 2017-06-28 | Outpatient (CLI) | payer MEDICARE, MEDICAID ==
[2017-06-28 11:39] LABS: Blood Urea Nitrogen 12 mg/dL (9-20); Lithium 0.7 mmol/L; Non-African American GFR(MDRD) >60 (>60 ml/min/1.73 sqM)
== END | disposition home or self-care (01) ==
LOC: LABWHC1 08:03
PROVIDERS: ATTEND Psychiatry & Neurology Psychiatry
DX: Z51.81 Encounter for therapeutic drug level monitoring (principal); Z79.899 Other long term (current) drug therapy
CPT/HCPCS: 36415; 80178; 82565; 84439; 84443; 84520

== ENCOUNTER → 2018-01-29 | Outpatient (CLI) | payer MEDICARE, OTHER ==
[2018-01-29 10:03] LABS: Blood Urea Nitrogen 13 mg/dL (9-20)
[2018-01-29 10:20] LABS: T4, Free (Free Thyroxine) 1.07 ng/dL (0.78-2.19)
== END | disposition home or self-care (01) ==
LOC: LABWHC1 08:00
PROVIDERS: ATTEND Psychiatry & Neurology Psychiatry
DX: Z51.81 Encounter for therapeutic drug level monitoring (principal); Z79.899 Other long term (current) drug therapy
CPT/HCPCS: 36415; 80178; 82565; 84439; 84443; 84520

== ENCOUNTER → 2018-07-14 | Outpatient (CLI) | payer MEDICARE, OTHER ==
--- NOTE | 2018-07-14 14:37 | MR ---
EXAMINATION TYPE: MR shoulder RT wo con DATE OF EXAM: 07/14/2018 COMPARISON: Plain film 06/27/2018 from outside institution HISTORY: Rt shoulder pain/instability x 3 months after fall TECHNIQUE: Multiplanar, multisequence imaging of the right shoulder is performed without contrast. FINDINGS: Rotator Cuff: There is some increased intrasubstance signal however the rotator cuff is intact Acromioclavicular Joint: Hypertrophic change at the acromioclavicular joint causes mass effect on the musculotendinous junction of supraspinatus. There may be a small distal acromial spur. Distal acromi on is downturned. There is fluid in the subacromial subdeltoid bursa. Glenohumeral Joint: Intact Labrum: There is some increased signal within the superior labrum axial images 11/01/2014, difficult to exclude a SLAP lesion Biceps Tendon: Normal position in the bicipital groove. Bone marrow signal: No focal abnormal marrow signal is appreciated. Other: No additional significant abnormality is appreciated. IMPRESSION: Correlate for impingement, tendinosis, no titus rotator cuff tear evident. Difficult to exclude a SLA P lesion.
== END | disposition home or self-care (01) ==
LOC: RADMRIMAIN 11:27
PROVIDERS: ATTEND Orthopaedic Surgery
DX: M25.511 Pain in right shoulder (principal); M25.311 Other instability, right shoulder

== ENCOUNTER → 2018-12-07 | Outpatient (CLI) | payer MEDICARE, OTHER ==
[2018-12-07 16:56] LABS: ALT 22 U/L (10-49); AST 27 U/L (14-35); Albumin/Globulin Ratio 3.13 (1.20-2.10); Alkaline Phosphatase 48 U/L (41-126); Calcium 9.6 mg/dL (8.7-10.3); Carbon Dioxide 28.7 mmol/L (21.6-31.8); Chloride 109 mmol/L (96-109); Cholesterol 121 mg/dL (0-200); Globulin 1.5 g/dL (1.6-3.3); Glucose 83 mg/dL (70-110); Lithium 0.9 mmol/L (1.0-1.2); Potassium 4.6 mmol/L (3.5-5.5); Sodium 142 mmol/L (135-145); Total Bilirubin 0.6 mg/dL (0.3-1.2); Total Protein 6.2 g/dL (6.2-8.2); Triglycerides <50.0 mg/dL (0.0-149.0); VLDL Calculation 9.98 mg/dL (5.00-40.00)
== END | disposition home or self-care (01) ==
LOC: LABWHC1 09:13
PROVIDERS: ATTEND Family Medicine
DX: E78.1 Pure hyperglyceridemia (principal); Z79.899 Other long term (current) drug therapy
CPT/HCPCS: 36415; 80053; 80061; 80178; 84439; 84443

== ENCOUNTER 2019-04-10 18:33 | Emergency (ER) | payer MEDICARE, OTHER ==
[2019-04-10] MEDS ORDERED: HYDROmorphone 2 MG/ML 1 ML SYRINGE IVP STA (19:39)
[2019-04-10] MEDS ORDERED: ONDANSETRON 4 MG/2 ML VIAL IVP STA (19:40)
[2019-04-10] MEDS ORDERED: RX INFO: IV CONTRAST WAS GIVEN 1 EACH MISC MISCELLANE PRN (19:47)
--- NOTE | 2019-04-10 19:51 | ED ---
Lower Extremity Injury HPI - General Chief Complaint: Extremity Injury, Lower Stated Complaint: knee injury Time Seen by Provider: 04/10/19 18:51 Source: EMS Mode of arrival: EMS Limitations: no limitations - History of Present Illness Initial Comments: 29-year-old male patient presents to the emergency department today for evaluation of severe left knee pain. Patient states that about 5:30 this afternoon he was pushing his lawnmower back into the shed going up a ramp when his knee hyperextended. Patient states that he had sudden severe pain and had a fall from this. He denies hitting his head or losing consciousness during the fall but states he was having severe pain to the knee was unable to stand or ambulate. Patient states he is still having pain especially to the medial aspect of the knee. Denies any numbness or tingling to the extremity. He denies any previous knee injury. Denies any other symptoms or concerns. Patient denies any headache, neck pain, back pain, chest pain, shortness of breath, dizziness, weakness, abdominal pain, nausea, vomiting, or difficulties with bowel movements or urination. - Related Data Home Medications Medication Instructions Recorded Confirmed Fenofibrate [Lofibra] 54 mg PO HS 09/06/16 04/28/17 [place] Carbonate 300 mg PO TID 09/06/16 04/28/17 Albuterol Inhaler [Ventolin Hfa 2 puff INHALATION RT-Q4H PRN 11/28/16 04/28/17 Inhaler] Montelukast [Singulair] 10 mg PO DAILY 12/23/16 04/28/17 QUEtiapine [SEROquel] 800 mg PO HS 12/23/16 04/28/17 Cholecalciferol [Vitamin D3 (25 5,000 unit PO DAILY 04/02/17 04/28/17 Mcg = 1000 Iu)] Cyanocobalamin (Vitamin B-12) 1,000 mcg PO DAILY 04/15/17 04/28/17 [Vitamin B-12] Levomefolate Calcium 15 mg PO DAILY 04/15/17 04/28/17 [l-Methylfolate Calcium] Albuterol Nebulized [Ventolin 2.5 mg INHALATION RT-Q6H PRN 04/25/17 04/28/17 Nebulized] Omeprazole 40 mg PO DAILY 04/28/17 04/28/17 Previous Rx's Medication Instructions Recorded Diazepam [Valium] 5 mg PO DAILY PRN #30 tab 04/20/17 predniSONE 50 mg PO DAILY #4 tab 09/26/17 Hydrocodone/Acetaminophen [[place] 1 tab PO Q6HR PRN #12 tab 04/10/19 5-325] Allergies Allergy/AdvReac Type Severity Reaction Status Date / Time Latex, Natural Rubber Allergy Severe Rash/Hives/ Verified 04/10/19 18:46 Dyspnea baclofen Allergy Erythema Verified 04/10/19 18:46 Multiforme Major bupropion HCl Allergy Anaphylaxis Verified 04/10/19 18:46 [From Wellbutrin] codeine Allergy Unknown Verified 04/10/19 18:46 divalproex sodium Allergy Swelling Verified 04/10/19 18:46 [From Depakote] fluticasone furoate Allergy Anaphylaxis Verified 04/10/19 18:46 [From Breo Ellipta] gabapentin [From Neurontin] Allergy Anaphylaxis Verified 04/10/19 18:46 hydrocodone Allergy Unknown Verified 04/10/19 18:46 lamotrigine [From Lamictal] Allergy Swelling Verified 04/10/19 18:46 methadone Allergy Unknown Verified 04/10/19 18:46 NSAIDS (Non-Steroidal Allergy Rash/Hives Verified 04/10/19 18:46 Anti-Inflamma vilanterol Allergy Anaphylaxis Verified 04/10/19 18:46 [From Breo Ellipta] Review of Systems ROS Statement: Those systems with pertinent positive or pertinent negative responses have been documented in the HPI. ROS Other: All systems not noted in ROS Statement are negative. Past Medical History Past Medical History: Fibromyalgia, GERD/Reflux, Hyperlipidemia, Osteoarthritis (OA), Sleep Apnea/CPAP/BIPAP Additional Past Medical History / Comment(s): IRRITABLE BOWEL, PAST ANEMIA CHRONIC BACK PAIN/DDD LUMBAR REGION,KIDNEY STONE asperger's syndrome, chronic heat rash to R-arm, R-torso and back. restless leg syndrome. History of Any Multi-Drug Resistant Organisms: None Reported Past Surgical History: Adenoidectomy, Appendectomy, Tonsillectomy Additional Past Surgical History / Comment(s): UPPP, VASECTOMY, SX FOR UNDESCENDED TESTICLE RT SIDE,EGD W/BX(NEG), GRAFTS ON GUMS YOUTH,LUMBAR FACET ARTHROPATHY LEFT L4,L5 SACRAL ALA MEDIAL BRACH RADIAL FREQUENCY ABLATION Past Anesthesia/Blood Transfusion Reactions: No Reported Reaction Additional Past Anesthesia/Blood Transfusion Reaction / Comment(s): CLAUSTERPHOBIA Past Psychological History: Anxiety, Bipolar, Depression, PTSD, Schizoaffective Disorder, Schizophrenia Smoking Status: Current every day smoker Past Alcohol Use History: Occasional Past Drug Use History: None Reported - Past Family History Father Family Medical History: Diabetes Mellitus Additional Family Medical History / Comment(s): Patient's father is alive with no major medical problems. Mother Family Medical History: Fibromyalgia, Thyroid Disorder Additional Family Medical History / Comment(s): IBS Sister(s) Additional Family Medical History / Comment(s): depression General Exam Limitations: no limitations General appearance: alert, in no apparent distress, other (This is a well- developed, well-nourished adult male patient in no acute distress. Vital signs upon presentation are temperature 98.6F, pulse 98, respirations 16, blood pressure 128/80, pulse ox 99% on room air.) Eye exam: Present: normal appearance, PERRL, EOMI. Absent: scleral icterus, conjunctival injection, periorbital swelling ENT exam: Present: normal exam, normal oropharynx, mucous membranes moist Respiratory exam: Present: normal lung sounds bilaterally. Absent: respiratory distress, wheezes, rales, rhonchi, stridor Cardiovascular Exam: Present: regular rate, normal rhythm, normal heart sounds. Absent: systolic murmur, diastolic murmur, rubs, gallop, clicks GI/Abdominal exam: Present: soft, normal bowel sounds. Absent: distended, tenderness, guarding, rebound, rigid Extremities exam: Present: full ROM, tenderness (Tenderness over the anterior and posterior aspect of the knee), normal capillary refill, other (There is mild soft tissue swelling surrounding the left knee. Skin is pink, warm, dry. Cap refills less than 3 seconds. Post tibial pulses 2+, pedal pulse is 1+). Absent: normal inspection, pedal edema, joint swelling, calf tenderness Back exam: Present: normal inspection, other (Nontender, no step-off, no deformity to firm midline palpation of the thoracic and lumbar vertebrae. Full range of motion without pain or limitation.). Absent: vertebral tenderness Neurological exam: Present: alert, oriented X3, CN II-XII intact Psychiatric exam: Present: normal affect, normal mood Skin exam: Present: warm, dry, intact, normal color. Absent: rash Course Vital Signs 04/10/19 04/10/19 18:42 22:56 Temperature 98.6 F 98.7 F Pulse Rate 98 87 Respiratory 16 18 Rate Blood Pressure 128/80 127/78 O2 Sat by Pulse 99 98 Oximetry Medical Decision Making - Medical Decision Making 29-year-old male patient presents to the emergency department today for evaluation of left knee pain. Patient reports hyperextension injury prior to arrival. Physical examination did reveal some mild soft tissue swelling devaughn rounding the left knee. There is anterior and posterior knee tenderness. Patient is unable to bend the knee. He does have full extension. CT angiography of the knee was obtained and showed fluid fluid level and joint effusion which demonstrates significant injury. There is no fracture line noted however radiologist suspects an occult fracture. Patient's neurovascular status is intact. Patient was placed in a knee immobilizer. He'll be given prescription for crutches and instructed to remain nonweightbearing until cleared by orthopedics. He is instructed to follow-up with orthopedics for recheck as soon as possible. Return parameters discussed in detail. Patient verbalizes understanding and agrees this plan. - Radiology Data Radiology results: report reviewed, image reviewed CT angiography of the left lower trauma he was obtained. Impression by Dr. Bowser shows no vascular abnormality. There is fluid fluid level in the knee joint effusion suggest a significant injury. I suspect occult fracture. No fracture line demonstrated. Disposition Clinical Impression: Left knee pain, Effusion, left knee, Internal derangement of left knee Disposition: HOME SELF-CARE Condition: Good Instructions (If sedation given, give patient instructions): Swollen Knee Joint (ED), Knee Pain (ED), Knee Immobilizer (ED) Additional Instructions: Remain nonweightbearing and use crutches when ambulating. Keep knee immobilizer in place until cleared by orthopedics. Take medications as directed. Follow-up with your primary care physician for recheck in 1-2 days. Return to the emergency department immediately for any new, worsening, or concerning symptoms. Prescriptions: Hydrocodone/Acetaminophen [[place] 5-325] 1 tab PO Q6HR PRN #12 tab PRN Reason: Pain Is patient prescribed a controlled substance at d/c from ED?: Yes When asked, does pt state using other controlled substances?: No If prescribed controlled substance>3 days was MAPS reviewed?: Prescribed <3 Days If opioid is for acute pain is fill amount 7 days or less?: Yes If Rx opioid, was Start Talking consent form obtained?: Yes Referrals: Diane Lerner MD [Primary Care Provider] - 1-2 days Selena Salmeron DO [Doctor of Osteopathic Medicine] - 1-2 days Time of Disposition: 22:39
--- NOTE | 2019-04-10 22:08 | CT ---
EXAMINATION TYPE: CT angio lower extremity LT DATE OF EXAM: 04/10/2019 9:35 PM COMPARISON: HISTORY: Pt hyperextended LT knee while pushing a tractor CT DLP: 1589.2 mGycm Automated exposure control for dose reduction was used. TECHNIQUE: Performed with IV Contrast, patient injected with 100 mL of Isovue 370. . FINDINGS: There are 3-D post processed images. There is flow demonstrated in the abdominal aorta and the iliac and femoral arteries. Femoral arterie s are widely patent. There is patency of the popliteal artery and tibial artery. There is patency of the tibial artery trifurcation. There is arterial flow in the anterior and posterior tibial arteries at the ankle. There is no sign of contrast extravasation. I see no pathologic fluid collection. There is knee joint effusion with fluid fluid level. There is ununited tibial tubercle. The proximal tibia is otherwise intact. Proximal fibula is intact. Distal femur is intact. I see no fracture line. The patella is intact. IMPRESSION: NO VASCULAR ABNORMALITY. THERE IS FLUID FLUID LEVEL IN THE KNEE JOINT EFFUSION THAT SUGGESTS A SIGNIFICANT INJURY. I SUSPECT O CCULT FRACTURE. NO FRACTURE LINE DEMONSTRATED.
[2019-04-10 22:57] VITALS: BP 127/78; PULSE 87; RESP 18; TEMP 98.7
== END 2019-04-10 22:56 | disposition home or self-care (01) ==
LOC: EC 18:33
DX: S89.92XA Unspecified injury of left lower leg, initial encounter (principal); M25.462 Effusion, left knee; K21.9 Gastro-esophageal reflux disease without esophagitis; K58.9 Irritable bowel syndrome, unspecified; D64.9 Anemia, unspecified; G47.30 Sleep apnea, unspecified; Z99.89 Dependence on other enabling machines and devices; F31.9 Bipolar disorder, unspecified; F43.10 Post-traumatic stress disorder, unspecified; F41.9 Anxiety disorder, unspecified; F20.9 Schizophrenia, unspecified; F17.200 Nicotine dependence, unspecified, uncomplicated; Z79.899 Other long term (current) drug therapy; Z91.040 Latex allergy status; Z88.6 Allergy status to analgesic agent; Z88.5 Allergy status to narcotic agent; Z88.8 Allergy status to other drugs, medicaments and biological substances; X50.1XXA Overexertion from prolonged static or awkward postures, initial encounter
CPT/HCPCS: 73706; 99284; 96374; 96375; L1830; J1170; J2405; Q9967

== ENCOUNTER → 2019-07-03 | Outpatient (CLI) | payer MEDICARE, OTHER ==
[2019-07-03 09:27] LABS: Basophils % (A) 0 %; Eosinophils # (A) 0.3 k/uL (0-0.7); Eosinophils % (A) 5 %; HGB 14.5 gm/dL (13.0-17.5); Lymphocytes # (A) 1.6 k/uL (1.0-4.8); Lymphocytes % (A) 28 %; MCH 30.5 pg (25.0-35.0); MCHC 32.2 g/dL (31.0-37.0); MCV 94.6 fL (80.0-100.0); Mean Platelet Volume 8.1; Monocytes # (A) 0.4 k/uL (0-1.0); Monocytes % (A) 7 %; Neutrophils # (A) 3.3 k/uL (1.3-7.7); Neutrophils % (A) 59 %; Platelet Count 260 k/uL (150-450); RBC 4.76 m/uL (4.30-5.90); RDW 13.8 % (11.5-15.5); WBC 5.6 k/uL (3.8-10.6)
[2019-07-03 16:20] LABS: African American GFR (CKD) 84.3 (60.0-200.0); Albumin 4.9 g/dL (3.80-4.90); Albumin/Globulin Ratio 2.72 (1.60-3.17); Anion Gap 5.8 mmol/L (4.00-12.00); BUN/Creat Ratio 15.38 Ratio (12.00-20.00); Carbon Dioxide 26.2 mmol/L (21.6-31.8); Globulin 1.8 g/dL (1.6-3.3); Lithium 0.6 mmol/L (0.5-1.2); Potassium 4.5 mmol/L (3.5-5.5); Total Bilirubin 0.9 mg/dL (0.3-1.2); Total Protein 6.7 g/dL (6.2-8.2)
[2019-07-03 16:21] LABS: LDL Cholesterol,Calculated 70.6 mg/dL (0.0-131.0); VLDL Calculation 16.4 mg/dL (5.00-40.00)
[2019-07-03 17:19] LABS: Hemoglobin A1C 4.9 % (4.0-6.0)
== END | disposition home or self-care (01) ==
LOC: LABWHC1 08:40
PROVIDERS: ATTEND Psychiatry & Neurology Psychiatry
DX: E78.1 Pure hyperglyceridemia (principal); R11.2 Nausea with vomiting, unspecified; Z79.899 Other long term (current) drug therapy
CPT/HCPCS: 36415; 80053; 80061; 80178; 83036; 83690; 85025

== ENCOUNTER → 2019-07-26 | Outpatient (CLI) | payer MEDICARE, OTHER ==
--- NOTE | 2019-07-26 08:02 | US ---
EXAMINATION TYPE: US abdomen complete DATE OF EXAM: 07/26/2019 COMPARISON: Ultrasound dated 12/09/2015 CLINICAL HISTORY: R11.2 nausea, R10.811 RUQ abd tenderness. RUQ pain EXAM MEASUREMENTS: Liver Length: 18.0 cm Gallbladder Wall: 0.2 cm CBD: 0.4 cm Spleen: 12.7 cm Right Kidney: 10.9 x 5.2 x 5.2 cm Left Kidney: 11.2 x 4.9 x 5.3 cm Pancreas: wnl Liver: Upper limits of normal in size but homogeneous throughout. Gallbladder: wnl Evidence for sonographic Dhillon's sign: neg CBD: wnl Spleen: wnl Right Kidney: wnl Left Kidney: Cystic appearing lesion seen in lower renal sinus = 1.2 x 1.0 x 1.1 cm. Echogenic focu s with slight shadow seen in lower lateral pole - 0.4 cm Upper IVC: wnl Abd Aorta: No AAA visualized The liver is homogenous. The intrahepatic portion of the IVC and proximal abdominal aorta are within normal limits. There is no evidence of cholelithiasis. Common bile duct is unremarkable. The visu alized portions of the pancreas are homogenous. The spleen is unremarkable. Kidneys are symmetric a nd free of hydronephrosis. IMPRESSION: Incidentally noted left renal sinus cysts and nonobstructing left renal calculus measurin g 4 mm.
== END ==
LOC: RADUSWWP 07:05
PROVIDERS: ATTEND Family Medicine
DX: R11.2 Nausea with vomiting, unspecified (principal); R10.811 Right upper quadrant abdominal tenderness
CPT/HCPCS: 76700

== ENCOUNTER → 2019-08-21 | Outpatient (CLI) | payer MEDICARE, OTHER ==
--- NOTE | 2019-08-21 10:20 | NM ---
Nuclear medicine hepatobiliary scan. HISTORY: Pain. DOSAGE: The patient received 8 ounces of ensure plus and 4.8 mCi of Technetium 99m Choletec. FINDINGS: There is normal hepatic extraction. The gallbladder is seen by 25 minutes. There is bilia ry to bowel clearance by 20 minutes. Ejection fraction is 87%. IMPRESSION: 1. No evidence of cholecystitis. 2. Ejection fraction of 87% can occasionally be seen with hyperdynamic gallbladder. Correlate clinica lly.
== END | disposition home or self-care (01) ==
LOC: RADNMMAIN 06:51
PROVIDERS: ATTEND Family Medicine
DX: R10.811 Right upper quadrant abdominal tenderness (principal); R11.2 Nausea with vomiting, unspecified
CPT/HCPCS: 78226; A9537

== ENCOUNTER → 2019-11-09 | Outpatient (CLI) | payer MEDICARE, OTHER ==
--- NOTE | 2019-11-10 12:01 | CT ---
EXAMINATION TYPE: CT abdomen w con DATE OF EXAM: 11/09/2019 COMPARISON: HIDA scan 08/21/2019, prior CT 09/22/2016 HISTORY: RUQ pain CT DLP: 598.3 mGycm Automated exposure control for dose reduction was used. TECHNIQUE: Helical acquisition of images was performed from the lung bases through the top of iliac crest to include entire abdomen. CONTRAST: Performed with Oral Contrast and with IV Contrast, patient injected with 100 mL of Isovue 300. FINDINGS: LUNG BASES: No significant abnormality is appreciated. LIVER/GB: The liver is enlarged. No evident liver mass. Gallbladder is within normal limits.. PANCREAS: No significant abnormality is seen. SPLEEN: No significant abnormality is seen. ADRENALS: No significant abnormality is seen. KIDNEYS: No significant abnormality is seen. BOWEL: No significant abnormality is seen. The appendix is not included on the exam. LYMPH NODES: No significant abnormality is appreciated. OSSEOUS STRUCTURES: No significant abnormality is seen. FREE AIR: No Free Air visible ASCITES: None visible. RETROPERITONEAL ADENOPATHY: No Retroperitoneal Adenopathy visible. OTHER: IMPRESSION: HEPATOMEGALY.
== END | disposition home or self-care (01) ==
LOC: RADCTMAIN 09:21
PROVIDERS: ATTEND Surgery
DX: R16.0 Hepatomegaly, not elsewhere classified (principal)
CPT/HCPCS: 74160; Q9967

== ENCOUNTER → 2019-12-03 | Outpatient (CLI) | payer MEDICARE, OTHER ==
[2019-12-03 11:38] LABS: T4, Free (Free Thyroxine) 1.2 ng/dL (0.80-1.80)
[2019-12-03 11:43] LABS: African American GFR (CKD) 92.8 (60.0-200.0); Albumin 4.6 g/dL (3.80-4.90); Albumin/Globulin Ratio 2.88 (1.60-3.17); Anion Gap 5.8 mmol/L (4.00-12.00); Calcium 9.8 mg/dL (8.7-10.3); Carbon Dioxide 29.2 mmol/L (21.6-31.8); Globulin 1.6 g/dL (1.6-3.3); Lithium 0.5 mmol/L (0.5-1.2); Non-African American GFR(CKD) 80.1 (60.0-200.0); Potassium 4.6 mmol/L (3.5-5.5); Total Bilirubin 0.5 mg/dL (0.2-1.2); Total Protein 6.2 g/dL (6.2-8.2)
[2019-12-03 13:19] LABS: Hemoglobin A1C 4.8 % (4.0-6.0)
== END | disposition home or self-care (01) ==
LOC: LABWHC1 07:37
PROVIDERS: ATTEND Psychiatry & Neurology Psychiatry
DX: Z51.81 Encounter for therapeutic drug level monitoring (principal); Z79.899 Other long term (current) drug therapy
CPT/HCPCS: 36415; 80053; 80178; 83036; 84439; 84443

== ENCOUNTER → 2019-12-21 | Outpatient (CLI) | payer MEDICARE, OTHER ==
--- NOTE | 2019-12-22 23:59 | CT ---
EXAMINATION TYPE: CT brain wo con DATE OF EXAM: 12/21/2019 COMPARISON: 04/25/2017 HISTORY: 29-year-old man with headache, loss of hearing right ear TECHNIQUE: Examination was done in axial plane without intravenous contrast. Coronal and sagittal r econstructions performed. CT DLP: 943.8 mGycm Automated exposure control for dose reduction was used. FINDINGS: There is no evidence of acute intracranial hemorrhage, acute ischemic changes, mass, mass-effect, or extra-axial fluid collection. There is no effacement of cerebral sulci or basal subarachnoid cister ns. There is no hydrocephalus. There is no midline shift. Solorzano-white matter distinction is preserv ed. Stable focal 6 mm extra-axial ossification along the anterior aspect of the right middle cranial camilo a could represent dystrophic calcification or a small meningioma, unchanged from 2017. Incidental 3.5 mm of benign cerebellar tonsillar ectopia. Stable incidental pineal gland calcifications. Mild mucosal thickening anterior right ethmoid air cells. Mastoid air cells well pneumatized. Orbits and globes are intact. IMPRESSION: 1. Stable exam without acute intracranial abnormality seen. 2. Stable 6 mm focus of extra-axial calcification anterior right middle cranial fossa, either dystrop hic dural calcification or a small meningioma, unchanged from 2017. 3. Mild chronic right anterior ethmoid sinus disease.
== END | disposition home or self-care (01) ==
LOC: RADCTMAIN 12:17
PROVIDERS: ATTEND Family Medicine
DX: G93.89 Other specified disorders of brain (principal)
CPT/HCPCS: 70450

== ENCOUNTER → 2020-09-02 | Outpatient (CLI) | payer MEDICARE, OTHER ==
[2020-09-03 01:27] LABS: Hemoglobin A1C 4.8 % (4.0-6.0)
[2020-09-03 04:02] LABS: T4, Free (Free Thyroxine) 1.1 ng/dL (0.80-1.80)
[2020-09-03 04:08] LABS: African American GFR (CKD) 114.9 (60.0-200.0); Albumin 4.9 g/dL (3.80-4.90); Albumin/Globulin Ratio 2.45 (1.60-3.17); Anion Gap 9.5 mmol/L (4.00-12.00); Calcium 10.1 mg/dL (8.7-10.3); Carbon Dioxide 24.5 mmol/L (21.6-31.8); Lithium 0.4 mmol/L (0.5-1.2); Non-African American GFR(CKD) 99.1 (60.0-200.0); Potassium 4.8 mmol/L (3.5-5.5); Total Bilirubin 0.3 mg/dL (0.3-1.2); Total Protein 6.9 g/dL (6.2-8.2)
== END | disposition home or self-care (01) ==
LOC: LABWHC1 13:17
PROVIDERS: ATTEND Psychiatry & Neurology Psychiatry
DX: F31.5 Bipolar disorder, current episode depressed, severe, with psychotic features (principal)
CPT/HCPCS: 36415; 80053; 80178; 83036; 84439; 84443

== ENCOUNTER → 2021-05-24 | Outpatient (CLI) | payer MEDICARE, OTHER ==
[2021-05-24 15:12] LABS: African American GFR (CKD) 91.5 (60.0-200.0); Albumin 4.9 g/dL (3.80-4.90); Albumin/Globulin Ratio 2.33 (1.60-3.17); Anion Gap 7.7 mmol/L (4.00-12.00); BUN/Creat Ratio 10.83 Ratio (12.00-20.00); Calcium 9.6 mg/dL (8.7-10.3); Carbon Dioxide 25.3 mmol/L (21.6-31.8); Globulin 2.1 g/dL (1.6-3.3); Lithium 0.6 mmol/L (0.5-1.2); Potassium 4.5 mmol/L (3.5-5.5); Total Bilirubin 1.1 mg/dL (0.3-1.2)
[2021-05-24 16:31] LABS: Hemoglobin A1C 4.6 % (4.0-6.0)
== END | disposition home or self-care (01) ==
LOC: LABWHC1 09:11
PROVIDERS: ATTEND Psychiatry & Neurology Psychiatry
DX: F31.5 Bipolar disorder, current episode depressed, severe, with psychotic features (principal)
CPT/HCPCS: 36415; 80053; 80178; 83036; 84439; 84443